=== PATIENT | male | born 1955 | race Caucasian/White ===

== ENCOUNTER → 2018-06-01 | Outpatient (CLI) | payer OTHER ==
[2018-06-01 10:33] LABS: HGB 15.9 gm/dL (13.0-17.5); MCH 32.3 pg (25.0-35.0); MCV 97.9 fL (80.0-100.0); Mean Platelet Volume 13.6; RBC 4.91 m/uL (4.30-5.90); RDW 13.6 % (11.5-15.5)
[2018-06-01 10:57] LABS: Anion Gap 9 mmol/L; Blood Urea Nitrogen 22 mg/dL (9-20); Carbon Dioxide 24 mmol/L (22-30); Chloride 105 mmol/L (98-107); Glucose 135 mg/dL (74-99); Potassium 4.7 mmol/L (3.5-5.1); Sodium 138 mmol/L (137-145)
[2018-06-01 12:25] LABS: Platelet Count 27 k/uL (150-450)
== END | disposition home or self-care (01) ==
LOC: LABPAT 09:56
PROVIDERS: ATTEND Internal Medicine Clinical Cardiac Electrophysiology
DX: Z01.812 Encounter for preprocedural laboratory examination (principal); I25.5 Ischemic cardiomyopathy; I25.10 Atherosclerotic heart disease of native coronary artery without angina pectoris; I10 Essential (primary) hypertension
CPT/HCPCS: 80051; 82565; 82947; 84520; 85027

== ENCOUNTER 2018-06-04 09:53 | Day surgery (SDC) | payer OTHER ==
[2018-06-01 12:11] VITALS: BMI 35.5
[~2018-06-04 09:53] MED LIST: SODIUM CHLORIDE 0.9% 1,000 ML IV SCH
[2018-06-04] MEDS ORDERED: ceFAZolin 1,000 MG in SODIUM CHLORIDE 0.9% IRRIGATIO 250 ML IRRIGATION ONE (10:00)
[2018-06-04] MEDS ORDERED: ceFAZolin IN SWFI 2 GM/20 ML SYRINGE IVP ONE (10:00)
[2018-06-04 10:48] LABS: Basophils % (A) 0 %; Eosinophils # (A) 0.1 k/uL (0-0.7); Eosinophils % (A) 1 %; HCT 42.7 % (39.0-53.0); HGB 14.8 gm/dL (13.0-17.5); Lymphocytes # (A) 1.9 k/uL (1.0-4.8); Lymphocytes % (A) 19 %; MCHC 34.8 g/dL (31.0-37.0); MCV 95.1 fL (80.0-100.0); Mean Platelet Volume 14.6; Monocytes # (A) 0.8 k/uL (0-1.0); Monocytes % (A) 8 %; Neutrophils # (A) 7.3 k/uL (1.3-7.7); Neutrophils % (A) 70 %; RBC 4.49 m/uL (4.30-5.90); RDW 13.5 % (11.5-15.5); WBC 10.4 k/uL (3.8-10.6)
[2018-06-04 10:49] LABS: Anion Gap 7 mmol/L; Blood Urea Nitrogen 16 mg/dL (9-20); Calcium 9.2 mg/dL (8.4-10.2); Carbon Dioxide 23 mmol/L (22-30); Chloride 107 mmol/L (98-107); Glucose 130 mg/dL (74-99); Potassium 4.5 mmol/L (3.5-5.1); Sodium 137 mmol/L (137-145)
[2018-06-04 11:08] LABS: Large Platelets Present; Platelet Count 28 k/uL (150-450)
[2018-06-04 11:09] LABS: Polychromasia Present
[2018-06-04] MEDS ORDERED: MIDAZOLAM 2 MG/2 ML VIAL ONE (13:56)
[2018-06-04] MEDS ORDERED: PROPOFOL 10 MG/ML 20 ML VIAL IV ONE (13:56)
[2018-06-04] MEDS ORDERED: fentaNYL (PF) 50 MCG/ML 2 ML AMP ONE (13:56)
[2018-06-04] MEDS ORDERED: IOPAMIDOL-250 50ML BTL IV ONE (14:10)
[2018-06-04] MEDS ORDERED: LIDOCAINE 1% INJ 10MG/ML (20 ML MDV) ONE (14:30)
[2018-06-04] MEDS ORDERED: LIDOCAINE 1% INJ 10MG/ML (20 ML MDV) SQ ONE ×2 (14:42→14:51)
[2018-06-04] MEDS ORDERED: ACETAMINOPHEN TAB 325 MG TAB PO PRN ×2 (16:01→16:02)
[2018-06-04] MEDS ORDERED: ACETAMINOPHEN IV (For NPO) 1,000 MG in EMPTY BAG 1 BAG IVPB ONE (16:02)
[2018-06-04] MEDS ORDERED: ACETAMINOPHEN IV (For NPO) 1,000 MG/100 ML VIAL IVPB ONE (16:30)
--- NOTE | 2018-06-04 17:07 | LTR ---
DATE OF SERVICE: 06/04/[address] Ibrahim: I had the pleasure of seeing Martínez Esposito in electrophysiology followup. Mr. Esposito underwent a single-chamber ICD implantation successfully. He does have severe thrombocytopenia, but he had a minimal blood loss through the procedure. He tolerated the procedure well without any acute complications. He will be in the hospital overnight for IV antibiotics. He will be discharged home tomorrow. Unfortunately, since he is on steroids, he obviously is a slightly higher risk of long- term infection, but this is obviously unavoidable because of his thrombocytopenia and need for his immunosuppressive therapy. Thank you for entrusting me in the care of your patient. Warm regards, Sincerely, CRISTEL / HERBIE: [id number] /
--- NOTE | 2018-06-04 17:07 | PCN ---
PROCEDURE NOTE Martínez Esposito is a 62-year-old male patient who has severe ischemic cardiomyopathy, ejection fraction 30-35%. Class 2 heart failure on chronic medical therapy. No ischemia on recent stress testing, frequent PVCs who was recommended a single-chamber ICD for primary prevention of sudden cardiac . He has severe thrombocytopenia and is on steroid therapy and now is on a low dose of 5 mg p.o. daily. His platelet count is 28,000. DESCRIPTION OF PROCEDURE: Brought to the EP lab in a fasting state. Written informed consent was obtained prior to the procedure. The left shoulder area was prepped and draped as per protocol. 1% lidocaine was used for local anesthesia. AQUA-Mantis and the Aqua blade was used to provide hemostasis. A pocket was made in the left pectoral area. Complete hemostasis was assured throughout the procedure. There was minimal blood loss. The left axillary vein was accessed at a single point and via an appropriately-sized introducer sheath, a [employer] ICD lead was positioned in the low RV septum and screwed in. This was model number [id number] [id number], 58 cm length and serial number [id number]. The R-waves were 11.7 mV. Pacing impedance 700 ohms, pacing threshold 0.5 V at 0.5 milliseconds. High-voltage impedance 82 ohms, current of injury protocol was followed. Leads secured to the underlying pectoralis fascia with 2 nonabsorbable sutures. Pocket was irrigated with antibiotic solution. Leads were then connected to the generator. Ellipse VR CD 1411-36 Q serial [id number]. The leads and the generator were then placed in subfascial pocket and the wound was closed in 3 layers and dressed per protocol. The device was then programmed to VVI at 40 beats per minute, parameters were programmed. Appropriate antitachycardia pacing cardioversion defibrillation programmed. RESULTS: Successful single-chamber ICD implantation for primary prevention of sudden cardiac in a gentleman with severe ischemic cardiomyopathy, congestive heart failure class 2, old myocardial infarction, coronary artery disease, thrombocytopenia, and frequent PVCs. MMODL / IJN: [id number] /
[2018-06-04] MEDS: ceFAZolin IN SWFI 2 GM/20 ML SYRINGE IVP SCH ×2 (17:36→22:31)
[2018-06-04] MEDS: PANTOPRAZOLE 40 MG TABLET PO SCH (17:37)
[2018-06-04] MEDS: HYDROcodone/APAP 5-325MG 1 EACH TAB PO PRN ×2 (17:39→22:31)
[2018-06-04] MEDS: CARVEDILOL 6.25 MG TAB PO SCH (20:28)
[2018-06-04] MEDS ORDERED: ATORVASTATIN 40 MG TAB PO SCH (21:00)
[2018-06-05] MEDS: ceFAZolin IN SWFI 2 GM/20 ML SYRINGE IVP SCH ×2 (05:47→11:35)
--- NOTE | 2018-06-05 07:04 | XR ---
EXAMINATION TYPE: XR chest 2V DATE OF EXAM: 06/05/2018 COMPARISON: 05/05/2011 HISTORY: 62-year-old male placement check TECHNIQUE: Frontal and lateral views FINDINGS: Heart normal size. Aorta and pulmonary vasculature within normal limits. Left anterior chest wall AIC D generator with right ventricular lead. No consolidation, pneumothorax, or pleural effusion. IMPRESSION: No acute cardiopulmonary process. Left-sided AICD generator with single right ventricular lead.
[2018-06-05] MEDS: CARVEDILOL 6.25 MG TAB PO SCH (07:43)
[2018-06-05] MEDS: PANTOPRAZOLE 40 MG TABLET PO SCH (07:43)
--- NOTE | 2018-06-05 08:30 | P.DS ---
Providers Attending physician: Vito Kim Primary care physician: Jac [facility] Course: Patient is doing well. No chest discomfort dizziness lightheadedness shortness of breath no stroke or swelling over the ICD site Vitals stable afebrile 97.8F pulse rate in the 60s blood pressure 108/65 mmHg normal respirations Breath sounds are clear no rhonchi no crackles Heart sounds S1 and S2 are soft and normal no murmurs or gallops or rub Exchanges are warm No edema Abdomen is soft Impression Ischemic cardiomyopathy Permanent atrial fibrillation Congestive heart failure class II Frequent PVCs CAD him a old [place] Suggest ICD was interrogated today and is within normal limits. Chest x-ray is within normal limits. Patient be discharged home on his cardiac medications after completion of IV antibiotics and will follow-up in the device clinic and 5 days and with me in about 3-4 months DFT testing in 3 months Patient Condition at Discharge: Stable Plan - Discharge Summary Discharge Rx Participant: No New Discharge Prescriptions: Continue RX: predniSONE 5 mg PO QAM RX: Spironolactone [Aldactone] 25 mg PO QAM RX: Cholecalciferol [Vitamin D3] 1,000 unit PO QAM RX: Lisinopril [Zestril] 10 mg PO QAM RX: Omeprazole [PriLOSEC] 20 mg PO BID RX: Carvedilol [Coreg] 6.25 mg PO BID RX: Atorvastatin [Lipitor] 40 mg PO HS RX: Acetaminophen [Tylenol Arthritis] 650 mg PO Q8H PRN PRN Reason: Pain Discharge Medication List RX: Acetaminophen [Tylenol Arthritis] 650 mg PO Q8H PRN 06/01/18 [History] RX: Atorvastatin [Lipitor] 40 mg PO HS 06/01/18 [History] RX: Carvedilol [Coreg] 6.25 mg PO BID 06/01/18 [History] RX: Cholecalciferol [Vitamin D3] 1,000 unit PO QAM 06/01/18 [History] RX: Lisinopril [Zestril] 10 mg PO QAM 06/01/18 [History] RX: Omeprazole [PriLOSEC] 20 mg PO BID 06/01/18 [History] RX: Spironolactone [Aldactone] 25 mg PO QAM 06/01/18 [History] RX: predniSONE 5 mg PO QAM 06/01/18 [History] Follow up Appointment(s)/Referral(s): Vito Kim MD [STAFF PHYSICIAN] - 1 Week (Device clinic follow-up in 5 days Follow-up with Dr. Florence in 3 months) Discharge Disposition: HOME SELF-CARE
[2018-06-05] MEDS ORDERED: SPIRONOLACTONE 25 MG TAB PO SCH (09:00)
[2018-06-05] MEDS ORDERED: predniSONE 5 MG TAB PO SCH (09:00)
[2018-06-05] MEDS ORDERED: LISINOPRIL 10 MG TAB PO SCH (09:00)
[2018-06-05 09:34] VITALS: BP 120/66; PULSE 98; RESP 16; TEMP 97
== END 2018-06-05 12:02 | disposition home or self-care (01) ==
LOC: CATHEP 09:53 → 3OBS 15:51 → CATHEP 06-05 12:02
PROVIDERS: ATTEND Internal Medicine Clinical Cardiac Electrophysiology
DX: I25.5 Ischemic cardiomyopathy (principal); Z00.6 Encounter for examination for normal comparison and control in clinical research program; I48.2 Chronic atrial fibrillation; I11.0 Hypertensive heart disease with heart failure; I50.9 Heart failure, unspecified; I49.3 Ventricular premature depolarization; I25.10 Atherosclerotic heart disease of native coronary artery without angina pectoris; D69.3 Immune thrombocytopenic purpura; I25.2 Old myocardial infarction; J44.9 Chronic obstructive pulmonary disease, unspecified; K21.9 Gastro-esophageal reflux disease without esophagitis; Z95.5 Presence of coronary angioplasty implant and graft; Z79.52 Long term (current) use of systemic steroids; Z79.899 Other long term (current) drug therapy; Z88.6 Allergy status to analgesic agent; Z87.891 Personal history of nicotine dependence
CPT/HCPCS: 33249; 86900; 86901; 80048; 85025; 86850; 71046; C1769 ×2; C1892; C1722; C1777; J0690 ×3; J2001; J0131; J7512; Q9966

== ENCOUNTER 2018-10-11 06:22 | Day surgery (SDC) | payer MEDICARE, OTHER ==
[2018-10-09 14:31] VITALS: BMI 34.7
[~2018-10-11 06:22] MED LIST changes: +LACTATED RINGERS 1,000 ML IV SCH
[2018-10-11 07:10] VITALS: RESP 16; TEMP 8.4
[2018-10-11] MEDS ORDERED: MIDAZOLAM 2 MG/2 ML VIAL ONE (07:18)
[2018-10-11] MEDS ORDERED: PROPOFOL 10 MG/ML 20 ML VIAL IV ONE (07:18)
[2018-10-11] MEDS ORDERED: LIDOCAINE 1% INJ 10MG/ML (20 ML MDV) ONE (07:18)
--- NOTE | 2018-10-11 08:32 | PCN ---
PROCEDURE NOTE Mr. Esposito who was brought in for ICD testing under anesthesia. He had an single- chamber ICD implanted for primary prevention of sudden cardiac about 3 months back. This is the initial testing. The lead was placed on the COI protocol. He has an ellipse VR 1411-36 Q ICD, serial #[id number], [employer]. Pacing threshold is less than 0.25 V at 0.5 milliseconds. R-waves 11.7 mV, pacing impedance 630 ohms, shock impedance 71 ohms. ICD testing was performed under anesthesia, DC fibber shock was used to induce ventricular fibrillation. This was adequately and appropriately detected at least sensitivity and successfully internally defibrillated with a 10-joule shock capped total polarity. Charge time 1.6 seconds, shock impedance 71 ohms. No post shock noise. No dropouts. The device was then reprogrammed, sensitivity was reprogrammed to 0.5 mV and mid-LAD programming was programmed. Appropriate antitachycardia pacing cardioversion defibrillation programmed. RESULT: Successful ICD testing with DFT at or below 10 joules. ICD interrogation with reprogramming performed appropriately. PLAN: Continue heart failure medications. Follow up in the Device Clinic in 4 months and follow with Dr. Kim in 6 months. MMODL / IJN: [id number] /
[2018-10-11 08:33] VITALS: BP 98/57; PULSE 65
== END 2018-10-11 08:45 | disposition home or self-care (01) ==
LOC: CATHEP 06:22
PROVIDERS: ATTEND Internal Medicine Clinical Cardiac Electrophysiology
DX: Z45.02 Encounter for adjustment and management of automatic implantable cardiac defibrillator (principal); I25.10 Atherosclerotic heart disease of native coronary artery without angina pectoris; Z95.5 Presence of coronary angioplasty implant and graft; I25.5 Ischemic cardiomyopathy; E78.5 Hyperlipidemia, unspecified; I49.3 Ventricular premature depolarization; I11.0 Hypertensive heart disease with heart failure; I50.22 Chronic systolic (congestive) heart failure; I25.2 Old myocardial infarction; F17.210 Nicotine dependence, cigarettes, uncomplicated; Z79.52 Long term (current) use of systemic steroids; Z79.899 Other long term (current) drug therapy; Z82.49 Family history of ischemic heart disease and other diseases of the circulatory system; Z88.6 Allergy status to analgesic agent
CPT/HCPCS: 93642; J2250; J2001; J2704

== ENCOUNTER 2020-06-30 12:13 | Inpatient (IN) | payer MEDICARE ==
[2020-06-30] MEDS ORDERED: MORPHINE SULFATE 4 MG/ML SYRINGE IVP STA (13:15)
--- NOTE | 2020-06-30 13:26 | ED ---
General Adult HPI - General Source: family, EMS, RN notes reviewed, old records reviewed Mode of arrival: EMS Limitations: altered mental status, physical limitation <Shanice Severino - Last Filed: 06/30/20 14:31> <Birgit Giles - Last Filed: 07/02/20 23:11> - General Chief complaint: Urogenital Stated complaint: Blood in Urine Time Seen by Provider: 06/30/20 12:41 - History of Present Illness Initial comments: Patient is a 64-year-old male who presents emergency room today for concerns for hematuria from Barrientos catheter output as well as a cough. Patient is here with his daughter who is his main caregiver. Patient was in well health up until 2 weeks ago when he became dizzy and fell down the stairs. Family does not know if a stroke causing him to fall down the stairs but Patient subsequently suffered from a intracranial hemorrhage. Was seen and treated at [facility] and did result in a partial left-sided craniotomy. Patient since that time has been minimal verbal communication. He was also on a ventilator for one week, And reportedly had a feeding tube and indwelling Barrientos catheter. During his hospital stay he had agitation episodes and pulled out his feeding tube and Barrientos catheter. That subsequently resulted in the Patient getting intermittent urinary straight cath's. And upon discharge from the hospital they did put an indwelling Barrientos catheter for the daughter to manage this care. After Patient was extubated Patient continued to improve and was discharged from our Hospital yesterday. They made an [address] from [facility] to their home and were attempting to have visiting nurses establish with his care. Patient did not have a visiting nurse as of today and the daughter's concern with the hematuria and productive cough sound that he needed to be brought to the hospital again for reevaluation. They recorded no sweating or fevers. Patient is mostly nonverbal but will respond occasionally with the daughter with one word answers. Past medical history includes ITP, and hypertension. (Shanice Severino) - Related Data Home Medications Medication Instructions Recorded Confirmed Atorvastatin [Lipitor] 40 mg PO HS 06/01/18 06/30/20 carvediloL [Coreg] 6.25 mg PO BID-W/MEALS 06/01/18 06/30/20 lisinopriL [Zestril] 10 mg PO BID 06/01/18 06/30/20 Tamsulosin HCl [Flomax] 0.4 mg PO DAILY 06/30/20 06/30/20 levETIRAcetam [Keppra] 500 mg PO BID 06/30/20 06/30/20 Allergies Allergy/AdvReac Type Severity Reaction Status Date / Time naproxen sodium [From Aleve] Allergy Rash/Hives Verified 06/30/20 15:14 latex AdvReac Rash/Hives Verified 06/30/20 15:37 Review of Systems ROS Other: All systems not noted in ROS Statement are negative. <Shanice Severino - Last Filed: 06/30/20 14:31> ROS Other: All systems not noted in ROS Statement are negative. <Birgit Giles - Last Filed: 07/02/20 23:11> ROS Statement: Those systems with pertinent positive or pertinent negative responses have been documented in the HPI. Past Medical History Past Medical History: Blood Disorder, Coronary Artery Disease (CAD), CVA/TIA, Hyperlipidemia, Hypertension Additional Past Medical History / Comment(s): Recent fall down stairs 2 weeks ago and had two brain bleeds. History of Any Multi-Drug Resistant Organisms: None Reported Past Surgical History: Back Surgery, Heart Catheterization With Stent, Orthopedic Surgery Additional Past Surgical History / Comment(s): right elbow, craniotomy Past Anesthesia/Blood Transfusion Reactions: No Reported Reaction Date of Last Stent Placement:: 2010 Past Psychological History: No Psychological Hx Reported Smoking Status: Former smoker Past Alcohol Use History: Occasional Past Drug Use History: None Reported - Past Family History Sister(s) Family Medical History: Cancer Additional Family Medical History / Comment(s): lung breast Mother Family Medical History: Cancer Brother(s) Family Medical History: Cancer Additional Family Medical History / Comment(s): colon <Shanice Severino - Last Filed: 06/30/20 14:31> General Exam Limitations: altered mental status, physical limitation General appearance: alert, obtunded, other (Patient is nonverbal for the senior writer. Does not answer questions. Will open his eyes In follow some commands.) Head exam: Present: atraumatic, normocephalic, normal inspection Eye exam: Present: normal appearance, PERRL, EOMI. Absent: scleral icterus, conjunctival injection, periorbital swelling ENT exam: Present: normal exam, mucous membranes dry, mucous membranes moist Neck exam: Present: normal inspection. Absent: tenderness, meningismus, lymphadenopathy Respiratory exam: Present: normal lung sounds bilaterally, other (Patient has lung sounds in left lower base and crackles are noted.). Absent: respiratory distress, wheezes, rales, rhonchi, stridor Cardiovascular Exam: Present: regular rate, normal rhythm, normal heart sounds. Absent: systolic murmur, diastolic murmur, rubs, gallop, clicks GI/Abdominal exam: Present: soft, normal bowel sounds. Absent: distended, tenderness, guarding, rebound, rigid exam: Absent: normal inspection (Patient and likely catheter with purulent drainage around the entrance of catheter. There is blood and clots within the Barrientos.) Extremities exam: Present: normal inspection, full ROM, normal capillary refill. Absent: tenderness, pedal edema, joint swelling, calf tenderness Back exam: Present: normal inspection Neurological exam: Present: alert, oriented X3, CN II-XII intact Psychiatric exam: Present: normal affect Skin exam: Present: warm, dry, intact, normal color. Absent: rash <Shanice Severino - Last Filed: 06/30/20 14:31> - General Exam Comments Initial Comments: 64 year old male, non verbal. No acute distress. (Shaniec Severino) Course Vital Signs 06/30/20 06/30/20 12:15 14:04 Temperature 97.8 F Pulse Rate 80 79 Respiratory 18 18 Rate Blood Pressure 149/75 154/75 O2 Sat by Pulse 95 97 Oximetry Medical Decision Making - Lab Data Result diagrams: 06/30/20 13:06 06/30/20 13:06 - Radiology Data Radiology results: report reviewed <Shanice Severino - Last Filed: 06/30/20 14:31> - Lab Data Result diagrams: 07/02/20 06:54 07/02/20 06:54 <Birgit Giles - Last Filed: 07/02/20 23:11> - Medical Decision Making 64-year-old male with recent intracranial hemorrhage suffering from craniotomy and nonverbal presents emergency department today for evaluation for hematuria and cloudiness in his Barrientos catheter. He returned to his home locally from [facility] after his initial hospital stay from the fall and intracranial hemorrhage. He was also placed on a ventilator. His concern for cough. Patient's chest x-rays reviewed negative for acute process. Patient is a former smoker and underlying COPD history. Patient CBC shows leukocytosis of 20,000. Patient's urinalysis is positive for infection. The initial Barrientos catheter is removed and family states that they would prefer to see if he can urinate on his own if not able to then another Barrientos catheter placed to be placed. At this time he is in a brief to see. Able to urinate on his own. At this time Patient was given IV Rocephin. Discussed case with Dr. Webb who discussed the case with Dr. Nicolas. Family also requests assistance with placement for visiting nurses to help with his care. (Shanice Severino) I was available for consultation in the emergency department. The history and physical exam were done by the midlevel provider. I was consulted for this patients care. I reviewed the case with the midlevel provider and based on their presentation of the patient, I agree with the assessment, medical decision making and plan of care as documented. Chart was dictated using Gamar dictation software. Attempts were made to correct any dictation errors however some typographical errors may persist. Patient was seen during a national state of emergency due to the Covid-19 pandemic. (Birgit Giles) - Lab Data Lab Results 06/30/20 06/30/20 06/30/20 Range/Units 13:06 13:06 13:06 WBC 20.8 H (3.8-10.6) k/uL RBC 3.81 L (4.30-5.90) m/uL Hgb 11.5 L (13.0-17.5) gm/dL Hct 35.8 L (39.0-53.0) % MCV 94.1 (80.0-100.0) fL MCH 30.3 (25.0-35.0) pg MCHC 32.2 (31.0-37.0) g/dL RDW 13.1 (11.5-15.5) % Plt Count 245 (150-450) k/uL Neutrophils % 84 % Lymphocytes % 8 % Monocytes % 4 % Eosinophils % 1 % Basophils % 1 % Neutrophils # 17.4 H (1.3-7.7) k/uL Lymphocytes # 1.7 (1.0-4.8) k/uL Monocytes # 0.9 (0-1.0) k/uL Eosinophils # 0.2 (0-0.7) k/uL Basophils # 0.1 (0-0.2) k/uL Manual Slide Review Large Platelets Hypochromasia PT 10.6 (9.0-12.0) sec INR 1.0 (<1.2) APTT 23.1 (22.0-30.0) sec Sodium (137-145) mmol/L Potassium (3.5-5.1) mmol/L Chloride (98-107) mmol/L Carbon Dioxide (22-30) mmol/L Anion Gap mmol/L BUN (9-20) mg/dL Creatinine (0.66-1.25) mg/dL Est GFR (CKD-EPI)AfAm (>60 ml/min/1.73 sqM) Est GFR (CKD-EPI)NonAf (>60 ml/min/1.73 sqM) Glucose (74-99) mg/dL Plasma Lactic Acid Werner (0.7-2.0) mmol/L Calcium (8.4-10.2) mg/dL Total Bilirubin (0.2-1.3) mg/dL AST (17-59) U/L ALT (4-49) U/L Alkaline Phosphatase (38-126) U/L Total Protein (6.3-8.2) g/dL Albumin (3.5-5.0) g/dL Urine Color Red Urine Appearance Cloudy (Clear) Urine pH 6.0 (5.0-8.0) Ur Specific Valier 1.022 (1.001-1.035) Urine Protein 2+ H (Negative) Urine Glucose (UA) Negative (Negative) Urine Ketones Negative (Negative) Urine Blood Large H (Negative) Urine Nitrite Negative (Negative) Urine Bilirubin Negative (Negative) Urine Urobilinogen <2.0 (<2.0) mg/dL Ur Leukocyte Esterase Large H (Negative) Urine RBC >182 H (0-5) /hpf Urine WBC >182 H (0-5) /hpf Urine Bacteria Occasional H (None) /hpf Urine Mucus Many H (None) /hpf 08/25/20 08/25/20 08/26/20 Range/Units 13:06 13:06 08:54 WBC 19.9 H (3.8-10.6) k/uL RBC 3.35 L (4.30-5.90) m/uL Hgb 10.3 L (13.0-17.5) gm/dL Hct 31.7 L (39.0-53.0) % MCV 94.6 (80.0-100.0) fL MCH 30.8 (25.0-35.0) pg MCHC 32.6 (31.0-37.0) g/dL RDW 13.3 (11.5-15.5) % Plt Count 185 (150-450) k/uL Neutrophils % % Lymphocytes % % Monocytes % % Eosinophils % % Basophils % % Neutrophils # (1.3-7.7) k/uL Lymphocytes # (1.0-4.8) k/uL Monocytes # (0-1.0) k/uL Eosinophils # (0-0.7) k/uL Basophils # (0-0.2) k/uL Manual Slide Review Large Platelets Hypochromasia Slight PT (9.0-12.0) sec INR (<1.2) APTT (22.0-30.0) sec Sodium 135 L (137-145) mmol/L Potassium 4.5 (3.5-5.1) mmol/L Chloride 105 (98-107) mmol/L Carbon Dioxide 21 L (22-30) mmol/L Anion Gap 9 mmol/L BUN 17 (9-20) mg/dL Creatinine 0.48 L (0.66-1.25) mg/dL Est GFR (CKD-EPI)AfAm >90 (>60 ml/min/1.73 sqM) Est GFR (CKD-EPI)NonAf >90 (>60 ml/min/1.73 sqM) Glucose 108 H (74-99) mg/dL Plasma Lactic Acid Werner 0.9 (0.7-2.0) mmol/L Calcium 9.2 (8.4-10.2) mg/dL Total Bilirubin 0.8 (0.2-1.3) mg/dL AST 74 H (17-59) U/L ALT 93 H (4-49) U/L Alkaline Phosphatase 99 (38-126) U/L Total Protein 6.8 (6.3-8.2) g/dL Albumin 3.6 (3.5-5.0) g/dL Urine Color Urine Appearance (Clear) Urine pH (5.0-8.0) Ur Specific Valier (1.001-1.035) Urine Protein (Negative) Urine Glucose (UA) (Negative) Urine Ketones (Negative) Urine Blood (Negative) Urine Nitrite (Negative) Urine Bilirubin (Negative) Urine Urobilinogen (<2.0) mg/dL Ur Leukocyte Esterase (Negative) Urine RBC (0-5) /hpf Urine WBC (0-5) /hpf Urine Bacteria (None) /hpf Urine Mucus (None) /hpf 07/01/20 07/02/20 07/02/20 Range/Units 08:54 06:54 06:54 WBC 14.4 H (3.8-10.6) k/uL RBC 3.53 L (4.30-5.90) m/uL Hgb 10.8 L (13.0-17.5) gm/dL Hct 33.7 L (39.0-53.0) % MCV 95.6 (80.0-100.0) fL MCH 30.5 (25.0-35.0) pg MCHC 31.9 (31.0-37.0) g/dL RDW 13.5 (11.5-15.5) % Plt Count 182 (150-450) k/uL Neutrophils % 82 % Lymphocytes % 10 % Monocytes % 5 % Eosinophils % 1 % Basophils % 1 % Neutrophils # 11.7 H (1.3-7.7) k/uL Lymphocytes # 1.4 (1.0-4.8) k/uL Monocytes # 0.7 (0-1.0) k/uL Eosinophils # 0.2 (0-0.7) k/uL Basophils # 0.1 (0-0.2) k/uL Manual Slide Review Performed Large Platelets Present Hypochromasia Slight PT (9.0-12.0) sec INR (<1.2) APTT (22.0-30.0) sec Sodium 136 L 139 (137-145) mmol/L Potassium 3.5 3.7 (3.5-5.1) mmol/L Chloride 104 108 H (98-107) mmol/L Carbon Dioxide 24 25 (22-30) mmol/L Anion Gap 8 6 mmol/L BUN 11 10 (9-20) mg/dL Creatinine 0.50 L 0.49 L (0.66-1.25) mg/dL Est GFR (CKD-EPI)AfAm >90 >90 (>60 ml/min/1.73 sqM) Est GFR (CKD-EPI)NonAf >90 >90 (>60 ml/min/1.73 sqM) Glucose 133 H 95 (74-99) mg/dL Plasma Lactic Acid Werner (0.7-2.0) mmol/L Calcium 8.7 9.0 (8.4-10.2) mg/dL Total Bilirubin 0.4 (0.2-1.3) mg/dL AST 43 (17-59) U/L ALT 77 H (4-49) U/L Alkaline Phosphatase 90 (38-126) U/L Total Protein 5.7 L (6.3-8.2) g/dL Albumin 3.0 L (3.5-5.0) g/dL Urine Color Urine Appearance (Clear) Urine pH (5.0-8.0) Ur Specific Valier (1.001-1.035) Urine Protein (Negative) Urine Glucose (UA) (Negative) Urine Ketones (Negative) Urine Blood (Negative) Urine Nitrite (Negative) Urine Bilirubin (Negative) Urine Urobilinogen (<2.0) mg/dL Ur Leukocyte Esterase (Negative) Urine RBC (0-5) /hpf Urine WBC (0-5) /hpf Urine Bacteria (None) /hpf Urine Mucus (None) /hpf 06/30/20 13:35 EKG shows normal sinus rhythm left on a branch block. Prolonged QT. Abnormal EKG. Ventricular rate of 78 bpm. NM interval is 140 ms. Respirations 110 ms. QT QTc is 4:30/4 and 90 ms. (Shanice Severino) - Radiology Data Chest x-ray is negative for any acute cardiopulmonary disease. (Shanice Severino) Disposition Is patient prescribed a controlled substance at d/c from ED?: No Time of Disposition: 14:33 <Shanice Severino - Last Filed: 06/30/20 14:31> <Birgit Giles - Last Filed: 07/02/20 23:11> Clinical Impression: SIRS (systemic inflammatory response syndrome), UTI (urinary tract infection), Hx of intracranial hemorrhage, S/P craniotomy Disposition: ADMITTED IP TO THIS HOSP Condition: Stable
[2020-06-30] MEDS: SODIUM CHLORIDE 0.9% 500 ML 500 ML IV SCH ×2 (13:27→14:22)
--- NOTE | 2020-06-30 13:30 | XR ---
EXAMINATION TYPE: XR chest 2V DATE OF EXAM: 06/30/2020 COMPARISON: 06/05/2018 HISTORY: Shortness of breath TECHNIQUE: Frontal and lateral views of the chest are obtained. FINDINGS: Scattered senescent parenchymal changes noted. Hyperinflation compatible with COPD. No evidence for infiltrate. No evidence for atelectasis. Heart size is stable. Mediastinal structures are stable and grossly unremarkable. No evidence for hilar prominence. Degenerative changes dorsal spine. IMPRESSION: 1. No evidence for acute pulmonary disease.
[2020-06-30 13:33] LABS: Basophils # (A) 0.1 k/uL (0-0.2); Basophils % (A) 1 %; Eosinophils # (A) 0.2 k/uL (0-0.7); Eosinophils % (A) 1 %; HCT 35.8 % (39.0-53.0); HGB 11.5 gm/dL (13.0-17.5); Lymphocytes # (A) 1.7 k/uL (1.0-4.8); Lymphocytes % (A) 8 %; MCH 30.3 pg (25.0-35.0); MCHC 32.2 g/dL (31.0-37.0); MCV 94.1 fL (80.0-100.0); Mean Platelet Volume 11.7; Monocytes # (A) 0.9 k/uL (0-1.0); Monocytes % (A) 4 %; Neutrophils # (A) 17.4 k/uL (1.3-7.7); Neutrophils % (A) 84 %; Platelet Count 245 k/uL (150-450); RBC 3.81 m/uL (4.30-5.90); RDW 13.1 % (11.5-15.5); WBC 20.8 k/uL (3.8-10.6)
[2020-06-30 13:39] LABS: Partial Thromboplastin Time 23.1 sec (22.0-30.0); Prothrombin Time 10.6 sec (9.0-12.0)
[2020-06-30 13:40] LABS: ALT 93 U/L (4-49); AST 74 U/L (17-59); African American GFR (CKD) >90 (>60 ml/min/1.73 sqM); Albumin 3.6 g/dL (3.5-5.0); Alkaline Phosphatase 99 U/L (38-126); Anion Gap 9 mmol/L; Blood Urea Nitrogen 17 mg/dL (9-20); Calcium 9.2 mg/dL (8.4-10.2); Carbon Dioxide 21 mmol/L (22-30); Chloride 105 mmol/L (98-107); Glucose 108 mg/dL (74-99); Non-African American GFR(CKD) >90 (>60 ml/min/1.73 sqM); Sodium 135 mmol/L (137-145); Total Bilirubin 0.8 mg/dL (0.2-1.3); Total Protein 6.8 g/dL (6.3-8.2)
[2020-06-30 13:46] LABS: Appearance,Urine Cloudy (Clear); Bacteria,Urine Occasional /hpf; Bilirubin,Urine Negative (Negative); Blood,Urine Large (Negative); Color,Urine Red; Glucose,Urine (UA) Negative (Negative); Ketones,Urine Negative (Negative); Leukocyte Esterase,Urine Large (Negative); Mucus,Urine Many /hpf; Nitrite,Urine Negative (Negative); Protein,Urine 2+ (Negative); RBC,Urine >182 /hpf (0-5); Specific Gravity,Urine 1.022 (1.001-1.035); Urobilinogen,Urine <2.0 mg/dL (<2.0); WBC,Urine >182 /hpf (0-5)
[2020-06-30] MEDS ORDERED: cefTRIAXone IN SWFI 1,000 MG/10 ML SYRINGE IVP STA (13:49)
[2020-06-30 13:51] LABS: Potassium 4.5 mmol/L (3.5-5.1)
[2020-06-30] MEDS ORDERED: ONDANSETRON 4 MG/2 ML VIAL IVP PRN (14:34)
[2020-06-30] MEDS ORDERED: MORPHINE SULFATE 4 MG/ML SYRINGE IV PRN (14:34)
[2020-06-30] MEDS ORDERED: NALOXONE 0.4 MG/ML 1 ML VIAL IV PRN (14:34)
[2020-06-30] MEDS: SODIUM CHLORIDE 0.9% 1,000 ML IV SCH (15:31)
[2020-06-30] MEDS ORDERED: QUEtiapine 25 MG TAB PO PRN (15:57)
--- NOTE | 2020-06-30 16:49 | P.HPIM ---
History of Present Illness Patient is a 64-year-old male who presents emergency room today for concerns for hematuria from Barrientos catheter output as well as a cough. Patient is here with his daughter who is his main caregiver. Patient was in well health up until 2 weeks ago when he became dizzy and fell down the stairs. Family does not know if a stroke causing him to fall down the stairs but Patient subsequently suffered from a intracranial hemorrhage. Was seen and treated at [facility] and did result in a partial left-sided craniotomy. Patient since that time has been minimal verbal communication. He was also on a ventilator for one week, And reportedly had a feeding tube and indwelling Barrientos catheter. During his hospital stay he had agitation episodes and pulled out his feeding tube and Barrientos catheter. That subsequently resulted in the Patient getting intermittent urinary straight cath's. And upon discharge from the hospital they did put an indwelling Barrientos catheter for the daughter to manage this care. After Patient was extubated Patient continued to improve and was discharged from our Hospital yesterday. They made an [address] from [facility] to their home and were attempting to have visiting nurses establish with his care. Patient did not have a visiting nurse as of today and the daughter's concern with the hematuria and productive cough sound that he needed to be brought to the hospital again for reevaluation. They recorded no sweating or fevers. Patient is mostly nonverbal but will respond occasionally with the daughter with one word answers. Patient didn't have any aneurysm and unsure whether patient had a spontaneous intracranial hemorrhage are secondary to trauma. Patient's disposition to subacute rehabitation was discussed with the family and family family decided to take him home and patient was discharged home with home care. Family is unable to take care of him at all and noticed significant amount of clots in the Barrientos catheter and also purulent discharge from the site of insertion. Patient had urinalysis which was significantly abnormal with significantly elevated white b lood cell count of RBC and leukocyte esterase. Patient was started on Rocephin. Barrientos catheter was removed but plan is to do straight catheterization today with frequent bladder scans. Patient did have agitation episodes of the other hospital. Patient was discharged yesterday. She was started on Flomax about 3 days ago, patient doesn't have any fever does have significant leukocytosis with white blood cell count going up to 20,000 Review of Systems Unable to obtain due to his clinical condition Past Medical History Past Medical History: Blood Disorder, Coronary Artery Disease (CAD), CVA/TIA, Hyperlipidemia, Hypertension Additional Past Medical History / Comment(s): Recent fall down stairs 2 weeks ago and had two brain bleeds. History of Any Multi-Drug Resistant Organisms: None Reported Past Surgical History: Back Surgery, Heart Catheterization With Stent, Orthopedic Surgery Additional Past Surgical History / Comment(s): right elbow, craniotomy Past Anesthesia/Blood Transfusion Reactions: No Reported Reaction Date of Last Stent Placement:: 2010 Past Psychological History: No Psychological Hx Reported Smoking Status: Former smoker Past Alcohol Use History: Occasional Additional Past Alcohol Use History / Comment(s): has smoked for about 50 yrs; cut down to 5 cigs a day Past Drug Use History: None Reported - Past Family History Sister(s) Family Medical History: Cancer Additional Family Medical History / Comment(s): lung breast Mother Family Medical History: Cancer Brother(s) Family Medical History: Cancer Additional Family Medical History / Comment(s): colon Medications and Allergies Home Medications Medication Instructions Recorded Confirmed Type Atorvastatin [Lipitor] 40 mg PO HS 06/01/18 06/30/20 History carvediloL [Coreg] 6.25 mg PO BID-W/MEALS 06/01/18 06/30/20 History lisinopriL [Zestril] 10 mg PO BID 06/01/18 06/30/20 History Tamsulosin HCl [Flomax] 0.4 mg PO DAILY 06/30/20 06/30/20 History levETIRAcetam [Keppra] 500 mg PO BID 06/30/20 06/30/20 History Allergies Allergy/AdvReac Type Severity Reaction Status Date / Time naproxen sodium [From Aleve] Allergy Rash/Hives Verified 06/30/20 15:14 latex AdvReac Rash/Hives Verified 06/30/20 15:37 Physical Exam Vitals: Vital Signs Temp Pulse Pulse Resp BP BP Pulse Ox 06/30/20 16:12 98.1 F 71 18 154/70 95 06/30/20 16:00 71 18 06/30/20 15:36 98.3 F 81 18 160/72 98 06/30/20 14:04 79 18 154/75 97 06/30/20 12:15 97.8 F 80 18 149/75 95 Intake and Output 06/30/20 06/30/20 06/30/20 06:59 14:59 22:59 Other: Voiding Method Indwelling Catheter Indwelling Catheter Weight 113.398 kg 113.398 kg PHYSICAL EXAMINATION: GENERAL: Patient is nonverbal but appears to understand some. HEENT: Pupils are round and equally reacting to light. EOMI. No scleral icterus. No conjunctival pallor. Normocephalic, patient has left scalp craniotomy scar. No pharyngeal erythema. No thyromegaly. CARDIOVASCULAR: S1 and S2 present. No murmurs, rubs, or gallops. PULMONARY: Chest is clear to auscultation, no wheezing or crackles. ABDOMEN: Soft, nontender, nondistended, normoactive bowel sounds. No palpable organomegaly. MUSCULOSKELETAL: No joint swelling or deformity. EXTREMITIES: No cyanosis, clubbing, or pedal edema. NEUROLOGICAL: Does have decreased strength in both lower extremities unable to clearly assess as patient doesn't follow commands very well SKIN: No rashes. Results CBC & Chem 7: 06/30/20 13:06 06/30/20 13:06 Labs: Abnormal Lab Results - Last 24 Hours (Table) 06/30/20 06/30/20 06/30/20 Range/Units 13:06 13:06 13:06 WBC 20.8 H (3.8-10.6) k/uL RBC 3.81 L (4.30-5.90) m/uL Hgb 11.5 L (13.0-17.5) gm/dL Hct 35.8 L (39.0-53.0) % Neutrophils # 17.4 H (1.3-7.7) k/uL Sodium 135 L (137-145) mmol/L Carbon Dioxide 21 L (22-30) mmol/L Creatinine 0.48 L (0.66-1.25) mg/dL Glucose 108 H (74-99) mg/dL AST 74 H (17-59) U/L ALT 93 H (4-49) U/L Urine Protein 2+ H (Negative) Urine Blood Large H (Negative) Ur Leukocyte Esterase Large H (Negative) Urine RBC >182 H (0-5) /hpf Urine WBC >182 H (0-5) /hpf Urine Bacteria Occasional H (None) /hpf Urine Mucus Many H (None) /hpf Thrombosis Risk Factor Assmnt - Choose All That Apply Each Risk Factor Represents 2 Points: Age 61-74 years, Major surgery Thrombosis Risk Factor Assessment Total Risk Factor Score: 4 Thrombosis Risk Factor Assessment Level: Moderate Risk Assessment and Plan Plan: - Barrientos catheter related urinary tract infection and hematuria: Patient with any other antibiotics we will await urine cultures. Barrientos catheter was removed. Patient will bladder scan every 6 hours with straight catheterizations. -Recent intracranial hemorrhage, stroke secondary to that, patient was status post craniotomy was on ventilator support for long time and subsequently extubated. Patient is nonverbal will obtain PT and OT consultation will also obtain a renal consultation for possible inpatient rehabilitation placement patient was pretty functional before this event. -Hypertension -Mildly elevated liver enzymes nonspecific elevation we'll repeat liver enzymes tomorrow -Urinary retention secondary to stroke and intracranial hemorrhage will monitor as mentioned above -Coronary artery disease -Hyperlipidemia
[2020-06-30] MEDS: ATORVASTATIN 40 MG TAB PO SCH (21:50)
[2020-06-30] MEDS: lisinopriL 10 MG TAB PO SCH (21:51)
[2020-06-30] MEDS: levETIRAcetam 500 MG TAB PO SCH (21:51)
[2020-07-01] MEDS: SODIUM CHLORIDE 0.9% 1,000 ML IV SCH ×3 (00:26→22:05)
--- NOTE | 2020-07-01 06:01 | P.CONS ---
History of Present Illness - Chief Complaint Medical debility - History of Present Illness I had the opportunity to see patient for inpatient rehab consultation with regard to medical debility. He was admitted to [facility] June 30 with hematuria and cough of 2 days' duration. History of recent fall with intracranial hemorrhage status post left craniotomy. Patient discharged home in the care of support services. Apparently support services is yet to start. Patient brought in with symptoms. chest x-ray negative. is been caregiver. PT and OT prescribed and I have added speech therapy at this time. Previous functional history unobtainable from patient. Review of Systems Review of systems: ENT: Denies sneezes or discharge. Eyes: Denies discharge or photophobia. Cardiac: Denies chest pain or palpitation. Pulmonary: Denies cough or shortness of breath. Gastrointestinal: Denies nausea, emesis, constipation, diarrhea. Genitourinary: Denies discharge or frequency. Musculoskeletal: Denies muscle or bone aches. Neurologic: does not respond to verbal or physical cues or gestures. Local response to noxious stimulus. Endocrine: Denies shakes or sweats. Oncology: Denies cancers. Dermatologic: Denies rash, itching, pruritus. ALLERGY/immunology: Denies sneezes, rashes. Past Medical History Past Medical History: Blood Disorder, Coronary Artery Disease (CAD), CVA/TIA, Hyperlipidemia, Hypertension Additional Past Medical History / Comment(s): Recent fall down stairs 2 weeks ago and had two brain bleeds. History of Any Multi-Drug Resistant Organisms: None Reported Past Surgical History: Back Surgery, Heart Catheterization With Stent, Orth opedic Surgery Additional Past Surgical History / Comment(s): right elbow, craniotomy Past Anesthesia/Blood Transfusion Reactions: No Reported Reaction Date of Last Stent Placement:: 2010 Past Psychological History: No Psychological Hx Reported Smoking Status: Former smoker Past Alcohol Use History: Occasional Additional Past Alcohol Use History / Comment(s): has smoked for about 50 yrs; cut down to 5 cigs a day Past Drug Use History: None Reported - Past Family History Sister(s) Family Medical History: Cancer Additional Family Medical History / Comment(s): lung breast Mother Family Medical History: Cancer Brother(s) Family Medical History: Cancer Additional Family Medical History / Comment(s): colon Medications and Allergies Home Medications Medication Instructions Recorded Confirmed Type Atorvastatin [Lipitor] 40 mg PO HS 07/27/18 08/25/20 History carvediloL [Coreg] 6.25 mg PO BID-W/MEALS 06/01/18 06/30/20 History lisinopriL [Zestril] 10 mg PO BID 06/01/18 06/30/20 History Tamsulosin HCl [Flomax] 0.4 mg PO DAILY 06/30/20 06/30/20 History levETIRAcetam [Keppra] 500 mg PO BID 06/30/20 06/30/20 History Allergies Allergy/AdvReac Type Severity Reaction Status Date / Time naproxen sodium [From Aleve] Allergy Rash/Hives Verified 06/30/20 15:14 latex AdvReac Rash/Hives Verified 06/30/20 15:37 Physical Exam Vitals: Vital Signs Temp Pulse Pulse Resp BP BP Pulse Ox 07/01/20 01:50 98.6 F 77 133/72 97 06/30/20 19:25 99.3 F 56 L 12 155/67 96 06/30/20 16:12 98.1 F 71 18 154/70 95 06/30/20 16:00 71 18 06/30/20 15:36 98.3 F 81 18 160/72 98 06/30/20 14:04 79 18 154/75 97 06/30/20 12:15 97.8 F 80 18 149/75 95 Intake and Output 06/30/20 06/30/20 07/01/20 14:59 22:59 06:59 Intake Total 118 Output Total 1400 Balance 118 -1400 Intake: Oral 118 Output: Urine 1400 Straight 700 Other: Voiding Method Indwelling Catheter Diaper Incontinent # Voids 1 1 # Bowel Movements 1 Weight 113.398 kg 113.398 kg Results CBC & Chem 7: 06/30/20 13:06 06/30/20 13:06 Labs: Abnormal Lab Results - Last 24 Hours (Table) 06/30/20 06/30/20 06/30/20 Range/Units 13:06 13:06 13:06 WBC 20.8 H (3.8-10.6) k/uL RBC 3.81 L (4.30-5.90) m/uL Hgb 11.5 L (13.0-17.5) gm/dL Hct 35.8 L (39.0-53.0) % Neutrophils # 17.4 H (1.3-7.7) k/uL Sodium 135 L (137-145) mmol/L Carbon Dioxide 21 L (22-30) mmol/L Creatinine 0.48 L (0.66-1.25) mg/dL Glucose 108 H (74-99) mg/dL AST 74 H (17-59) U/L ALT 93 H (4-49) U/L Urine Protein 2+ H (Negative) Urine Blood Large H (Negative) Ur Leukocyte Esterase Large H (Negative) Urine RBC >182 H (0-5) /hpf Urine WBC >182 H (0-5) /hpf Urine Bacteria Occasional H (None) /hpf Urine Mucus Many H (None) /hpf Microbiology - Last 24 Hours (Table) 06/30/20 13:06 Urine Culture - Preliminary Urine,Voided Assessment and Plan (1) Hx of intracranial hemorrhage Current Visit: Yes Status: Acute Code(s): Z86.79 - PERSONAL HISTORY OF OTHER DISEASES OF THE CIRCULATORY SYSTEM SNOMED Code(s): 98592306767401091 (2) SIRS (systemic inflammatory response syndrome) Current Visit: Yes Status: Acute Code(s): R65.10 - SIRS OF NON-INFECTIOUS O RIGIN W/O ACUTE ORGAN DYSFUNCTION SNOMED Code(s): 169181075 (3) UTI (urinary tract infection) Current Visit: Yes Status: Acute Code(s): N39.0 - URINARY TRACT INFECTION, SITE NOT SPECIFIED SNOMED Code(s): 70934576 Plan: impression: 1. Medical debility. 2. Status post intercranial hemorrhage and left craniotomy resultant aphasia and right hemiparesthesias. 3. SIRS and UTI. 5. Dyslipidemia. 6. Coronary artery disease. 7. History of stroke. 8. Blood disorder. Comments and plan: PT, OT, [employer] prescribed. We'll follow therapies with yourself for possible need and benefit of inpatient rehab.
[2020-07-01] MEDS: carvediloL 6.25 MG TAB PO SCH ×2 (07:31→16:46)
[2020-07-01] MEDS: TAMSULOSIN 0.4 MG CAP.ER.24H PO SCH (07:31)
[2020-07-01] MEDS: lisinopriL 10 MG TAB PO SCH ×2 (07:31→21:58)
[2020-07-01] MEDS: levETIRAcetam 500 MG TAB PO SCH ×2 (07:32→21:58)
[2020-07-01] MEDS: PANTOPRAZOLE 40 MG/10 ML VIAL IV SCH (07:43)
[2020-07-01 09:39] LABS: HCT 31.7 % (39.0-53.0); HGB 10.3 gm/dL (13.0-17.5); Hypochromasia Slight; MCH 30.8 pg (25.0-35.0); MCHC 32.6 g/dL (31.0-37.0); MCV 94.6 fL (80.0-100.0); Mean Platelet Volume 11.9; Platelet Count 185 k/uL (150-450); RBC 3.35 m/uL (4.30-5.90); RDW 13.3 % (11.5-15.5); WBC 19.9 k/uL (3.8-10.6)
[2020-07-01 09:52] LABS: ALT 77 U/L (4-49); AST 43 U/L (17-59); African American GFR (CKD) >90 (>60 ml/min/1.73 sqM); Alkaline Phosphatase 90 U/L (38-126); Anion Gap 8 mmol/L; Blood Urea Nitrogen 11 mg/dL (9-20); Calcium 8.7 mg/dL (8.4-10.2); Carbon Dioxide 24 mmol/L (22-30); Chloride 104 mmol/L (98-107); Glucose 133 mg/dL (74-99); Non-African American GFR(CKD) >90 (>60 ml/min/1.73 sqM); Potassium 3.5 mmol/L (3.5-5.1); Sodium 136 mmol/L (137-145); Total Bilirubin 0.4 mg/dL (0.2-1.3); Total Protein 5.7 g/dL (6.3-8.2)
--- NOTE | 2020-07-01 13:07 | P.PN ---
Subjective Progress Note Date: 07/01/20 Principal diagnosis: Patient is a 64-year-old male who presents emergency room today for concerns for hematuria from Barrientos catheter output as well as a cough. Patient is here with his daughter who is his main caregiver. Patient was in well health up until 2 weeks ago when he became dizzy and fell down the stairs. Family does not know if a stroke causing him to fall down the stairs but Patient subsequently suffered from a intracranial hemorrhage. Was seen and treated at [facility] and did result in a partial left-sided craniotomy. Patient since that time has been minimal verbal communication. He was also on a ventilator for one week, And reportedly had a feeding tube and indwelling Barrientos catheter. During his hospital stay he had agitation episodes and pulled out his feeding tube and Barrientos catheter. That subsequently resulted in the Patient getting intermittent urinary straight cath's. And upon discharge from the hospital they did put an indwelling Barrientos catheter for the daughter to manage this care. After Patient was extubated Patient continued to improve and was discharged from our Hospital yesterday. They made an [address] from [facility] to their home and were attempting to have visiting nurses establish with his care. Patient did not have a visiting nurse as of today and the daughter's concern with the hematuria and productive cough sound that he needed to be brought to the hospital again for reevaluation. They recorded no sweating or fevers. Patient is mostly nonverbal but will respond occasionally with the daughter with one word answers. Patient didn't have any aneurysm and unsure whether patient had a spontaneous intracranial hemorrhage are secondary to trauma. Patient's disposition to subacute rehabitation was discussed with the family and family decided to take him home and patient was discharged home with home care. Family is unable to take care of him at all and noticed significant amount of clots in the Barrientos catheter and also purulent discharge from the site of insertion. Patient had urinalysis which was significantly abnormal with significantly elevated white blood cell count of RBC and leukocyte esterase. Patient was started on Rocephin. Barrientos catheter was removed but plan is to do straight catheterization today with frequent bladder scans. Patient did have agitation episodes of the other hospital. Patient was discharged yesterday. She was started on Flomax about 3 days ago, patient doesn't have any fever does have significant leukocytosis with white blood cell count going up to 20,000 07/01/2020 Patient is seen and evaluated and follow-up continues to have retention and an indwelling Barrientos catheter is being replaced. Patient continues to pull at IVs and is not alert and oriented at this time. Patient continues to have confusion and restlessness. Patient is currently being treated for urinary tract infection and awaiting for cultures to finalized. She is maintained on IV antibiotics in the form of ceftriaxone and will continue at this time while waiting for cultures. These management and social working on possible placement as family is unable to care for him in the home. PT/OT to evaluate the patient. Review of systems: Unable to obtain due to current clinical status. All medications have been reviewed. Objective - Vital Signs Vital signs: Vital Signs Temp 98.5 F 07/01/20 07:00 Pulse 70 07/01/20 07:00 Resp 16 07/01/20 07:00 BP 178/70 07/01/20 07:00 Pulse Ox 95 07/01/20 07:00 Intake & Output 06/30/20 07/01/20 07/01/20 18:59 06:59 18:59 Intake Total 118 Output Total 1400 Balance 118 -1400 Weight 113.398 kg Intake: Oral 118 Output: Urine 1400 Straight 700 Other: Voiding Method Indwelling Catheter Diaper Incontinent # Voids 1 # Bowel Movements 1 - Exam GENERAL: Patient is nonverbal but appears to understand some. Anxious, restless, alert and oriented 01 HEENT: Pupils are round and equally reacting to light. EOMI. No scleral icterus. No conjunctival pallor. Normocephalic, patient has left scalp craniotomy scar. No pharyngeal erythema. No thyromegaly. CARDIOVASCULAR: S1 and S2 present. No murmurs, rubs, or gallops. PULMONARY: Chest is clear to auscultation, no wheezing or crackles. ABDOMEN: Soft, nontender, nondistended, normoactive bowel sounds. No palpable organomegaly. MUSCULOSKELETAL: No joint swelling or deformity. EXTREMITIES: No cyanosis, clubbing, or pedal edema. NEUROLOGICAL: Does have decreased strength in both lower extremities unable to clearly assess as patient doesn't follow commands very well SKIN: No rashes. - Labs CBC & Chem 7: 07/01/20 08:54 07/01/20 08:54 Labs: Abnormal Lab Results - Last 24 Hours (Table) 06/30/20 06/30/20 06/30/20 Range/Units 13:06 13:06 13:06 WBC 20.8 H (3.8-10.6) k/uL RBC 3.81 L (4.30-5.90) m/uL Hgb 11.5 L (13.0-17.5) gm/dL Hct 35.8 L (39.0-53.0) % Neutrophils # 17.4 H (1.3-7.7) k/uL Sodium 135 L (137-145) mmol/L Carbon Dioxide 21 L (22-30) mmol/L Creatinine 0.48 L (0.66-1.25) mg/dL Glucose 108 H (74-99) mg/dL AST 74 H (17-59) U/L ALT 93 H (4-49) U/L Total Protein (6.3-8.2) g/dL Albumin (3.5-5.0) g/dL Urine Protein 2+ H (Negative) Urine Blood Large H (Negative) Ur Leukocyte Esterase Large H (Negative) Urine RBC >182 H (0-5) /hpf Urine WBC >182 H (0-5) /hpf Urine Bacteria Occasional H (None) /hpf Urine Mucus Many H (None) /hpf 07/01/20 07/01/20 Range/Units 08:54 08:54 WBC 19.9 H (3.8-10.6) k/uL RBC 3.35 L (4.30-5.90) m/uL Hgb 10.3 L (13.0-17.5) gm/dL Hct 31.7 L (39.0-53.0) % Neutrophils # (1.3-7.7) k/uL Sodium 136 L (137-145) mmol/L Carbon Dioxide (22-30) mmol/L Creatinine 0.50 L (0.66-1.25) mg/dL Glucose 133 H (74-99) mg/dL AST (17-59) U/L ALT 77 H (4-49) U/L Total Protein 5.7 L (6.3-8.2) g/dL Albumin 3.0 L (3.5-5.0) g/dL Urine Protein (Negative) Urine Blood (Negative) Ur Leukocyte Esterase (Negative) Urine RBC (0-5) /hpf Urine WBC (0-5) /hpf Urine Bacteria (None) /hpf Urine Mucus (None) /hpf Microbiology - Last 24 Hours (Table) 06/30/20 13:06 Urine Culture - Preliminary Urine,Voided Assessment and Plan Assessment: -Barrientos catheter related urinary tract infection and hematuria: Patient is maintained on IV ceftriaxone and will continue at this time while awaiting for cultures to finalized. Patient continues to have retention and indwelling Barrientos catheter is being replaced. -Recent intracranial hemorrhage, stroke secondary to that, patient was status post craniotomy was on ventilator support for long time and subsequently extubated. Patient is nonverbal will obtain PT and OT consultation will also obtain a Mary consultation for possible inpatient rehabilitation placement patient was pretty functional before this event. -Hypertension -Mildly elevated liver enzymes nonspecific elevation, improving trending down. AST is 43, ALT is 77 -Urinary retention secondary to stroke and intracranial hemorrhage will monitor as mentioned above, patient continues to retain and requiring indwelling Barrientos catheter replacement. -Coronary artery disease -Hyperlipidemia Plan: Continue current medications, management, and symptomatic treatment. PT/OT to evaluate the patient as patient will be needing ECF or long-term placement. Patient is maintained on IV ceftriaxone and will continue at this time while awaiting for urine cultures. Will continue to monitor closely and repeat a.m. labs. Case management and social work following as well working on possible placement. Further recommendations to follow.
[2020-07-01] MEDS: ACETAMINOPHEN TAB 325 MG TAB PO PRN ×2 (15:49→21:58)
[2020-07-01] MEDS: ATORVASTATIN 40 MG TAB PO SCH (21:58)
[2020-07-02] MEDS: SODIUM CHLORIDE 0.9% 1,000 ML IV SCH ×2 (05:44→17:46)
[2020-07-02 07:49] LABS: Basophils # (A) 0.1 k/uL (0-0.2); Basophils % (A) 1 %; Eosinophils # (A) 0.2 k/uL (0-0.7); Eosinophils % (A) 1 %; HCT 33.7 % (39.0-53.0); HGB 10.8 gm/dL (13.0-17.5); Hypochromasia Slight; Lymphocytes # (A) 1.4 k/uL (1.0-4.8); Lymphocytes % (A) 10 %; MCH 30.5 pg (25.0-35.0); MCHC 31.9 g/dL (31.0-37.0); MCV 95.6 fL (80.0-100.0); Mean Platelet Volume 11.9; Monocytes # (A) 0.7 k/uL (0-1.0); Monocytes % (A) 5 %; Neutrophils # (A) 11.7 k/uL (1.3-7.7); Neutrophils % (A) 82 %; Platelet Count 182 k/uL (150-450); RBC 3.53 m/uL (4.30-5.90); RDW 13.5 % (11.5-15.5); WBC 14.4 k/uL (3.8-10.6)
[2020-07-02] MEDS: ACETAMINOPHEN TAB 325 MG TAB PO PRN ×3 (07:50→20:40)
[2020-07-02] MEDS: levETIRAcetam 500 MG TAB PO SCH ×2 (07:51→20:40)
[2020-07-02] MEDS: lisinopriL 10 MG TAB PO SCH ×2 (07:51→20:41)
[2020-07-02] MEDS: TAMSULOSIN 0.4 MG CAP.ER.24H PO SCH (07:51)
[2020-07-02] MEDS: carvediloL 6.25 MG TAB PO SCH ×2 (07:51→17:46)
[2020-07-02] MEDS: PANTOPRAZOLE 40 MG/10 ML VIAL IV SCH (07:51)
[2020-07-02 08:07] LABS: African American GFR (CKD) >90 (>60 ml/min/1.73 sqM); Anion Gap 6 mmol/L; Blood Urea Nitrogen 10 mg/dL (9-20); Carbon Dioxide 25 mmol/L (22-30); Chloride 108 mmol/L (98-107); Glucose 95 mg/dL (74-99); Non-African American GFR(CKD) >90 (>60 ml/min/1.73 sqM); Potassium 3.7 mmol/L (3.5-5.1); Sodium 139 mmol/L (137-145)
[2020-07-02 09:17] LABS: Large Platelets Present
--- NOTE | 2020-07-02 15:42 | P.PN ---
Subjective Progress Note Date: 07/02/20 Principal diagnosis: Patient is a 64-year-old male who presents emergency room today for concerns for hematuria from Barrientos catheter output as well as a cough. Patient is here with his daughter who is his main caregiver. Patient was in well health up until 2 weeks ago when he became dizzy and fell down the stairs. Family does not know if a stroke causing him to fall down the stairs but Patient subsequently suffered from a intracranial hemorrhage. Was seen and treated at [facility] and did result in a partial left-sided craniotomy. Patient since that time has been minimal verbal communication. He was also on a ventilator for one week, And reportedly had a feeding tube and indwelling Barrientos catheter. During his hospital stay he had agitation episodes and pulled out his feeding tube and Barrientos catheter. That subsequently resulted in the Patient getting intermittent urinary straight cath's. And upon discharge from the hospital they did put an indwelling Barrientos catheter for the daughter to manage this care. After Patient was extubated Patient continued to improve and was discharged from our Hospital yesterday. They made an [address] from [facility] to their home and were attempting to have visiting nurses establish with his care. Patient did not have a visiting nurse as of today and the daughter's concern with the hematuria and productive cough sound that he needed to be brought to the hospital again for reevaluation. They recorded no sweating or fevers. Patient is mostly nonverbal but will respond occasionally with the daughter with one word answers. Patient didn't have any aneurysm and unsure whether patient had a spontaneous intracranial hemorrhage are secondary to trauma. Patient's disposition to subacute rehabitation was discussed with the family and family decided to take him home and patient was discharged home with home care. Family is unable to take care of him at all and noticed significant amount of clots in the Barrientos catheter and also purulent discharge from the site of insertion. Patient had urinalysis which was significantly abnormal with significantly elevated white blood cell count of RBC and leukocyte esterase. Patient was started on Rocephin. Barrientos catheter was removed but plan is to do straight catheterization today with frequent bladder scans. Patient did have agitation episodes of the other hospital. Patient was discharged yesterday. She was started on Flomax about 3 days ago, patient doesn't have any fever does have significant leukocytosis with white blood cell count going up to 20,000 07/01/2020 Patient is seen and evaluated and follow-up continues to have retention and an indwelling Barrientos catheter is being replaced. Patient continues to pull at IVs and is not alert and oriented at this time. Patient continues to have confusion and restlessness. Patient is currently being treated for urinary tract infection and awaiting for cultures to finalized. She is maintained on IV antibiotics in the form of ceftriaxone and will continue at this time while waiting for cultures. These management and social working on possible placement as family is unable to care for him in the home. PT/OT to evaluate the patient. Review of systems: Unable to obtain due to current clinical status. All medications have been reviewed. 07/02/2020 Patient is seen and evaluated and follow-up with family at the bedside. Social work working on placement at possible [facility] or the [facility] for continued neuro and PT/OT therapy. Family is now agreeable and willing to allow the patient to go to [facility] if authorization is required and accepted. White blood count trending down and is currently 14.4. Sodium is 139, potassium is 3.7, current creatinine is 0.49. Urine culture preliminary showing gram-negative bacilli and will await culture finalization. Patient continues with an indwelling Barrientos catheter and per nursing staff and family patient has not been pulling on the catheter today and much more awake and worked with physical therapy today. Patient continues on IV antibiotics in the form of ceftriaxone and will continue while waiting for cultures to finalized. Patient is afebrile. No reports noted of chest pain or shortness of breath. Objective - Vital Signs Vital signs: Vital Signs Temp 97.4 F L 07/02/20 07:00 Pulse 74 07/02/20 07:00 Resp 18 07/02/20 07:00 BP 167/77 07/02/20 07:00 Pulse Ox 97 07/02/20 07:00 Intake & Output 07/01/20 07/02/20 07/02/20 18:59 06:59 18:59 Output Total 900 1300 Balance -900 -1300 Output: Urine 900 1300 Other: Voiding Method Indwelling Catheter Indwelling Catheter Indwelling Catheter # Bowel Movements 1 - Exam GENERAL: Patient is nonverbal but appears to understand some. Resting comfortably, alert and oriented 01 HEENT: Pupils are round and equally reacting to light. EOMI. No scleral icterus. No conjunctival pallor. Normocephalic, patient has left scalp craniotomy scar. No pharyngeal erythema. No thyromegaly. CARDIOVASCULAR: S1 and S2 present. No murmurs, rubs, or gallops. PULMONARY: Chest is clear to auscultation, no wheezing or crackles. ABDOMEN: Soft, nontender, nondistended, normoactive bowel sounds. No palpable organomegaly. MUSCULOSKELETAL: No joint swelling or deformity. EXTREMITIES: No cyanosis, clubbing, or pedal edema. NEUROLOGICAL: Does have decreased strength in both lower extremities unable to clearly assess as patient doesn't follow commands very well SKIN: No rashes. - Labs CBC & Chem 7: 07/02/20 06:54 07/02/20 06:54 Labs: Abnormal Lab Results - Last 24 Hours (Table) 07/02/20 07/02/20 Range/Units 06:54 06:54 WBC 14.4 H (3.8-10.6) k/uL RBC 3.53 L (4.30-5.90) m/uL Hgb 10.8 L (13.0-17.5) gm/dL Hct 33.7 L (39.0-53.0) % Neutrophils # 11.7 H (1.3-7.7) k/uL Chloride 108 H (98-107) mmol/L Creatinine 0.49 L (0.66-1.25) mg/dL Microbiology - Last 24 Hours (Table) 06/30/20 13:06 Urine Culture - Preliminary Urine,Voided Gram Neg Bacilli 06/30/20 13:50 Blood Culture - Preliminary Blood No Growth after 24 hours Assessment and Plan Assessment: -Barrientos catheter related urinary tract infection and hematuria: Patient is maintained on IV ceftriaxone and will continue at this time while awaiting for cultures to finalized. Preliminary showing gram-negative bacilli. Patient continues to have retention and indwelling Barrientos catheter has been replaced -Recent intracranial hemorrhage, stroke secondary to that, patient was status post craniotomy was on ventilator support for long time and subsequently extubated. Patient is nonverbal will obtain PT and OT consultation will also obtain a [facility] consultation for possible inpatient rehabilitation placement patient was pretty functional before this event. PT/OT evaluated the patient and currently awaiting on possible [facility] admission or [facility] and [facility] as facilities are reviewing. -Hypertension -Mildly elevated liver enzymes nonspecific elevation, improving trending down. -Urinary retention secondary to stroke and intracranial hemorrhage will monitor as mentioned above, patient continues to retain and requiring indwelling Barrientos catheter replacement. -Coronary artery disease -Hyperlipidemia Plan: Continue current medications, management, and symptomatic treatment. PT/OT following. Social work also following and [facility]. Family is agreeable with this treatment plan. Patient is maintained on IV ceftriaxone and will continue at this time while awaiting for urine cultures. Per luminary showing gram-negative bacilli. Will continue to monitor closely and repeat a.m. labs. Case management and social work following as well working on possible placement. Further recommendations to follow.
[2020-07-02] MEDS: ATORVASTATIN 40 MG TAB PO SCH (20:41)
[2020-07-03] MEDS: SODIUM CHLORIDE 0.9% 1,000 ML IV SCH ×2 (07:02→16:05)
[2020-07-03] MEDS: lisinopriL 10 MG TAB PO SCH ×2 (08:09→21:28)
[2020-07-03] MEDS: TAMSULOSIN 0.4 MG CAP.ER.24H PO SCH (08:10)
[2020-07-03] MEDS: carvediloL 6.25 MG TAB PO SCH ×2 (08:10→16:05)
[2020-07-03] MEDS: PANTOPRAZOLE 40 MG/10 ML VIAL IV SCH (08:11)
[2020-07-03] MEDS: levETIRAcetam 500 MG TAB PO SCH ×2 (08:11→21:28)
[2020-07-03 10:08] LABS: Basophils # (A) 0.1 k/uL (0-0.2); Basophils % (A) 0 %; Eosinophils # (A) 0.1 k/uL (0-0.7); Eosinophils % (A) 1 %; HCT 34.1 % (39.0-53.0); HGB 10.9 gm/dL (13.0-17.5); Hypochromasia Slight; Lymphocytes # (A) 1.6 k/uL (1.0-4.8); Lymphocytes % (A) 13 %; MCH 30.2 pg (25.0-35.0); MCV 94.5 fL (80.0-100.0); Mean Platelet Volume 12.2; Monocytes # (A) 0.6 k/uL (0-1.0); Monocytes % (A) 5 %; Neutrophils # (A) 9.4 k/uL (1.3-7.7); Neutrophils % (A) 78 %; Platelet Count 186 k/uL (150-450); RBC 3.61 m/uL (4.30-5.90); RDW 13.6 % (11.5-15.5)
[2020-07-03 10:32] LABS: African American GFR (CKD) >90 (>60 ml/min/1.73 sqM); Anion Gap 6 mmol/L; Blood Urea Nitrogen 9 mg/dL (9-20); Calcium 9.3 mg/dL (8.4-10.2); Carbon Dioxide 27 mmol/L (22-30); Chloride 105 mmol/L (98-107); Glucose 115 mg/dL (74-99); Non-African American GFR(CKD) >90 (>60 ml/min/1.73 sqM); Potassium 3.6 mmol/L (3.5-5.1); Sodium 138 mmol/L (137-145)
[2020-07-03 10:52] LABS: Large Platelets Present
[2020-07-03] MEDS ORDERED: ONDANSETRON 4 MG TAB PO PRN (13:10)
--- NOTE | 2020-07-03 13:57 | P.PN ---
Subjective Progress Note Date: 07/03/20 Principal diagnosis: Patient is a 64-year-old male who presents emergency room today for concerns for hematuria from Barrientos catheter output as well as a cough. Patient is here with his daughter who is his main caregiver. Patient was in well health up until 2 weeks ago when he became dizzy and fell down the stairs. Family does not know if a stroke causing him to fall down the stairs but Patient subsequently suffered from a intracranial hemorrhage. Was seen and treated at [facility] and did result in a partial left-sided craniotomy. Patient since that time has been minimal verbal communication. He was also on a ventilator for one week, And reportedly had a feeding tube and indwelling Barrientos catheter. During his hospital stay he had agitation episodes and pulled out his feeding tube and Barrientos catheter. That subsequently resulted in the Patient getting intermittent urinary straight cath's. And upon discharge from the hospital they did put an indwelling Barrientos catheter for the daughter to manage this care. After Patient was extubated Patient continued to improve and was discharged from our Hospital yesterday. They made an [address] from [facility] to their home and were attempting to have visiting nurses establish with his care. Patient did not have a visiting nurse as of today and the daughter's concern with the hematuria and productive cough sound that he needed to be brought to the hospital again for reevaluation. They recorded no sweating or fevers. Patient is mostly nonverbal but will respond occasionally with the daughter with one word answers. Patient didn't have any aneurysm and unsure whether patient had a spontaneous intracranial hemorrhage are secondary to trauma. Patient's disposition to subacute rehabitation was discussed with the family and family decided to take him home and patient was discharged home with home care. Family is unable to take care of him at all and noticed significant amount of clots in the Barrientos catheter and also purulent discharge from the site of insertion. Patient had urinalysis which was significantly abnormal with significantly elevated white blood cell count of RBC and leukocyte esterase. Patient was started on Rocephin. Barrientos catheter was removed but plan is to do straight catheterization today with frequent bladder scans. Patient did have agitation episodes of the other hospital. Patient was discharged yesterday. She was started on Flomax about 3 days ago, patient doesn't have any fever does have significant leukocytosis with white blood cell count going up to 20,000 07/01/2020 Patient is seen and evaluated and follow-up continues to have retention and an indwelling Barrientos catheter is being replaced. Patient continues to pull at IVs and is not alert and oriented at this time. Patient continues to have confusion and restlessness. Patient is currently being treated for urinary tract infection and awaiting for cultures to finalized. She is maintained on IV antibiotics in the form of ceftriaxone and will continue at this time while waiting for cultures. These management and social working on possible placement as family is unable to care for him in the home. PT/OT to evaluate the patient. Review of systems: Unable to obtain due to current clinical status. All medications have been reviewed. 07/02/2020 Patient is seen and evaluated and follow-up with family at the bedside. Social work working on placement at possible [facility] or the [facility] for continued neuro and PT/OT therapy. Family is now agreeable and willing to allow the patient to go to [facility] if authorization is required and accepted. White blood count trending down and is currently 14.4. Sodium is 139, potassium is 3.7, current creatinine is 0.49. Urine culture preliminary showing gram-negative bacilli and will await culture finalization. Patient continues with an indwelling Barrientos catheter and per nursing staff and family patient has not been pulling on the catheter today and much more awake and worked with physical therapy today. Patient continues on IV antibiotics in the form of ceftriaxone and will continue while waiting for cultures to finalized. Patient is afebrile. No reports noted of chest pain or shortness of breath. 07/03/2020 Patient is seen in follow-up and continues to be monitor closely. Patient does have an indwelling Barrientos catheter which is draining clear yellow urine at this time. Patient's urine cultures finalized showing E. coli and will be started on Keflex 500 mg 3 times a day. Patient was receiving IV antibiotics in the form of ceftriaxone although patient has removed his IV and family requesting oral if possible. Patient recently underwent craniotomy on the left side for intracranial hemorrhage up in [place]. Family had taken him home to care for him although continued to have periods of confusion, anxiety, and restlessness and was brought to the hospital to evaluate for possible hematuria, urinary tra ct infection, and altered mental status. Currently case management and social work are following closely and attempting arrangements for [facility] or inpatient rehab. Patient has been working with physical therapy and tolerating. No reports of chest pain or shortness of breath noted. Patient remains afebrile. Patient is able to swallow pills and tolerate diet with feeding assistance. Review of systems: Unable to obtain due to current clinical status and patient is mostly nonverbal Active Medications Acetaminophen (Tylenol Tab) 650 mg PO Q6HR PRN PRN Reason: Mild Pain or Fever > 100.5 Last Admin: 07/02/20 20:40 Dose: 650 mg Documented by: Atorvastatin Calcium (Lipitor) [address] [facility] Last Admin: 07/02/20 20:41 Dose: 40 mg Documented by: Carvedilol (Coreg) 6.25 mg PO BID-W/MEALS [facility] Last Admin: 07/03/20 08:10 Dose: 6.25 mg Documented by: Cephalexin (Keflex) [address] [facility] Levetiracetam (Keppra) [address] [facility] Last Admin: 07/03/20 08:11 Dose: 500 mg Documented by: Lisinopril (Zestril) [address] [facility] Last Admin: 07/03/20 08:09 Dose: 10 mg Documented by: Naloxone HCl (Narcan) 0.2 mg IV Q2M PRN PRN Reason: Opioid Reversal Ondansetron HCl (Zofran) 4 mg PO Q8HR PRN PRN Reason: Nausea And Vomiting Pantoprazole Sodium (Protonix) 40 mg PO AC-BRKFST [facility] Quetiapine Fumarate (Seroquel) 25 mg PO HS PRN PRN Reason: Agitation Last Admin: 07/01/20 21:58 Dose: 25 mg Documented by: Tamsulosin HCl (Flomax) 0.[address] [facility] Last Admin: 07/03/20 08:10 Dose: 0.4 mg Documented by: Objective - Vital Signs Vital signs: Vital Signs Temp 98.2 F 07/03/20 08:10 Pulse 80 07/03/20 08:10 Resp 16 07/03/20 08:10 BP 181/90 07/03/20 08:10 Pulse Ox 97 07/03/20 08:10 Intake & Output 07/02/20 07/03/20 07/03/20 18:59 06:59 18:59 Intake Total 1600 Output Total 1000 1250 Balance -1000 350 Intake: Intake, IV Titration 1600 Amount Sodium Chloride 0.9% 1, 1600 000 ml @ 100 mls/hr IV . Q10H [facility] Rx#:[id number] Output: Urine 1000 1250 Other: Voiding Method Indwelling Catheter Indwelling Catheter Indwelling Catheter # Bowel Movements 1 1 - Exam GENERAL: Patient is nonverbal but appears to understand some. Resting comforta paige, alert and oriented 01. Temp is 98.2F, pulse is 80, respirations are 16, blood pressure is 181/90, oxygen saturation is 97% on room air. HEENT: Pupils are round and equally reacting to light. EOMI. No scleral icterus. No conjunctival pallor. Normocephalic, patient has left scalp craniotomy scar. No pharyngeal erythema. No thyromegaly. CARDIOVASCULAR: S1 and S2 present. No murmurs, rubs, or gallops. PULMONARY: Diminished breath sounds bilaterally with no wheezing or crackles. ABDOMEN: Soft, nontender, nondistended, normoactive bowel sounds. No palpable organomegaly. MUSCULOSKELETAL: No joint swelling or deformity. EXTREMITIES: No cyanosis, clubbing, or pedal edema. NEUROLOGICAL: Does have decreased strength in both lower extremities unable to clearly assess as patient doesn't follow commands very well SKIN: No rashes. - Labs CBC & Chem 7: 07/03/20 09:48 07/03/20 09:48 Labs: Abnormal Lab Results - Last 24 Hours (Table) 07/03/20 07/03/20 Range/Units 09:48 09:48 WBC 12.0 H (3.8-10.6) k/uL RBC 3.61 L (4.30-5.90) m/uL Hgb 10.9 L (13.0-17.5) gm/dL Hct 34.1 L (39.0-53.0) % Neutrophils # 9.4 H (1.3-7.7) k/uL Creatinine 0.47 L (0.66-1.25) mg/dL Glucose 115 H (74-99) mg/dL Microbiology - Last 24 Hours (Table) 06/30/20 13:06 Urine Culture - Final Urine,Voided Escherichia coli 06/30/20 13:50 Blood Culture - Preliminary Blood No Growth after 48 hours Assessment and Plan Assessment: -Barrientos catheter related urinary tract infection and hematuria -Recent intracranial hemorrhage, stroke secondary to that, patient was status post craniotomy was on ventilator support for long time and subsequently extubated. Patient is nonverbal -Hypertension -Acute metabolic encephalopathy most likely related to acute urinary tract infection -Mildly elevated liver enzymes nonspecific elevation, improving -Urinary retention secondary to stroke and intracranial hemorrhage -Coronary artery disease -Hyperlipidemia -GI prophylaxis Plan: Continue current medications, management, and symptomatic treatment. PT/OT following. Social work also following and working on possible [facility] inpatient rehab or [facility] for continued neuro rehab. Family is agreeable with this treatment plan. Urine cultures finalized showing E. coli and we'll transition to oral antibiotics in the form of Keflex 3 times daily as patient has no IV access at this time. Will continue to monitor closely and repeat a.m. labs. Case management and social work following as well working on possible placement. Further recommendations to follow.
[2020-07-03] MEDS: CEPHALEXIN 500 MG CAP PO SCH ×2 (16:04→21:28)
[2020-07-03] MEDS: ACETAMINOPHEN TAB 325 MG TAB PO PRN (16:04)
[2020-07-03 20:33] LABS: Glucose,Whole Blood 100 mg/dL (75-99)
[2020-07-03] MEDS: ATORVASTATIN 40 MG TAB PO SCH (21:28)
[2020-07-04 08:03] LABS: Basophils # (A) 0.1 k/uL (0-0.2); Basophils % (A) 1 %; Eosinophils # (A) 0.1 k/uL (0-0.7); Eosinophils % (A) 1 %; HCT 35.3 % (39.0-53.0); HGB 11.6 gm/dL (13.0-17.5); Lymphocytes % (A) 18 %; MCH 30.5 pg (25.0-35.0); MCHC 32.9 g/dL (31.0-37.0); MCV 92.7 fL (80.0-100.0); Mean Platelet Volume 12.1; Monocytes # (A) 0.7 k/uL (0-1.0); Monocytes % (A) 6 %; Neutrophils # (A) 7.8 k/uL (1.3-7.7); Neutrophils % (A) 72 %; Platelet Count 170 k/uL (150-450); RBC 3.81 m/uL (4.30-5.90); RDW 13.5 % (11.5-15.5); WBC 10.9 k/uL (3.8-10.6)
[2020-07-04 08:12] LABS: Large Platelets Present
[2020-07-04 08:30] LABS: African American GFR (CKD) >90 (>60 ml/min/1.73 sqM); Anion Gap 5 mmol/L; Blood Urea Nitrogen 10 mg/dL (9-20); Calcium 9.2 mg/dL (8.4-10.2); Carbon Dioxide 26 mmol/L (22-30); Chloride 105 mmol/L (98-107); Glucose 98 mg/dL (74-99); Non-African American GFR(CKD) >90 (>60 ml/min/1.73 sqM); Sodium 136 mmol/L (137-145)
[2020-07-04 08:47] LABS: Potassium 3.6 mmol/L (3.5-5.1)
[2020-07-04] MEDS: carvediloL 6.25 MG TAB PO SCH ×2 (09:09→17:21)
[2020-07-04] MEDS: lisinopriL 10 MG TAB PO SCH ×2 (09:10→20:17)
[2020-07-04] MEDS: CEPHALEXIN 500 MG CAP PO SCH ×3 (09:10→23:30)
[2020-07-04] MEDS: levETIRAcetam 500 MG TAB PO SCH ×2 (09:10→20:17)
[2020-07-04] MEDS: PANTOPRAZOLE 40 MG TABLET PO SCH (09:10)
[2020-07-04] MEDS: TAMSULOSIN 0.4 MG CAP.ER.24H PO SCH (09:10)
[2020-07-04] MEDS: ACETAMINOPHEN TAB 325 MG TAB PO PRN ×2 (15:32→23:35)
--- NOTE | 2020-07-04 18:47 | PN ---
PROGRESS NOTE DATE OF SERVICE: 07/04/2020 HISTORY OF PRESENT ILLNESS: This 64-year-old gentleman is being followed by Dr. Jac Ibrahim in outpatient setting. The patient apparently fell about 10 steps after fainting and subsequently patient with intracranial hemorrhage in [facility] where evacuation was done. The patient had craniotomy on the left side. The patient was sent home but apparently the home care changed the Barrientos catheter which resulted in hematuria and subsequently UTI related to Barrientos catheter. The patient admitted for further evaluation and treatment. Patient apparently was set to return to the neurosurgeon in [place] for drainage of abscess soon. The patient also had history of ITP as well. Currently the patient is nonverbal. During the recovery history the patient also had a right cerebellar stroke according to the daughter. The patient is closely monitored. Patient is confused and restless slightly. PAST MEDICAL HISTORY: Reviewed. REVIEW OF SYSTEMS: Could not be taken. CURRENT MEDICATIONS: Noted, include Tylenol, Lipitor, Coreg, Keflex, Keppra, Zestril, Narcan, Zofran, Protonix, Seroquel and Flomax. PHYSICAL EXAMINATION: Patient is conscious, nonverbal. Pulse is 89, blood pressure 119/80, respirations 18, temperature 98 degrees, pulse ox 98% on room air. HEENT: Conjunctivae normal. Oral mucosa moist. NECK: No jugular venous distention. No lymph node enlargement. CARDIOVASCULAR: Breath sounds diminished in the bases. Few rhonchi. No crackles. ABDOMEN: Soft. LEGS: No swelling. NERVOUS SYSTEM: Diffusely weak. Examination of the left skull significant skull defect present. LABS: WBC 10, hemoglobin 11, sodium 136. The urine culture showed E coli which is poly sensitive. ASSESSMENT: 1. Acute urinary tract infection with possible sepsis present on admission with UTI poly sensitive. 2. History of recent left craniotomy for evacuation of the left intracranial hematoma spontaneous. 3. History of recent right cerebellar stroke. 4. Change in mental status, metabolic encephalopathy. 5. History of ITP. 6. History of CAD. 7. History of CVA and TIA. 8. Hypertension. 9. Hyperlipidemia. 10.History of CAD stent. 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 12.Nicotine dependence. RECOMMENDATIONS AND DISCUSSION: In this 64-year-old gentleman who presented with multiple complex medical issues, we will monitor the patient closely, continue the current management and treatment. Otherwise at this time I recommend continue the antibiotics. Hold antiplatelet agents at this time. Otherwise, I would also recommend repeat CT scan of the brain to ensure stability. Otherwise we will continue to monitor. Cultures are as mentioned as mentioned earlier. We will we will repeat CBC, CMP. PT, OT evaluation, possible inpatient rehabilitation. Also recommend a neurology consultation. Flomax will be started on empiric basis. Further recommendations to follow. MMODL / IJN: [id number] /
--- NOTE | 2020-07-04 19:38 | CT ---
EXAMINATION TYPE: CT brain wo con DATE OF EXAM: 07/04/2020 COMPARISON: 07/27/2010 INDICATION: Recent craniotomy after cerebellar stroke x2 weeks ago. DLP: 1088.4 mGycm, Automated exposure control for dose reduction was used. CONTRAST: None CT of the brain is performed utilizing 3 mm thick sections through the posterior fossa and 3 mm thick sections through the remaining calvarium. Study is performed within 24 hours of arrival to the hosp ital. No abnormal hyperdensity is present to suggest an acute intracranial hemorrhage. There is a small lisa unt prominence of the left temporal left frontal extra-axial space with some low to intermediate sign al could be some residual subdural hematoma. Increased densities suggest acute subdural is not identi fied. There is some mild extra-axial low-density collection along the right frontal parietal region c ould be a small old subdural hematoma. Subdural hygroma should be considered. There appears to be a subacute right inferior cerebellar infarct. There is been a large craniotomy along the left frontal parietal region extending into the temporal r egion. No mass lesion is evident. No acute infarcts are evident. Hinojosa-white matter differentiation is preserved Ventricles and sulci are not enlarged for the patient age. Mild diffuse effacement may be present wh compared to 2009 Paranasal sinuses and mastoid air cells within the [id number] are clear. IMPRESSIONS: 1. Extra-axial collections along the left and right frontal parietal regions. Old subdural hematoma and subdural hygroma could be considered. The left frontal extra-axial region does have some slight increased density which could indicate underlying subacute to old subdural hematoma. 2. Overall there is mild diffuse mass effect on the brain with effacement of sulci and ventricles com pared to the old examination. No midline shift quadrigeminal plate and ambient cistern effacement is evident. 3. Craniotomy defect left temporal parietal region extending to the left frontal region. 4. Subacute right inferior lateral cerebellar infarct
[2020-07-04] MEDS: ATORVASTATIN 40 MG TAB PO SCH (20:17)
[2020-07-05] MEDS: levETIRAcetam 500 MG TAB PO SCH ×2 (08:02→20:30)
[2020-07-05] MEDS: PANTOPRAZOLE 40 MG TABLET PO SCH (08:02)
[2020-07-05] MEDS: carvediloL 6.25 MG TAB PO SCH ×2 (08:02→17:20)
[2020-07-05] MEDS: lisinopriL 10 MG TAB PO SCH ×2 (08:02→20:30)
[2020-07-05] MEDS: MULTIVITAMINS, THERA 1 EACH TAB PO SCH (08:03)
[2020-07-05] MEDS: CEPHALEXIN 500 MG CAP PO SCH ×3 (08:03→20:36)
[2020-07-05] MEDS: TAMSULOSIN 0.4 MG CAP.ER.24H PO SCH (08:08)
[2020-07-05] MEDS: ACETAMINOPHEN TAB 325 MG TAB PO PRN ×2 (09:01→17:19)
[2020-07-05 09:07] LABS: African American GFR (CKD) >90 (>60 ml/min/1.73 sqM); Anion Gap 7 mmol/L; Blood Urea Nitrogen 11 mg/dL (9-20); Calcium 9.6 mg/dL (8.4-10.2); Carbon Dioxide 28 mmol/L (22-30); Chloride 103 mmol/L (98-107); Glucose 92 mg/dL (74-99); Non-African American GFR(CKD) >90 (>60 ml/min/1.73 sqM); Potassium 3.8 mmol/L (3.5-5.1); Sodium 138 mmol/L (137-145)
[2020-07-05 09:18] LABS: Basophils # (A) 0.1 k/uL (0-0.2); Basophils % (A) 1 %; Eosinophils # (A) 0.1 k/uL (0-0.7); Eosinophils % (A) 1 %; HCT 37.2 % (39.0-53.0); HGB 11.9 gm/dL (13.0-17.5); Hypochromasia Slight; Lymphocytes % (A) 20 %; MCH 30.4 pg (25.0-35.0); MCHC 31.9 g/dL (31.0-37.0); MCV 95.3 fL (80.0-100.0); Mean Platelet Volume 12.1; Monocytes # (A) 0.5 k/uL (0-1.0); Monocytes % (A) 5 %; Neutrophils # (A) 6.9 k/uL (1.3-7.7); Neutrophils % (A) 70 %; Platelet Count 160 k/uL (150-450); RDW 13.6 % (11.5-15.5); WBC 9.8 k/uL (3.8-10.6)
[2020-07-05 10:30] LABS: Anisocytosis (M) Present; Large Platelets Present
[2020-07-05] MEDS: FOLIC ACID 1 MG TAB PO SCH (11:39)
[2020-07-05] MEDS: THIAMINE 100 MG TAB PO SCH (11:39)
[2020-07-05] MEDS: ATORVASTATIN 40 MG TAB PO SCH (20:30)
--- NOTE | 2020-07-06 00:04 | PN ---
PROGRESS NOTE DATE OF SERVICE: 07/05/2020 This 64-year-old gentleman being followed by Dr. Jac Ibrahim in the outpatient setting admitted with UTI. The patient also had recent left craniotomy. Patient was scheduled to have flap replaced with a neurosurgeon in July. According to the family in the [place], [place]. The patient remains to be confused at this time. Oriented only x1. A CT scan of the brain showed extra axial collections along the left and right frontal parietal regions and old subdural hematoma and subdural hygroma may be considered. The left frontal extra-axial region slight increased density and overall mild diffuse mass effect of the brain was also noted and no midline shift was appreciated. Craniotomy defect was noted. Subacute right inferior lateral cerebral infarct was also noted. PAST MEDICAL HISTORY: Reviewed. REVIEW OF SYSTEMS: Review of systems could not be taken because of change in mental status. MEDICATIONS: Current medications are reviewed and include Tylenol, Lipitor, Coreg, Keflex, folic acid, Keppra, Zestril, multivitamins, Narcan, Zofran, Protonix, Seroquel, vitamin B1. PHYSICAL EXAMINATION: Patient is confused. Oriented x1 only. Pulse 90, blood pressure 114/67, respirations 16, temperature 98.2, pulse ox 96% on room air. HEENT: Conjunctivae normal. NECK: No JVD. CARDIOVASCULAR: S1, S2 muffled. RESPIRATORY: Breath sounds diminished at the bases. A few scattered rhonchi. ABDOMEN: Soft. NERVOUS SYSTEM: Diffusely weak.skull defect present. LABS: WBC 9.8, hemoglobin 11.9. The cultures are showing E coli which is poly sensitive. ASSESSMENT: 1. Acute urinary tract infection with Escherichia coli with possible sepsis present on admission, which is poly sensitive. 2. History of recent left craniotomy for evacuation of left intracranial hematoma spontaneous. 3. History of recent right inferior cerebellar stroke. 4. Change in mental status, metabolic encephalopathy. 5. History of idiopathic thrombocytopenia purpura. 6. History of coronary artery disease. 7. History of cerebrovascular accident, transient ischemic attack. 8. Hypertension. 9. Hyperlipidemia. 10.History of coronary artery disease, stent. 11.History of methicillin-resistant Staphylococcus aureus. 12.History of nicotine dependence. RECOMMENDATIONS AND DISCUSSION: I recommend to continue current medications, continue with monitoring and symptomatic treatment. Otherwise continue the antibiotics. Otherwise also recommend a CAT scan to be re-evaluated by the patient's neurosurgeon. Neurology evaluation. Prognosis extremely guarded because of multiple complex medical issues and ECF rehab is a possibility but however the inpatient rehab is also being evaluated because the patient being also addressed at this time. Prognosis guarded because of multiple complex medical issues. Further recommendations to follow. consultation in progress. MMARTHURL / IJN: [id number] / MTDBrian
[2020-07-06] MEDS: ACETAMINOPHEN TAB 325 MG TAB PO PRN ×3 (08:18→21:53)
[2020-07-06] MEDS: lisinopriL 10 MG TAB PO SCH ×2 (08:20→21:53)
[2020-07-06] MEDS: carvediloL 6.25 MG TAB PO SCH ×2 (08:20→17:48)
[2020-07-06] MEDS: PANTOPRAZOLE 40 MG TABLET PO SCH (08:21)
[2020-07-06] MEDS: CEPHALEXIN 500 MG CAP PO SCH ×3 (08:23→21:53)
[2020-07-06] MEDS: TAMSULOSIN 0.4 MG CAP.ER.24H PO SCH (08:25)
[2020-07-06] MEDS: MULTIVITAMINS, THERA 1 EACH TAB PO SCH (08:27)
[2020-07-06] MEDS: levETIRAcetam 500 MG TAB PO SCH ×2 (08:32→21:52)
[2020-07-06] MEDS: FOLIC ACID 1 MG TAB PO SCH (12:46)
[2020-07-06] MEDS: THIAMINE 100 MG TAB PO SCH (12:46)
--- NOTE | 2020-07-06 12:57 | P.CNNES ---
History of Present Illness Consult date: 07/06/20 Requesting physician: Zohreh Frank Reason for Consult: history of left side craniotomy History of Present Illness: This is a 64-year-old gentleman with medical history of heavy alcohol use, Tobacco use, HTN, chronic CO and pacemaker that presented to the emergency department on 06/30/2020 for concern of hematuria from Barrientos catheter output as well as cough. Patient was in well health up until 2 weeks prior to present ation to [facility] where he going up the stair and fell down. He at Hotel with friend at [facility]. His daughters are not sure what happened but were told by EMS that he might have been light-headed per friend. He feel 10 steps down. Patient subsequently suffered from intracranial hemorrhage. It was not sure if he had a stroke that caused the fall. Patient doesn't have any aneurysm and unsure whether the patient had spontaneous intracranial hemorrhage are simply due to trauma. He was treated [facility] and the head left craniotomy. Patient's blood all call level was checked and was that 3 times more than normal limits. Since then the patient had been having minimal verbal communication. He was also during his hospitalization at outside hospital he was on ventilator for 1 week. As well as that he is the head the feeding tube and and well-formed catheter. During his hospital stay he had agitation episodes and pulled his feeding tube and Barrientos catheter. As a result the patient was getting intermittent urinary straight cath. Upon discharge from outside hospital, an indwelling Barrientos catheter was placed and the patient was extubated. The daughters said that patient did not have seizure at outside facility and was started on Keppra as prophylaxis 500mg bid. He does have a hard time communing but has been getting better on daily basis and daughter feel he has been stuborn and has been communicating more with his daughters than team members. The patient was discharged the day prior to [facility] ED presentation. Per the family members they're attempting to have visiting nurse established with his care. Family was unable to take him home since they noticed a significant amount of clot in the Barrientos catheter. Patient had urinary last analysis which was significant for abnormal significant elevated white blood cell count. Urine analysis the urine was read, appeared cloudy, nitrate was negative, leukocyte esterase was large, urine bacteria was occasional, urine wbc was more than 182. Patient was started on Rocephin. His Barrientos catheter was removed. Urine culture was positive for E. coli. She has been afebrile during his hospital stay here. Currently the patient is on Keflex for underlying UTI. Patient had CT of the head on 07/04/2020 which was reported as extra-axial collection along the left and right frontal parietal region. Old subdural hematoma and subdural hygroma can be considered. The left frontal extra-axial region doesn't does have some slight increased density which could indicate underlying subacute to old subdural hematoma. Overall there is mild diffuse mass effect on the brain with effacement of sulci and ventricles compared to the old examination. No midline shift quadrigeminal plate and ambient cistern effacement is evident. Craniotomy defect left temporal parietal region extending to the left frontal region. Subacute right inferior lateral cerebellar infarct. I personally reviewed it felt like there is bilateral subdural hematoma left more than the right and the patient does have a skull defect over the left and he did have hypodensity over the right cerebellar territory. Patient is on Keppra 500 mg twice a day as prophylaxis. The patient does not have any history of seizures. There is no family history of seizure. history the patient was a boring couple weeks premature but was vaginal delivery, no complication. Normal development. Per the patient's daughter the neurosurgery wanted the patient to be on Keppra for at least 6 months. They have his skull flap and and that they want to place it back to July so the daughters have to arrange an appointment with a with his neurosurgeon over at [place]. Per the patient's daughter the patient is not on any antiplatelets or anticoagulation. Review of Systems Review of system is unable to obtain from patient due to the current clinical status and the patient is mostly nonverbal blood pressure but was obtained from daughters and positives and negatives as per HPI. Past Medical History Past Medical History: Blood Disorder, Coronary Artery Disease (CAD), CVA/TIA, Hyperlipidemia, Hypertension Additional Past Medical History / Comment(s): Recent fall down stairs 2 weeks ago and had two brain bleeds. History of Any Multi-Drug Resistant Organisms: None Reported Past Surgical History: Back Surgery, Heart Catheterization With Stent, Orthopedic Surgery Additional Past Surgical History / Comment(s): right elbow, craniotomy Past Anesthesia/Blood Transfusion Reactions: No Reported Reaction Date of Last Stent Placement:: 2010 Past Psychological History: No Psychological Hx Reported Smoking Status: Former smoker Past Alcohol Use History: Occasional Additional Past Alcohol Use History / Comment(s): has smoked for about 50 yrs; cut down to 5 cigs a day Past Drug Use History: None Reported - Past Family History Sister(s) Family Medical History: Cancer Additional Family Medical History / Comment(s): lung breast Mother Family Medical History: Cancer Brother(s) Family Medical History: Cancer Additional Family Medical History / Comment(s): colon Medications and Allergies Home Medications Medication Instructions Recorded Confirmed Type Atorvastatin [Lipitor] 40 mg PO HS 06/01/18 06/30/20 History carvediloL [Coreg] 6.25 mg PO BID-W/MEALS 06/01/18 06/30/20 History lisinopriL [Zestril] 10 mg PO BID 06/01/18 06/30/20 History Tamsulosin HCl [Flomax] 0.4 mg PO DAILY 06/30/20 06/30/20 History levETIRAcetam [Keppra] 500 mg PO BID 06/30/20 06/30/20 History Allergies Allergy/AdvReac Type Severity Reaction Status Date / Time naproxen sodium [From Aleve] Allergy Rash/Hives Verified 06/30/20 15:14 latex AdvReac Rash/Hives Verified 06/30/20 15:37 Physical Examination - Vital Signs Vital Signs: Vital Signs Temp Pulse Resp BP BP Pulse Ox 07/06/20 02:28 98.1 F 77 17 139/84 96 07/05/20 19:02 97.8 F 84 16 143/82 95 07/05/20 15:58 16 07/05/20 15:00 98.2 F 90 16 114/67 96 07/05/20 08:25 16 Intake and Output 07/05/20 07/06/20 07/06/20 22:59 06:59 14:59 Intake Total 250 Output Total 925 850 Balance -840 -416 Intake: Oral 250 Output: Urine 925 850 Other: Voiding Method Indwelling Catheter GENERAL: The patient is lying in sitting on chair and is not in acute distress. HENT: No skull on the left side and has left side (frontal) is deviated in CHEST: The heart rate is regular rate rhythm. No murmurs to auscultation. LUNG: Clear to auscultation bilaterally no wheezing noted throughout. Not labored breathing. ABDOMEN/GI: Bowel sounds present in all 4 quadrants. No tenderness to palpation throughout. NEUROLOGICAL: Higher mental function: The patient is awake, alert, oriented to self and time. Patient followed on simple command (showing thumb up). Upon asking what I'm wearing a my wrist which was a watch he stated and he stated that time is 12:30 and kept on repeating it. Positive Broca aphasia. . Cranial nerves: The pupils are round, equal and reactive to light and accommodation. Visual gtz are full to threat throughout. Extraocular movement is intact no nystagmus is noted. Facial sensation is normal to touch throughout. The facial strength is normal throughout. Hearing is hard of hearing Tongue is midline and moved [id number] without any difficulty. No dysarthria is noted. Shoulder shrug is normal bilaterally. Motor: Gait is defered. The strength is moving all extremities above gravity and no focality noted. Normal tone and bulk. Cerebellum: Could not assess because of patient cooperation. Sensation: Sensation is normal to pinprick throughout. Reflexes (right/left): 2+ Plantars are downgoing bilaterally. Results PT of 10.6, INR 1.0, PTT is 23.1. AST of 43 ALTs of 77 - Laboratory Findings CBC and BMP: 07/05/20 07:44 07/05/20 07:44 Abnormal Lab Findings: Abnormal Labs 06/30/20 06/30/20 06/30/20 13:06 13:06 13:06 WBC 20.8 H RBC 3.81 L Hgb 11.5 L Hct 35.8 L Neutrophils # 17.4 H Sodium 135 L Chloride Carbon Dioxide 21 L Creatinine 0.48 L Glucose 108 H POC Glucose (mg/dL) AST 74 H ALT 93 H Total Protein Albumin Urine Protein 2+ H Urine Blood Large H Ur Leukocyte Esterase Large H Urine RBC >182 H Urine WBC >182 H Urine Bacteria Occasional H Urine Mucus Many H 07/01/20 07/01/20 07/02/20 08:54 08:54 06:54 WBC 19.9 H 14.4 H RBC 3.35 L 3.53 L Hgb 10.3 L 10.8 L Hct 31.7 L 33.7 L Neutrophils # 11.7 H Sodium 136 L Chloride Carbon Dioxide Creatinine 0.50 L Glucose 133 H POC Glucose (mg/dL) AST ALT 77 H Total Protein 5.7 L Albumin 3.0 L Urine Protein Urine Blood Ur Leukocyte Esterase Urine RBC Urine WBC Urine Bacteria Urine Mucus 07/02/20 07/03/20 07/03/20 06:54 09:48 09:48 WBC 12.0 H RBC 3.61 L Hgb 10.9 L Hct 34.1 L Neutrophils # 9.4 H Sodium Chloride 108 H Carbon Dioxide Creatinine 0.49 L 0.47 L Glucose 115 H POC Glucose (mg/dL) AST ALT Total Protein Albumin Urine Protein Urine Blood Ur Leukocyte Esterase Urine RBC Urine WBC Urine Bacteria Urine Mucus 07/03/20 07/04/20 07/04/20 20:09 07:19 07:19 WBC 10.9 H RBC 3.81 L Hgb 11.6 L Hct 35.3 L Neutrophils # 7.8 H Sodium 136 L Chloride Carbon Dioxide Creatinine 0.49 L Glucose POC Glucose (mg/dL) 100 H AST ALT Total Protein Albumin Urine Protein Urine Blood Ur Leukocyte Esterase Urine RBC Urine WBC Urine Bacteria Urine Mucus 07/05/20 07/05/20 07:44 07:44 WBC RBC 3.90 L Hgb 11.9 L Hct 37.2 L Neutrophils # Sodium Chloride Carbon Dioxide Creatinine 0.58 L Glucose POC Glucose (mg/dL) AST ALT Total Protein Albumin Urine Protein Urine Blood Ur Leukocyte Esterase Urine RBC Urine WBC Urine Bacteria Urine Mucus Assessment and Plan Assessment: This is a 64-year-old gentleman with medical history of heavy alcohol use, Tobacco use, HTN, chronic CO and pacemaker that presented to the emergency department on 06/30/2020 for concern of hematuria from Barrientos catheter output as well as cough. Patient was in well health up until 2 weeks prior to presentation to [facility] where he going up the stair and fell down 10 steps. He had bilateral subdural (left > right) with left craniotomy and right cerebellar stroke. Chronic Left subdural hematoma status post craniotomy. Chronic Right subdural hematoma Subacute right inferior lateral cerebellar infarct Broca aphasia from due #1 UTI Heavy alcohol use Tobacco use Plan: Patient was started on Keppra 500 mg twice a day at outside facility as a prophylaxis for seizure because of his significant bleed. Per the patient's daughters they stated that the PA and the neurosurgeon wanted the patient that to be on the medication for at least 6 months. From a neurology perspective there is no additional testing needed that. The patient needs to follow up with a neurologist in outpatient as well as neurosurgeon. The patient was counseled on all call cessation and tobacco use. Thank you for the consult. Geovani Greene M.D. Neuro-hospitalist Time with Patient: Greater than 30
[2020-07-06 13:12] LABS: Basophils # (A) 0.1 k/uL (0-0.2); Basophils % (A) 1 %; Eosinophils # (A) 0.1 k/uL (0-0.7); Eosinophils % (A) 1 %; Hypochromasia Slight; Lymphocytes % (A) 17 %; MCH 29.9 pg (25.0-35.0); MCHC 31.5 g/dL (31.0-37.0); MCV 94.9 fL (80.0-100.0); Mean Platelet Volume 12.7; Monocytes # (A) 0.6 k/uL (0-1.0); Monocytes % (A) 6 %; Neutrophils # (A) 8.6 k/uL (1.3-7.7); Neutrophils % (A) 74 %; Platelet Count 145 k/uL (150-450); RDW 13.9 % (11.5-15.5); WBC 11.7 k/uL (3.8-10.6)
[2020-07-06 13:15] LABS: African American GFR (CKD) >90 (>60 ml/min/1.73 sqM); Anion Gap 7 mmol/L; Blood Urea Nitrogen 11 mg/dL (9-20); Calcium 9.6 mg/dL (8.4-10.2); Carbon Dioxide 28 mmol/L (22-30); Chloride 103 mmol/L (98-107); Glucose 108 mg/dL (74-99); Non-African American GFR(CKD) >90 (>60 ml/min/1.73 sqM); Potassium 4.2 mmol/L (3.5-5.1); Sodium 138 mmol/L (137-145)
[2020-07-06 13:57] LABS: Large Platelets Present
--- NOTE | 2020-07-06 20:31 | P.PN ---
Subjective Progress Note Date: 07/06/20 Principal diagnosis: This is a 64 year old male who was recently admitted with acute urinary tract infection and altered mental status and is being closely monitored. Patient recently underwent craniotomy up in [place] after a fall down some stairs. Neurology evaluated the patient today recommending continuing the Keppra and follow up with neurosurgeon outpatient as previously discussed. Patient being followed by PT/OT and has been working with them with family at the bedside. Case management and social work following and awaiting [facility] in [place] to review the chart and updated notes from PT for possible placement. Patient is continued on oral Keflex for uti with cultures finalized showing ecoli. Patient continues to be confused although was able to name what city he was in and his name. Will continue to monitor closely. No reports of chest pain. Patient is afebrile. Swallow eval done and being advanced to dysphagia 3 chopped diet. Objective - Vital Signs Vital signs: Vital Signs Temp 97.9 F 07/06/20 15:00 Pulse 80 07/06/20 15:00 Resp 16 07/06/20 15:00 BP 127/67 07/06/20 15:00 Pulse Ox 95 07/06/20 15:00 Intake & Output 07/05/20 07/06/20 07/06/20 18:59 06:59 18:59 Intake Total 350 600 Output Total 550 1225 Balance -200 -1225 600 Intake: Oral 350 600 Output: Urine 550 1225 Other: Voiding Method Indwelling Catheter Indwelling Catheter # Voids 1 # Bowel Movements 1 - Exam GENERAL: Patient is awake, continues to be confused, alert and oriented 01. Temp is 98.1F, pulse is 82, respirations are 16, blood pressure is 132/77, oxygen saturation is 95% on room air. HEENT: Pupils are round and equally reacting to light. EOMI. No scleral icterus. No conjunctival pallor. Normocephalic, patient has left scalp craniotomy scar. No pharyngeal erythema. No thyromegaly. CARDIOVASCULAR: S1 and S2 present. No murmurs, rubs, or gallops. PULMONARY: Diminished breath sounds bilaterally with no wheezing or crackles. ABDOMEN: Soft, nontender, nondistended, normoactive bowel sounds. No palpable organomegaly. MUSCULOSKELETAL: No joint swelling or deformity. EXTREMITIES: No cyanosis, clubbing, or pedal edema. NEUROLOGICAL: alert and oriented x1. diffusely weak SKIN: No rashes. - Labs CBC & Chem 7: 07/06/20 12:45 07/06/20 12:45 Labs: Abnormal Lab Results - Last 24 Hours (Table) 07/06/20 07/06/20 Range/Units 12:45 12:45 WBC 11.7 H (3.8-10.6) k/uL RBC 4.00 L (4.30-5.90) m/uL Hgb 12.0 L (13.0-17.5) gm/dL Hct 38.0 L (39.0-53.0) % Plt Count 145 L (150-450) k/uL Neutrophils # 8.6 H (1.3-7.7) k/uL Creatinine 0.59 L (0.66-1.25) mg/dL Glucose 108 H (74-99) mg/dL Microbiology - Last 24 Hours (Table) 06/30/20 13:50 Blood Culture - Preliminary Blood No Growth after 120 hours Assessment and Plan Assessment: -Acute urinary tract infection and hematuria with E coli with possible sepsis, present on admission, which is poly-sensitive -History of recent intracranial hemorrhage, stroke secondary to that, patient was status post craniotomy evacuation of left intracranial hematoma spontaneous -History of recent right inferior cerebellar stroke -change is mental status, metabolic encephalopathy -Hypertension -Acute metabolic encephalopathy most likely related to acute urinary tract infection -Mildly elevated liver enzymes nonspecific elevation, improving -Urinary retention secondary to stroke and intracranial hemorrhage -History of Coronary artery disease, stent -History of MRSA -History of nicotine dependence -Hyperlipidemia -GI prophylaxis -Full code Plan: Continue current medications, management, and symptomatic treatment. PT/OT following. Neurology evaluated the patient recommending outpatient follow up with neurosurgeon. Social work also following and working on possible inpatient rehab at [facility] in [place] for continued neuro rehab. Family is agreeable with this treatment plan. Will continue to monitor closely and repeat a.m. labs. Case management and social work following as well working on possible placement. Further recommendations to follow. Possible discharge in 24-48 hours.
[2020-07-06] MEDS: ATORVASTATIN 40 MG TAB PO SCH (21:53)
[2020-07-07 08:21] LABS: African American GFR (CKD) >90 (>60 ml/min/1.73 sqM); Anion Gap 6 mmol/L; Blood Urea Nitrogen 11 mg/dL (9-20); Calcium 9.6 mg/dL (8.4-10.2); Carbon Dioxide 27 mmol/L (22-30); Chloride 104 mmol/L (98-107); Glucose 96 mg/dL (74-99); Non-African American GFR(CKD) >90 (>60 ml/min/1.73 sqM); Potassium 4.1 mmol/L (3.5-5.1); Sodium 137 mmol/L (137-145)
[2020-07-07 08:22] LABS: HCT 38.6 % (39.0-53.0); HGB 12.3 gm/dL (13.0-17.5); Hypochromasia Slight; MCH 30.1 pg (25.0-35.0); MCHC 31.8 g/dL (31.0-37.0); MCV 94.5 fL (80.0-100.0); Mean Platelet Volume 12.3; Platelet Count 116 k/uL (150-450); RBC 4.08 m/uL (4.30-5.90); RDW 13.9 % (11.5-15.5); WBC 11.2 k/uL (3.8-10.6)
[2020-07-07] MEDS: THIAMINE 100 MG TAB PO SCH (08:46)
[2020-07-07] MEDS: FOLIC ACID 1 MG TAB PO SCH (08:46)
[2020-07-07] MEDS: PANTOPRAZOLE 40 MG TABLET PO SCH (08:46)
[2020-07-07] MEDS: lisinopriL 10 MG TAB PO SCH ×2 (08:46→22:43)
[2020-07-07] MEDS: levETIRAcetam 500 MG TAB PO SCH ×2 (08:46→22:43)
[2020-07-07] MEDS: carvediloL 6.25 MG TAB PO SCH ×2 (08:46→17:16)
[2020-07-07] MEDS: TAMSULOSIN 0.4 MG CAP.ER.24H PO SCH (08:46)
[2020-07-07] MEDS: MULTIVITAMINS, THERA 1 EACH TAB PO SCH (08:46)
[2020-07-07] MEDS: CEPHALEXIN 500 MG CAP PO SCH ×3 (08:47→22:43)
[2020-07-07 10:00] LABS: Eosinophils # (M) 0.22 k/uL (0-0.7); Lymphocytes # (M) 2.24 k/uL (1.0-4.8); Metamyelocytes # (M) 0.11 k/uL (0); Metamyelocytes % 1 %; Myelocytes # (M) 0.11 k/uL (0); Myelocytes % 1 %; Neutrophils # (M) 7.84 k/uL (1.3-7.7); Neutrophils % (M) 70 %; Nucleated Red Blood Cells 0 /100 WBC (0-0); Total Cells Counted 200
[2020-07-07 10:01] LABS: Poikilocytosis (M) Present
--- NOTE | 2020-07-07 14:48 | P.PN ---
Subjective Progress Note Date: 07/07/20 Principal diagnosis: This is a 64 year old male who was recently admitted with acute urinary tract infection and altered mental status and is being closely monitored. Patient recently underwent craniotomy up in [place] after a fall down some stairs. Neurology evaluated the patient today recommending continuing the Keppra and follow up with neurosurgeon outpatient as previously discussed. Patient being followed by PT/OT and has been working with them with family at the bedside. Case management and social work following and awaiting [facility] facility in [place] to review the chart and updated notes from PT for possible placement. Patient is continued on oral Keflex for uti with cultures finalized showing ecoli. Patient continues to be confused although was able to name what city he was in and his name. Will continue to monitor closely. No reports of chest pain. Patient is afebrile. Swallow eval done and being advanced to dysphagia 3 chopped diet. 07/07/2020 Patient is seen and evaluated and follow-up and currently remains on oral Keflex and will continue. Patient's urinary tract infection cultures finalized showing E. coli which is pansensitive. Family members at the bedside awaiting for possible placement at [facility] in [place] for continued PT/OT therapy. Case ma cora and social work following and awaiting review at critical access hospital for possible admission. Patient will have Covid testing which is currently pending at this time. White blood count trending down at 11.2, hemoglobin is stable at 12.3, current sodium is 137, and potassium is 4.1. Will continue to monitor closely. PT/OT following and working with the patient daily. Discussed with case management and social work about the possibility of alternative placement if [facility] does not accept. Objective - Vital Signs Vital signs: Vital Signs Temp 97.7 F 07/07/20 07:30 Pulse 72 07/07/20 08:00 Resp 14 07/07/20 08:00 BP 128/75 07/07/20 07:30 Pulse Ox 94 L 07/07/20 02:31 Intake & Output 07/06/20 07/07/20 07/07/20 18:59 06:59 18:59 Intake Total 600 Output Total 400 850 Balance 200 -850 Intake: Oral 600 Output: Urine 400 850 Other: Voiding Method Indwelling Catheter Indwelling Catheter Indwelling Catheter - Exam GENERAL: Patient is awake, continues to be confused, alert and oriented 01. Temp is 97.7F, pulse is 72, respirations are 14, blood pressure is 128/75, oxygen saturation is 94% on room air. HEENT: Pupils are round and equally reacting to light. EOMI. No scleral icterus. No conjunctival pallor. Normocephalic, patient has left scalp craniotomy scar. No pharyngeal erythema. No thyromegaly. CARDIOVASCULAR: S1 and S2 present. No murmurs, rubs, or gallops. PULMONARY: Diminished breath sounds bilaterally with no wheezing or crackles. ABDOMEN: Soft, nontender, nondistended, normoactive bowel sounds. No palpable organomegaly. MUSCULOSKELETAL: No joint swelling or deformity. EXTREMITIES: No cyanosis, clubbing, or pedal edema. NEUROLOGICAL: alert and oriented x1. diffusely weak SKIN: No rashes. - Labs CBC & Chem 7: 07/07/20 07:44 07/07/20 07:44 Labs: Abnormal Lab Results - Last 24 Hours (Table) 07/07/20 07/07/20 Range/Units 07:44 07:44 WBC 11.2 H (3.8-10.6) k/uL RBC 4.08 L (4.30-5.90) m/uL Hgb 12.3 L (13.0-17.5) gm/dL Hct 38.6 L (39.0-53.0) % Plt Count 116 L (150-450) k/uL Neutrophils # (Manual) 7.84 H (1.3-7.7) k/uL Metamyelocytes # (Man) 0.11 H (0) k/uL Myelocytes # (Manual) 0.11 H (0) k/uL Creatinine 0.53 L (0.66-1.25) mg/dL Microbiology - Last 24 Hours (Table) 06/30/20 13:50 Blood Culture - Final Blood No Growth after 144 hours Assessment and Plan Assessment: -Acute urinary tract infection and hematuria with E coli with possible sepsis, present on admission, which is poly-sensitive -History of recent intracranial hemorrhage, stroke secondary to that, patient was status post craniotomy evacuation of left intracranial hematoma spontaneous -History of recent right inferior cerebellar stroke -change is mental status, metabolic encephalopathy -Hypertension -Acute metabolic encephalopathy most likely related to acute urinary tract infection -Mildly elevated liver enzymes nonspecific elevation, improving -Urinary retention secondary to stroke and intracranial hemorrhage -History of Coronary artery disease, stent -History of MRSA -History of nicotine dependence -Hyperlipidemia -GI prophylaxis -Full code Plan: Continue current medications, management, and symptomatic treatment. PT/OT following. Social work also following and working on possible inpatient rehab a t [facility] in [place] for continued neuro rehab. Discussed with social work about possible alternative placement if [facility] is not able to accommodate. Family is agreeable with this treatment plan. Will continue to monitor closely. Covid 19 testing is currently pending at this time. Further recommendations to follow. Possible discharge in 24-48 hours.
[2020-07-07] MEDS: ACETAMINOPHEN TAB 325 MG TAB PO PRN (15:40)
[2020-07-07] MEDS: ATORVASTATIN 40 MG TAB PO SCH (22:43)
[2020-07-08 06:51] LABS: Glucose,Whole Blood 114 mg/dL (75-99)
--- NOTE | 2020-07-08 07:18 | P.PN ---
Progress Note - Text This is in respoonse to a query from [facility]: I have reviewed therapy notes and believe that patient can tolerate 3 hours therapy per, a full IPR program.
[2020-07-08] MEDS: carvediloL 6.25 MG TAB PO SCH ×2 (07:55→16:56)
[2020-07-08] MEDS: PANTOPRAZOLE 40 MG TABLET PO SCH (07:55)
[2020-07-08] MEDS: levETIRAcetam 500 MG TAB PO SCH ×2 (08:39→20:43)
[2020-07-08] MEDS: lisinopriL 10 MG TAB PO SCH ×2 (08:39→20:44)
[2020-07-08] MEDS: CEPHALEXIN 500 MG CAP PO SCH ×3 (08:39→20:44)
[2020-07-08] MEDS: TAMSULOSIN 0.4 MG CAP.ER.24H PO SCH (08:39)
[2020-07-08] MEDS: ACETAMINOPHEN TAB 325 MG TAB PO PRN (10:42)
[2020-07-08] MEDS: THIAMINE 100 MG TAB PO SCH (13:07)
[2020-07-08] MEDS: MULTIVITAMINS, THERA 1 EACH TAB PO SCH (13:07)
[2020-07-08] MEDS: FOLIC ACID 1 MG TAB PO SCH (13:07)
--- NOTE | 2020-07-08 16:28 | P.PN ---
Subjective Progress Note Date: 07/08/20 Principal diagnosis: This is a 64 year old male who was recently admitted with acute urinary tract infection and altered mental status and is being closely monitored. Patient recently underwent craniotomy up in [place] after a fall down some stairs. Neurology evaluated the patient today recommending continuing the Keppra and follow up with neurosurgeon outpatient as previously discussed. Patient being followed by PT/OT and has been working with them with family at the bedside. Case management and social work following and awaiting [facility] facility in [place] to review the chart and updated notes from PT for possible placement. Patient is continued on oral Keflex for uti with cultures finalized showing ecoli. Patient continues to be confused although was able to name what city he was in and his name. Will continue to monitor closely. No reports of chest pain. Patient is afebrile. Swallow eval done and being advanced to dysphagia 3 chopped diet. 07/07/2020 Patient is seen and evaluated and follow-up and currently remains on oral Keflex and will continue. Patient's urinary tract infection cultures finalized showing E. coli which is pansensitive. Family members at the bedside awaiting for possible placement at [facility] in [place] for continued PT/OT therapy. Case ma cora and social work following and awaiting Dr. rodriguez at [facility] for possible admission. Patient will have Covid testing which is currently pending at this time. White blood count trending down at 11.2, hemoglobin is stable at 12.3, current sodium is 137, and potassium is 4.1. Will continue to monitor closely. PT/OT following and working with the patient daily. Discussed with case management and social work about the possibility of alternative placement if [facility] does not accept. 07/08/2020 Patient is seen in follow-up with no acute overnight issues. Patient remains on oral Keflex and will continue for urine cultures finalizing showing E. coli. Patient continues to work with PT/OT. [facility] has reviewed the chart and is willing to accept the patient and are currently working on prior authorization through his insurance. Patient had Covid 19 testing which was negative. Social work following closely and working on discharge planning needs and transfer to the rehab facility once authorization is obtained. Discussed with the family at the bedside and they are agreeable with this treatment plan. Will continue to monitor closely. Objective - Vital Signs Vital signs: Vital Signs Temp 98.2 F 07/08/20 07:02 Pulse 81 07/08/20 07:02 Resp 16 07/08/20 07:02 BP 129/73 07/08/20 07:02 Pulse Ox 93 L 07/07/20 19:28 Intake & Output 07/07/20 07/08/20 07/08/20 18:59 06:59 18:59 Output Total 550 500 Balance -550 -500 Output: Urine 550 500 Other: Voiding Method Indwelling Catheter Indwelling Catheter Indwelling Catheter # Bowel Movements 1 1 - Exam GENERAL: Patient is awake, continues to be confused, alert and oriented 01. HEENT: Pupils are round and equally reacting to light. EOMI. No scleral icterus. No conjunctival pallor. Normocephalic, patient has left scalp craniotomy scar. No pharyngeal erythema. No thyromegaly. CARDIOVASCULAR: S1 and S2 present. No murmurs, rubs, or gallops. PULMONARY: Diminished breath sounds bilaterally with no wheezing or crackles. ABDOMEN: Soft, nontender, nondistended, normoactive bowel sounds. No palpable organomegaly. MUSCULOSKELETAL: No joint swelling or deformity. EXTREMITIES: No cyanosis, clubbing, or pedal edema. NEUROLOGICAL: alert and oriented x1. diffusely weak SKIN: No rashes. - Labs CBC & Chem 7: 07/07/20 07:44 07/07/20 07:44 Labs: Abnormal Lab Results - Last 24 Hours (Table) 07/08/20 Range/Units 06:48 POC Glucose (mg/dL) 114 H (75-99) mg/dL Assessment and Plan Assessment: -Acute urinary tract infection and hematuria with E coli with possible sepsis, present on admission, most likely due to Barrientos catheter -History of recent intracranial hemorrhage, stroke secondary to that, patient was status post craniotomy evacuation of left intracranial hematoma spontaneous -History of recent right inferior cerebellar stroke -change is mental status, metabolic encephalopathy -Hypertension -Acute metabolic encephalopathy most likely related to acute urinary tract infection -Mildly elevated liver enzymes nonspecific elevation, improving -Urinary retention secondary to stroke and intracranial hemorrhage -History of Coronary artery disease, stent -History of MRSA -History of nicotine dependence -Hyperlipidemia -GI prophylaxis -Full code Plan: Continue current medications, management, and symptomatic treatment. PT/OT following. Social work also following and working on possible inpatient rehab at [facility] for continued neuro rehab. [facility] has accepted the patient and now currently waiting for insurance authorization which is pending at this time. Family is agreeable with this treatment plan. Will continue to monitor closely. Covid 19 testing was negative. Further recommendations to follow. Possible discharge in 24-48 hours.
[2020-07-08] MEDS: ATORVASTATIN 40 MG TAB PO SCH (20:43)
[2020-07-08] MEDS: MELATONIN 3 MG TABLET PO SCH (20:44)
--- NOTE | 2020-07-08 20:51 | P.GSCN ---
History of Present Illness Consult date: 07/08/20 Reason for Consult: urinary retention History of present illness: Patient is a 64-year-old male with hx of intracranial hemorrhage he is S/P partial left-sided craniotomy at [facility]. He presented to the ED with concern of hematuria from Franco catheter output as well as a cough. He devloped urinary retention post intracranial hemorrhage and failed TOV in [facility]. He was subsequently switched to CIC, but at time of discharge franco due to him been discharged home and his mental status. Patient is poor historian, but no known hx of urinary retention Review of Systems ROS unobtainable: due to mental status Past Medical History Past Medical History: Blood Disorder, Coronary Artery Disease (CAD), CVA/TIA, Hyperlipidemia, Hypertension Additional Past Medical History / Comment(s): Recent fall down stairs 2 weeks ago and had two brain bleeds. History of Any Multi-Drug Resistant Organisms: None Reported Past Surgical History: Back Surgery, Heart Catheterization With Stent, Orthopedic Surgery Additional Past Surgical History / Comment(s): right elbow, craniotomy Past Anesthesia/Blood Transfusion Reactions: No Reported Reaction Date of Last Stent Placement:: 2010 Past Psychological History: No Psychological Hx Reported Smoking Status: Former smoker Past Alcohol Use History: Occasional Additional Past Alcohol Use History / Comment(s): has smoked for about 50 yrs; cut down to 5 cigs a day Past Drug Use History: None Reported - Past Family History Sister(s) Family Medical History: Cancer Additional Family Medical History / Comment(s): lung breast Mother Family Medical History: Cancer Brother(s) Family Medical History: Cancer Additional Family Medical History / Comment(s): colon Medications and Allergies Home Medications Medication Instructions Recorded Confirmed Type Atorvastatin [Lipitor] 40 mg PO HS 06/01/18 06/30/20 History carvediloL [Coreg] 6.25 mg PO BID-W/MEALS 06/01/18 06/30/20 History lisinopriL [Zestril] 10 mg PO BID 06/01/18 06/30/20 History Tamsulosin HCl [Flomax] 0.4 mg PO DAILY 06/30/20 06/30/20 History levETIRAcetam [Keppra] 500 mg PO BID 06/30/20 06/30/20 History Acetaminophen Tab [Tylenol] 650 mg PO Q6HR PRN tab 07/08/20 Rx Cephalexin [Keflex] 500 mg PO TID 3 Days #9 cap 07/08/20 Rx Folic Acid 1 mg PO DAILY@1200 tab 07/08/20 Rx Multivitamins, Thera [Multivitamin 1 each PO DAILY@1200 tab 07/08/20 Rx (formulary)] Ondansetron [Zofran] 4 mg PO Q8HR PRN tab 07/08/20 Rx Pantoprazole [Protonix] 40 mg PO AC-[id number] tablet. 07/08/20 Rx Thiamine [Vitamin B-1] 100 mg PO DAILY@1200 tab 07/08/20 Rx Allergies Allergy/AdvReac Type Severity Reaction Status Date / Time naproxen sodium [From Aleve] Allergy Rash/Hives Verified 06/30/20 15:14 latex AdvReac Rash/Hives Verified 06/30/20 15:37 Surgical - Exam Vital Signs Temp Pulse Resp BP Pulse Ox 97.8 F 80 18 149/75 95 06/30/20 12:15 06/30/20 12:15 06/30/20 12:15 06/30/20 12:15 06/30/20 12:15 - General no distress - Respiratory normal expansion, normal respiratory effort - Abdomen Abdomen: soft, non tender - Psychiatric other (alert ) Results - Labs 07/07/20 07:44 07/07/20 07:44 Abnormal Lab Results - Last 24 Hours (Table) 07/08/20 Range/Units 06:48 POC Glucose (mg/dL) 114 H (75-99) mg/dL Assessment and Plan Assessment: 64 yo male with hx of urinary retention following intracranical hemorrhage. His mental status is slightly improved since admission but not close to baseline. He has failed TOV at [facility], initially was started on CIC, but switched to franco due patient been discharged home and not been able to do CIC. Plan: -Keep franco in place, can have TOV once mental status improves -continue flomax -Can f/u as an outpatient in 2 weeks
[2020-07-09] MEDS: CEPHALEXIN 500 MG CAP PO SCH ×3 (08:29→21:50)
[2020-07-09] MEDS: TAMSULOSIN 0.4 MG CAP.ER.24H PO SCH (08:29)
[2020-07-09] MEDS: lisinopriL 10 MG TAB PO SCH ×2 (08:30→21:51)
[2020-07-09] MEDS: PANTOPRAZOLE 40 MG TABLET PO SCH (08:30)
[2020-07-09] MEDS: levETIRAcetam 500 MG TAB PO SCH ×2 (08:30→21:51)
[2020-07-09] MEDS: carvediloL 6.25 MG TAB PO SCH ×2 (08:30→16:45)
[2020-07-09] MEDS: ACETAMINOPHEN TAB 325 MG TAB PO PRN (10:42)
[2020-07-09] MEDS: THIAMINE 100 MG TAB PO SCH (11:45)
[2020-07-09] MEDS: MULTIVITAMINS, THERA 1 EACH TAB PO SCH (11:45)
[2020-07-09] MEDS: FOLIC ACID 1 MG TAB PO SCH (11:45)
--- NOTE | 2020-07-09 12:48 | P.PN ---
Subjective Progress Note Date: 07/09/20 Principal diagnosis: This is a 64 year old male who was recently admitted with acute urinary tract infection and altered mental status and is being closely monitored. Patient recently underwent craniotomy up in [place] after a fall down some stairs. Neurology evaluated the patient today recommending continuing the Keppra and follow up with neurosurgeon outpatient as previously discussed. Patient being followed by PT/OT and has been working with them with family at the bedside. Case management and social work following and awaiting [facility] facility in [place] to review the chart and updated notes from PT for possible placement. Patient is continued on oral Keflex for uti with cultures finalized showing ecoli. Patient continues to be confused although was able to name what city he was in and his name. Will continue to monitor closely. No reports of chest pain. Patient is afebrile. Swallow eval done and being advanced to dysphagia 3 chopped diet. 07/07/2020 Patient is seen and evaluated and follow-up and currently remains on oral Keflex and will continue. Patient's urinary tract infection cultures finalized showing E. coli which is pansensitive. Family members at the bedside awaiting for possible placement at [facility] in [place] for continued PT/OT therapy. Case christiana shepherd and social work following and awaiting Dr. rodriguez at [facility] for possible admission. Patient will have Covid testing which is currently pending at this time. White blood count trending down at 11.2, hemoglobin is stable at 12.3, current sodium is 137, and potassium is 4.1. Will continue to monitor closely. PT/OT following and working with the patient daily. Discussed with case management and social work about the possibility of alternative placement if [facility] does not accept. 07/08/2020 Patient is seen in follow-up with no acute overnight issues. Patient remains on oral Keflex and will continue for urine cultures finalizing showing E. coli. Patient continues to work with PT/OT. [facility] has reviewed the chart and is willing to accept the patient and are currently working on prior authorization through his insurance. Patient had Covid 19 testing which was negative. Social work following closely and working on discharge planning needs and transfer to the rehab facility once authorization is obtained. Discussed with the family at the bedside and they are agreeable with this treatment plan. Will continue to monitor closely. 07/09/2020 Patient is seen and evaluated and follow-up with family at the bedside. Family continues to request if [facility] will be able to accept the patient in the inpatient rehab as it is closer to them for visits and [facility] has refused at this time. Social work still working closely with [facility] as they have accepted the patient and continuing to wait for authorization through insurance at this time. Patient is currently maintained on oral Keflex and will continue to complete the course. Patient was seen and evaluated by urology recommending continuing the indwelling Barrientos catheter due to retention and will follow-up in the outpatient setting once more neurologically stable for possible Barrientos catheter removal with voiding trial. Patient is to continue on Flomax at this time. Patient has remained afebrile with no reports of chest pain or shortness of breath noted. Vital signs stable. Will continue to monitor closely. Objective - Vital Signs Vital signs: Vital Signs Temp 98.7 F 07/09/20 07:00 Pulse 95 07/09/20 08:00 Resp 16 07/09/20 08:00 BP 107/71 07/09/20 09:09 Pulse Ox 94 L 07/09/20 07:00 Intake & Output 07/08/20 07/09/20 07/09/20 18:59 06:59 18:59 Output Total 500 450 Balance -500 -450 Output: Urine 500 450 Other: Voiding Method Indwelling Catheter Indwelling Catheter Indwelling Catheter # Bowel Movements 1 - Exam GENERAL: Patient is awake, continues to be confused, alert and oriented 01. HEENT: Pupils are round and equally reacting to light. EOMI. No scleral icterus. No conjunctival pallor. Normocephalic, patient has left scalp craniotomy scar. No pharyngeal erythema. No thyromegaly. CARDIOVASCULAR: S1 and S2 present. No murmurs, rubs, or gallops. PULMONARY: Diminished breath sounds bilaterally with no wheezing or crackles. ABDOMEN: Soft, nontender, nondistended, normoactive bowel sounds. No palpable organomegaly. MUSCULOSKELETAL: No joint swelling or deformity. EXTREMITIES: No cyanosis, clubbing, or pedal edema. NEUROLOGICAL: alert and oriented x1. diffusely weak SKIN: No rashes. - Labs CBC & Chem 7: 07/07/20 07:44 07/07/20 07:44 Assessment and Plan Assessment: -Acute urinary tract infection and hematuria with E coli with possible sepsis, present on admission, most likely due to Barrientos catheter -History of recent intracranial hemorrhage, stroke secondary to that, patient was status post craniotomy evacuation of left intracranial hematoma spontaneous -History of recent right inferior cerebellar stroke -Covid 19 ruled out, testing was negative -change is mental status, metabolic encephalopathy -Hypertension -Acute metabolic encephalopathy most likely related to acute urinary tract infection -Mildly elevated liver enzymes nonspecific elevation, improving -Urinary retention secondary to stroke and intracranial hemorrhage -History of Coronary artery disease, stent -History of MRSA -History of nicotine dependence -Hyperlipidemia -GI prophylaxis -Full code Plan: Continue current medications, management, and symptomatic treatment. PT/OT following. Social work also following and working on possible inpatient rehab at [facility] in [place] for continued neuro rehab. [facility] has accepted the patient and now currently waiting for insurance authorization which is pending at this time. Family is agreeable with this treatment plan. Will continue to monitor closely. Covid 19 testing was negative. Further recommendations to follow. Possible discharge in 24 hours.
[2020-07-09 13:39] VITALS: BMI 35.9
[2020-07-09] MEDS: MELATONIN 3 MG TABLET PO SCH (21:50)
[2020-07-09] MEDS: ATORVASTATIN 40 MG TAB PO SCH (21:51)
[2020-07-10] MEDS: carvediloL 6.25 MG TAB PO SCH ×2 (07:34→16:56)
[2020-07-10] MEDS: PANTOPRAZOLE 40 MG TABLET PO SCH (07:34)
[2020-07-10] MEDS: TAMSULOSIN 0.4 MG CAP.ER.24H PO SCH (07:34)
[2020-07-10] MEDS: lisinopriL 10 MG TAB PO SCH ×2 (07:34→20:22)
[2020-07-10] MEDS: CEPHALEXIN 500 MG CAP PO SCH ×3 (07:34→20:22)
[2020-07-10] MEDS: levETIRAcetam 500 MG TAB PO SCH ×2 (07:35→20:22)
[2020-07-10] MEDS: MULTIVITAMINS, THERA 1 EACH TAB PO SCH (10:33)
[2020-07-10] MEDS: THIAMINE 100 MG TAB PO SCH (10:33)
[2020-07-10] MEDS: FOLIC ACID 1 MG TAB PO SCH (10:33)
[2020-07-10] MEDS: cycloSPORINE 0.05% OPHTH 0.4 ML DROPERETTE BOTH EYES SCH ×2 (10:35→20:22)
[2020-07-10] MEDS: POLYMYXIN B-TRIMETHOPRIM SULF (10,000-1) OPHTH DROPS 10 ML BTL BOTH EYES SCH ×3 (12:00→20:21)
[2020-07-10] MEDS: ACETAMINOPHEN TAB 325 MG TAB PO PRN (14:28)
--- NOTE | 2020-07-10 16:06 | P.PN ---
Subjective Progress Note Date: 07/10/20 Principal diagnosis: This is a 64 year old male who was recently admitted with acute urinary tract infection and altered mental status and is being closely monitored. Patient recently underwent craniotomy up in [place] after a fall down some stairs. Neurology evaluated the patient today recommending continuing the Keppra and follow up with neurosurgeon outpatient as previously discussed. Patient being followed by PT/OT and has been working with them with family at the bedside. Case management and social work following and awaiting [facility] facility in [place] to review the chart and updated notes from PT for possible placement. Patient is continued on oral Keflex for uti with cultures finalized showing ecoli. Patient continues to be confused although was able to name what city he was in and his name. Will continue to monitor closely. No reports of chest pain. Patient is afebrile. Swallow eval done and being advanced to dysphagia 3 chopped diet. 07/07/2020 Patient is seen and evaluated and follow-up and currently remains on oral Keflex and will continue. Patient's urinary tract infection cultures finalized showing E. coli which is pansensitive. Family members at the bedside awaiting for possible placement at [facility] in [place] for continued PT/OT therapy. Case christiana shepherd and social work following and awaiting Dr. rodriguez at [facility] for possible admission. Patient will have Covid testing which is currently pending at this time. White blood count trending down at 11.2, hemoglobin is stable at 12.3, current sodium is 137, and potassium is 4.1. Will continue to monitor closely. PT/OT following and working with the patient daily. Discussed with case management and social work about the possibility of alternative placement if [facility] does not accept. 07/08/2020 Patient is seen in follow-up with no acute overnight issues. Patient remains on oral Keflex and will continue for urine cultures finalizing showing E. coli. Patient continues to work with PT/OT. [facility] has reviewed the chart and is willing to accept the patient and are currently working on prior authorization through his insurance. Patient had Covid 19 testing which was negative. Social work following closely and working on discharge planning needs and transfer to the rehab facility once authorization is obtained. Discussed with the family at the bedside and they are agreeable with this treatment plan. Will continue to monitor closely. 07/09/2020 Patient is seen and evaluated and follow-up with family at the bedside. Family continues to request if [facility] will be able to accept the patient in the inpatient rehab as it is closer to them for visits and [facility] has refused at this time. Social work still working closely with [facility] as they have accepted the patient and continuing to wait for authorization through insurance at this time. Patient is currently maintained on oral Keflex and will continue to complete the course. Patient was seen and evaluated by urology recommending continuing the indwelling Barrientos catheter due to retention and will follow-up in the outpatient setting once more neurologically stable for possible Barrientos catheter removal with voiding trial. Patient is to continue on Flomax at this time. Patient has remained afebrile with no reports of chest pain or shortness of breath noted. Vital signs stable. Will continue to monitor closely. 07/10/2020 Patient is seen in follow-up with both daughters at the bedside. Awaiting on [facility] prior authorization through his insurance. After discussing the case with social work and also providing [facility] with multiple updates of clinical status, labs, vital signs there is now no bed available at [facility] today. Given the holiday will likely not receive authorization until early next week. This was discussed and relayed to the family. Patient is currently maintained on oral antibiotics in the form of Keflex and will continue at this time. To continue with indwelling Barrientos catheter. Patient is having some left eye redness and irritation and itchiness and eyedrops were ordered. Continue to monitor clos chinedu. Patient continues to work with PT/OT therapy and will continue at this time. Objective - Vital Signs Vital signs: Vital Signs Temp 97.6 F 07/10/20 15:25 Pulse 74 07/10/20 15:25 Resp 15 07/10/20 15:25 BP 128/72 07/10/20 15:25 Pulse Ox 96 07/10/20 15:25 Intake & Output 07/09/20 07/10/20 07/10/20 18:59 06:59 18:59 Intake Total 50 Output Total 500 550 Balance -500 -500 Weight 113.398 kg Intake: Oral 50 Output: Urine 500 550 Other: Voiding Method Indwelling Catheter Indwelling Catheter Indwelling Catheter # Voids 2 - Exam GENERAL: Patient is awake, continues to be confused, alert and oriented -2. HEENT: Pupils are round and equally reacting to light. EOMI. No scleral icterus. No conjunctival pallor. Normocephalic, patient has left scalp craniotomy scar. No pharyngeal erythema. No thyromegaly. Left eye redness and surrounding irritation noted with some mild drainage noted. CARDIOVASCULAR: S1 and S2 present. No murmurs, rubs, or gallops. PULMONARY: Diminished breath sounds bilaterally with no wheezing or crackles. ABDOMEN: Soft, nontender, nondistended, normoactive bowel sounds. No palpable organomegaly. MUSCULOSKELETAL: No joint swelling or deformity. EXTREMITIES: No cyanosis, clubbing, or pedal edema. NEUROLOGICAL: alert and oriented x1. diffusely weak SKIN: No rashes. - Labs CBC & Chem 7: 07/07/20 07:44 07/07/20 07:44 Assessment and Plan Assessment: -Acute urinary tract infection and hematuria with E coli with possible sepsis, present on admission, most likely due to Barrientos catheter -Acute left eye conjunctivitis -History of recent intracranial hemorrhage, stroke secondary to that, patient was status post craniotomy evacuation of left intracranial hematoma spontaneous -History of recent right inferior cerebellar stroke -Covid 19 ruled out, testing was negative -change is mental status, metabolic encephalopathy -Hypertension -Acute metabolic encephalopathy most likely related to acute urinary tract infection -Mildly elevated liver enzymes nonspecific elevation, improving -Urinary retention secondary to stroke and intracranial hemorrhage -History of Coronary artery disease, stent -History of MRSA -History of nicotine dependence -Hyperlipidemia -GI prophylaxis -Full code Plan: Continue current medications, management, and symptomatic treatment. PT/OT following. Social work also following and working on possible inpatient rehab at [facility] in [place] for continued neuro rehab. [facility] has accepted the patient and now currently waiting for insurance authorization which is pending at this time. [facility] has also notified social work there is no current bed available until possibly next week. Will rediscuss with social work about possible alternative placements. Family is agreeable with this treatment plan. Will continue to monitor closely. Covid 19 testing was negative. Further recommendations to follow.
[2020-07-10] MEDS: ATORVASTATIN 40 MG TAB PO SCH (20:22)
[2020-07-10] MEDS: MELATONIN 3 MG TABLET PO SCH (20:22)
[2020-07-11] MEDS: POLYMYXIN B-TRIMETHOPRIM SULF (10,000-1) OPHTH DROPS 10 ML BTL BOTH EYES SCH ×7 (02:32→23:42)
[2020-07-11 07:57] LABS: African American GFR (CKD) >90 (>60 ml/min/1.73 sqM); Anion Gap 7 mmol/L; Blood Urea Nitrogen 13 mg/dL (9-20); Calcium 9.6 mg/dL (8.4-10.2); Carbon Dioxide 27 mmol/L (22-30); Chloride 103 mmol/L (98-107); Glucose 87 mg/dL (74-99); Non-African American GFR(CKD) >90 (>60 ml/min/1.73 sqM); Potassium 4.2 mmol/L (3.5-5.1); Sodium 137 mmol/L (137-145)
[2020-07-11] MEDS: PANTOPRAZOLE 40 MG TABLET PO SCH (08:01)
[2020-07-11] MEDS: TAMSULOSIN 0.4 MG CAP.ER.24H PO SCH (08:01)
[2020-07-11] MEDS: carvediloL 6.25 MG TAB PO SCH ×2 (08:01→17:39)
[2020-07-11] MEDS: cycloSPORINE 0.05% OPHTH 0.4 ML DROPERETTE BOTH EYES SCH ×2 (08:01→21:11)
[2020-07-11] MEDS: CEPHALEXIN 500 MG CAP PO SCH ×3 (08:01→21:10)
[2020-07-11] MEDS: lisinopriL 10 MG TAB PO SCH ×2 (08:01→21:11)
[2020-07-11] MEDS: levETIRAcetam 500 MG TAB PO SCH ×2 (08:02→21:10)
[2020-07-11 08:18] LABS: Basophils % (A) 0 %; Eosinophils # (A) 0.2 k/uL (0-0.7); Eosinophils % (A) 2 %; HCT 36.9 % (39.0-53.0); HGB 11.8 gm/dL (13.0-17.5); Lymphocytes # (A) 2.8 k/uL (1.0-4.8); Lymphocytes % (A) 28 %; MCH 30.2 pg (25.0-35.0); MCHC 31.9 g/dL (31.0-37.0); MCV 94.7 fL (80.0-100.0); Mean Platelet Volume 15.4; Monocytes # (A) 0.6 k/uL (0-1.0); Monocytes % (A) 6 %; Neutrophils % (A) 61 %; RBC 3.89 m/uL (4.30-5.90); RDW 14.1 % (11.5-15.5); WBC 9.8 k/uL (3.8-10.6)
[2020-07-11 09:11] LABS: Large Platelets Present; Platelet Count 45 k/uL (150-450)
[2020-07-11] MEDS: FOLIC ACID 1 MG TAB PO SCH (12:33)
[2020-07-11] MEDS: MULTIVITAMINS, THERA 1 EACH TAB PO SCH (12:33)
[2020-07-11] MEDS: THIAMINE 100 MG TAB PO SCH (12:33)
[2020-07-11] MEDS: ACETAMINOPHEN TAB 325 MG TAB PO PRN (12:38)
[2020-07-11] MEDS: ATORVASTATIN 40 MG TAB PO SCH (21:10)
[2020-07-11] MEDS: MELATONIN 3 MG TABLET PO SCH (21:10)
[2020-07-12] MEDS: POLYMYXIN B-TRIMETHOPRIM SULF (10,000-1) OPHTH DROPS 10 ML BTL BOTH EYES SCH ×2 (05:17→08:02)
[2020-07-12 07:45] LABS: Basophils # (A) 0.1 k/uL (0-0.2); Basophils % (A) 1 %; Eosinophils # (A) 0.2 k/uL (0-0.7); Eosinophils % (A) 2 %; HGB 12.5 gm/dL (13.0-17.5); Lymphocytes # (A) 2.6 k/uL (1.0-4.8); Lymphocytes % (A) 27 %; MCH 30.3 pg (25.0-35.0); MCV 94.5 fL (80.0-100.0); Mean Platelet Volume 15.6; Monocytes # (A) 0.6 k/uL (0-1.0); Monocytes % (A) 6 %; Neutrophils # (A) 6.1 k/uL (1.3-7.7); Neutrophils % (A) 63 %; RBC 4.13 m/uL (4.30-5.90); RDW 14.1 % (11.5-15.5); WBC 9.8 k/uL (3.8-10.6)
[2020-07-12 07:55] LABS: African American GFR (CKD) >90 (>60 ml/min/1.73 sqM); Anion Gap 7 mmol/L; Blood Urea Nitrogen 11 mg/dL (9-20); Calcium 9.7 mg/dL (8.4-10.2); Carbon Dioxide 26 mmol/L (22-30); Chloride 104 mmol/L (98-107); Glucose 99 mg/dL (74-99); Non-African American GFR(CKD) >90 (>60 ml/min/1.73 sqM); Potassium 4.1 mmol/L (3.5-5.1); Sodium 137 mmol/L (137-145)
[2020-07-12] MEDS: levETIRAcetam 500 MG TAB PO SCH ×2 (08:02→22:10)
[2020-07-12] MEDS: cycloSPORINE 0.05% OPHTH 0.4 ML DROPERETTE BOTH EYES SCH ×2 (08:02→22:11)
[2020-07-12] MEDS: TAMSULOSIN 0.4 MG CAP.ER.24H PO SCH (08:05)
[2020-07-12] MEDS: carvediloL 6.25 MG TAB PO SCH ×2 (08:05→15:41)
[2020-07-12] MEDS: CEPHALEXIN 500 MG CAP PO SCH ×3 (08:05→22:10)
[2020-07-12] MEDS: PANTOPRAZOLE 40 MG TABLET PO SCH (08:05)
[2020-07-12] MEDS: lisinopriL 10 MG TAB PO SCH ×2 (08:05→22:10)
[2020-07-12 08:08] LABS: Platelet Count 37 k/uL (150-450)
[2020-07-12] MEDS: ACETAMINOPHEN TAB 325 MG TAB PO PRN ×3 (08:14→22:09)
[2020-07-12 09:06] LABS: Large Platelets Present
[2020-07-12] MEDS: FOLIC ACID 1 MG TAB PO SCH (11:53)
[2020-07-12] MEDS: CIPROFLOXACIN 0.3% OPHTH SOLN 5 ML BTL BOTH EYES SCH ×3 (11:53→22:09)
[2020-07-12] MEDS: THIAMINE 100 MG TAB PO SCH (11:53)
[2020-07-12] MEDS: MULTIVITAMINS, THERA 1 EACH TAB PO SCH (11:53)
--- NOTE | 2020-07-12 12:33 | P.PN ---
Subjective Progress Note Date: 07/11/20 64 year old male who was recently admitted with acute urinary tract infection and altered mental status and is being closely monitored. Patient recently underwent craniotomy up in [place] after a fall down some stairs. Neurology evaluated the patient today recommending continuing the Keppra and follow up with neurosurgeon outpatient as previously discussed. Patient being followed by PT/OT and has been working with them with family at the bedside. Case management and social work following and awaiting [facility] in [place] to review the chart and updated notes from PT for possible placement. Patient is continued on oral Keflex for uti with cultures finalized showing ecoli. Patient continues to be confused although was able to name what city he was in and his name. Will continue to monitor closely. No reports of chest pain. Patient is afebrile. Swallow eval done and being advanced to dysphagia 3 chopped diet. 07/11/2020 Patient is seen and evaluated with family members at bedside; family members claimed that they are disappointed because patient lost his bed in [facility] due to delay in insurance authorization, and plan to take patient home if there is no opening by Monday Vital signs are reviewed and stable; lab review shows a white blood count of 9.8, hemoglobin 11.8 and platelet count of 45 which is significant trend down from 116 on 07/07/2020; we will monitor CBC closely and consult hematology if platelet count continues to drop; patient remains on cyclosporine eyedrops for bilateral conjunctivitis; antibiotics has been switched to oral in form of Kefle x 500 mg 3 times a day for completing treatment for UTI Case management/RESIDENT ADVISOR to follow patient tomorrow for further recommendations on discharge planning Objective - Vital Signs Vital signs: Vital Signs Temp 98 F 07/11/20 07:03 Pulse 74 07/11/20 07:03 Resp 17 07/11/20 07:03 BP 117/76 07/11/20 07:03 Pulse Ox 96 07/11/20 07:03 Intake & Output 07/10/20 07/11/20 07/11/20 18:59 06:59 18:59 Output Total 700 Balance -700 Output: Urine 700 Other: Voiding Method Indwelling Catheter Indwelling Catheter Indwelling Catheter # Voids 2 # Bowel Movements 1 - Exam GENERAL: Patient is awake, continues to be confused, alert and oriented 2. HEENT: Pupils are round and equally reacting to light. EOMI. No scleral icterus. No conjunctival pallor. Normocephalic, patient has left scalp craniotomy scar. No pharyngeal erythema. No thyromegaly. Left eye redness and surrounding irritation noted with some mild drainage noted. CARDIOVASCULAR: S1 and S2 present. No murmurs, rubs, or gallops. PULMONARY: Diminished breath sounds bilaterally with no wheezing or crackles. ABDOMEN: Soft, nontender, nondistended, normoactive bowel sounds. No palpable organomegaly. MUSCULOSKELETAL: No joint swelling or deformity. EXTREMITIES: No cyanosis, clubbing, or pedal edema. NEUROLOGICAL: alert and oriented x1. diffusely weak - Labs CBC & Chem 7: 07/12/20 07:26 07/12/20 07:26 Labs: Abnormal Lab Results - Last 24 Hours (Table) 07/11/20 Range/Units 06:53 RBC 3.89 L (4.30-5.90) m/uL Hgb 11.8 L (13.0-17.5) gm/dL Hct 36.9 L (39.0-53.0) % Plt Count 45 L D (150-450) k/uL Assessment and Plan Assessment: -Acute urinary tract infection and hematuria with E coli with possible sepsis, present on admission, most likely due to Barrientos catheter -Acute left eye conjunctivitis -History of recent intracranial hemorrhage, stroke secondary to that, patient was status post craniotomy evacuation of left intracranial hematoma spontaneous -History of recent right inferior cerebellar stroke -Covid 19 ruled out, testing was negative -change is mental status, metabolic encephalopathy -Hypertension -Acute metabolic encephalopathy most likely related to acute urinary tract infection -Mildly elevated liver enzymes nonspecific elevation, improving -Urinary retention secondary to stroke and intracranial hemorrhage -History of Coronary artery disease, stent -History of MRSA -History of nicotine dependence -Hyperlipidemia -GI prophylaxis -Full code Plan: Continue current medications, management, and symptomatic treatment. PT/OT following. Social work also following and working on possible inpatient rehab at [facility] in [place] for continued neuro rehab. [facility] has accepted the patient and now currently waiting for insurance authorization which is pending at this time. [facility] has also notified social work there is no current bed available until possibly next week. Will rediscuss with social work about possible alternative placements. Family is agreeable with this treatment plan. Will continue to monitor closely. Covid 19 testing was negative. Further recommendations to follow.
--- NOTE | 2020-07-12 17:46 | P.PN ---
Subjective Progress Note Date: 07/12/20 64 year old male who was recently admitted with acute urinary tract infection and altered mental status and is being closely monitored. Patient recently underwent craniotomy up in [place] after a fall down some stairs. Neurology evaluated the patient today recommending continuing the Keppra and follow up with neurosurgeon outpatient as previously discussed. Patient being followed by PT/OT and has been working with them with family at the bedside. Case management and social work following and awaiting [facility] in [place] to review the chart and updated notes from PT for possible placement. Patient is continued on oral Keflex for uti with cultures finalized showing ecoli. Patient continues to be confused although was able to name what city he was in and his name. Will continue to monitor closely. No reports of chest pain. Patient is afebrile. Swallow eval done and being advanced to dysphagia 3 chopped diet. 07/11/2020 Patient is seen and evaluated with family members at bedside; family members claimed that they are disappointed because patient lost his bed in [facility] due to delay in insurance authorization, and plan to take patient home if there is no opening by Monday Vital signs are reviewed and stable; lab review shows a white blood count of 9.8, hemoglobin 11.8 and platelet count of 45 which is significant trend down from 116 on 07/07/2020; we will monitor CBC closely and consult hematology if platelet count continues to drop; patient remains on cyclosporine eyedrops for bilateral conjunctivitis; antibiotics has been switched to oral in form of Kefle x 500 mg 3 times a day for completing treatment for UTI Case management/ANODE MACHINE OPERATOR to follow patient tomorrow for further recommendations on discharge planning 07/12/2020 Patient is seen resting comfortably in the recliner; daughter is at bedside; reports improvement in itching and redness of both eyes; patient remains on cyclosporine eyedrops; labs are discussed with patient's daughter with platelet count continues to drop down to 37; according to daughter which 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 and sees hematology as outpatient; we will consult hematology to see patient while in the hospital Stable for discharge when arrangements are made Objective - Vital Signs Vital signs: Vital Signs Temp 98 F 07/12/20 07:01 Pulse 90 07/12/20 07:01 Resp 17 07/12/20 07:01 BP 108/73 09/06/20 07:01 Pulse Ox 97 07/12/20 07:01 Intake & Output 07/11/20 07/12/20 07/12/20 18:59 06:59 18:59 Output Total 600 1225 Balance -600 -1225 Output: Urine 600 1225 Other: Voiding Method Indwelling Catheter Indwelling Catheter Indwelling Catheter - Exam GENERAL: Patient is awake, continues to be confused, alert and oriented 01-2. HEENT: Pupils are round and equally reacting to light. EOMI. No scleral icterus. No conjunctival pallor. Normocephalic, patient has left scalp craniotomy scar. No pharyngeal erythema. No thyromegaly. Left eye redness and surrounding irritation noted with some mild drainage noted. CARDIOVASCULAR: S1 and S2 present. No murmurs, rubs, or gallops. PULMONARY: Diminished breath sounds bilaterally with no wheezing or crackles. ABDOMEN: Soft, nontender, nondistended, normoactive bowel sounds. No palpable o rganomegaly. MUSCULOSKELETAL: No joint swelling or deformity. EXTREMITIES: No cyanosis, clubbing, or pedal edema. NEUROLOGICAL: alert and oriented x1. diffusely weak - Labs CBC & Chem 7: 07/12/20 07:26 07/12/20 07:26 Labs: Abnormal Lab Results - Last 24 Hours (Table) 07/12/20 07/12/20 Range/Units 07:26 07:26 RBC 4.13 L (4.30-5.90) m/uL Hgb 12.5 L (13.0-17.5) gm/dL Plt Count 37 L (150-450) k/uL Creatinine 0.62 L (0.66-1.25) mg/dL Assessment and Plan Assessment: -Acute urinary tract infection and hematuria with E coli with possible sepsis, present on admission, most likely due to Barrientos catheter -Acute left eye conjunctivitis -History of recent intracranial hemorrhage, stroke secondary to that, patient was status post craniotomy evacuation of left intracranial hematoma spontaneous -History of recent right inferior cerebellar stroke -Covid 19 ruled out, testing was negative -change is mental status, metabolic encephalopathy -Hypertension -Acute metabolic encephalopathy most likely related to acute urinary tract infection -Mildly elevated liver enzymes nonspecific elevation, improving -Urinary retention secondary to stroke and intracranial hemorrhage -History of Coronary artery disease, stent -History of MRSA -History of nicotine dependence -Hyperlipidemia -GI prophylaxis -Full code Plan: Continue current medications, management, and symptomatic treatment. PT/OT following. Social work also following and working on possible inpatient rehab at [facility] in [place] for continued neuro rehab. [facility] has accepted the patient and now currently waiting for insurance authorization which is pending at this time. [facility] has also notified social work there is no current bed available until possibly next week. Will rediscuss with social work about possible alternative placements. Family is agreeable with this treatment plan. Will continue to monitor closely. Covid 19 testing was negative. Further recommendations to follow.
[2020-07-12] MEDS: MELATONIN 3 MG TABLET PO SCH (22:09)
[2020-07-12] MEDS: ATORVASTATIN 40 MG TAB PO SCH (22:12)
[2020-07-13] MEDS: CIPROFLOXACIN 0.3% OPHTH SOLN 5 ML BTL BOTH EYES SCH ×7 (00:40→23:13)
[2020-07-13] MEDS: cycloSPORINE 0.05% OPHTH 0.4 ML DROPERETTE BOTH EYES SCH ×2 (08:02→19:58)
[2020-07-13] MEDS: levETIRAcetam 500 MG TAB PO SCH ×2 (08:02→19:58)
[2020-07-13] MEDS: PANTOPRAZOLE 40 MG TABLET PO SCH (08:02)
[2020-07-13] MEDS: carvediloL 6.25 MG TAB PO SCH ×2 (08:02→17:03)
[2020-07-13] MEDS: TAMSULOSIN 0.4 MG CAP.ER.24H PO SCH (08:02)
[2020-07-13] MEDS: CEPHALEXIN 500 MG CAP PO SCH ×3 (08:03→19:59)
[2020-07-13] MEDS: lisinopriL 10 MG TAB PO SCH ×2 (08:03→19:58)
[2020-07-13 08:37] LABS: Basophils # (A) 0.1 k/uL (0-0.2); Basophils % (A) 1 %; Eosinophils # (A) 0.2 k/uL (0-0.7); Eosinophils % (A) 2 %; HCT 43.8 % (39.0-53.0); HGB 13.9 gm/dL (13.0-17.5); Hypochromasia Slight; Lymphocytes # (A) 3.4 k/uL (1.0-4.8); Lymphocytes % (A) 28 %; MCH 30.8 pg (25.0-35.0); MCHC 31.8 g/dL (31.0-37.0); Mean Platelet Volume 16.2; Monocytes # (A) 0.7 k/uL (0-1.0); Monocytes % (A) 6 %; Neutrophils # (A) 7.3 k/uL (1.3-7.7); Neutrophils % (A) 61 %; RBC 4.51 m/uL (4.30-5.90)
[2020-07-13 08:40] LABS: African American GFR (CKD) >90 (>60 ml/min/1.73 sqM); Anion Gap 10 mmol/L; Blood Urea Nitrogen 11 mg/dL (9-20); Carbon Dioxide 22 mmol/L (22-30); Chloride 105 mmol/L (98-107); Glucose 98 mg/dL (74-99); Non-African American GFR(CKD) >90 (>60 ml/min/1.73 sqM); Potassium 4.4 mmol/L (3.5-5.1); Sodium 137 mmol/L (137-145)
[2020-07-13 08:42] LABS: Platelet Count 35 k/uL (150-450)
[2020-07-13] MEDS ORDERED: predniSONE 20 MG TAB PO STA (11:24)
--- NOTE | 2020-07-13 12:05 | P.CONS ---
History of Present Illness - Reason for Consult Consult date: 07/13/20 Thrombocythemia, history of ITP - History of Present Illness The patient is a 64-year-old white male well known to our service. He was diagnosed with ITP at least 6 years ago and has followed with Dr. Thurman since. He is on cyclosporine for maintenance with fairly infrequent exacerbations The patient's recent medical and surgical history has been quite completed. He suffered a fall while visiting [facility] in [place] on 06/16/20. He developed intracranial hemorrhage, and underwent craniotomy with drainage. He was subsequently intubated for about a week and wasn't able to be extubated. He was discharged from the hospital and came back down on 06/29/20. However he was brought to the ER by his daughter as he was having a productive cough and was also noted to have hematuria in his indwelling Barrientos. Platelet count admission was normal at 245. Since then it has different down gradually, to 37 yesterday. Consult was therefore placed a further evaluation and determinations The patient has had no obvious bleeding. Hematuria has actually cleared up. He had repeat CT scans done that showed no progression of his hematomas, or new bleeding. Urine culture did grow E. coli. Blood cultures were negative. Chest x-ray on admission did not show any abnormal findings Review of Systems Constitutional: Reports fatigue, Reports weakness Eyes: denies blurred vision, denies pain Ears: deny: decreased hearing, ear discharge, earache, tinnitus Ears, nose, mouth and throat: Denies headache, Denies sore throat Cardiovascular: Denies chest pain, Denies shortness of breath Respiratory: Denies cough Gastrointestinal: Denies abdominal pain, Denies diarrhea, Denies nausea, Denies vomiting Genitourinary: Reports as per HPI, Reports hematuria, Reports urinary retention Musculoskeletal: Reports muscle weakness Integumentary: Denies pruritus, Denies rash Neurological: Reports aphasia, Reports head injury, Reports weakness Psychiatric: Reports irritability Endocrine: Reports fatigue Hematologic/Lymphatic: Reports as per HPI Past Medical History Past Medical History: Blood Disorder, Coronary Artery Disease (CAD), CVA/TIA, Hyperlipidemia, Hypertension Additional Past Medical History / Comment(s): Recent fall down stairs 2 weeks ago and had two brain bleeds. History of Any Multi-Drug Resistant Organisms: None Reported Past Surgical History: Back Surgery, Heart Catheterization With Stent, Orthopedic Surgery Additional Past Surgical History / Comment(s): right elbow, craniotomy Past Anesthesia/Blood Transfusion Reactions: No Reported Reaction Date of Last Stent Placement:: 2010 Past Psychological History: No Psychological Hx Reported Smoking Status: Former smoker Past Alcohol Use History: Occasional Additional Past Alcohol Use History / Comment(s): has smoked for about 50 yrs; cut down to 5 cigs a day Past Drug Use History: None Reported - Past Family History Sister(s) Family Medical History: Cancer Additional Family Medical History / Comment(s): lung breast Mother Family Medical History: Cancer Brother(s) Family Medical History: Cancer Additional Family Medical History / Comment(s): colon Medications and Allergies Home Medications Medication Instructions Recorded Confirmed Type Atorvastatin [Lipitor] 40 mg PO HS 06/01/18 06/30/20 History carvediloL [Coreg] 6.25 mg PO BID-W/MEALS 06/01/18 06/30/20 History lisinopriL [Zestril] 10 mg PO BID 06/01/18 06/30/20 History Tamsulosin HCl [Flomax] 0.4 mg PO DAILY 06/30/20 06/30/20 History levETIRAcetam [Keppra] 500 mg PO BID 06/30/20 06/30/20 History Acetaminophen Tab [Tylenol] 650 mg PO Q6HR PRN tab 07/08/20 Rx Cephalexin [Keflex] 500 mg PO TID 3 Days #9 cap 07/08/20 Rx Folic Acid 1 mg PO DAILY@1200 tab 07/08/20 Rx Multivitamins, Thera [Multivitamin 1 each PO DAILY@1200 tab 07/08/20 Rx (formulary)] Ondansetron [Zofran] 4 mg PO Q8HR PRN tab 07/08/20 Rx Pantoprazole [Protonix] 40 mg PO AC-[id number] tablet. 07/08/20 Rx Thiamine [Vitamin B-1] 100 mg PO DAILY@1200 tab 07/08/20 Rx Allergies Allergy/AdvReac Type Severity Reaction Status Date / Time naproxen sodium [From Aleve] Allergy Rash/Hives Verified 06/30/20 15:14 latex AdvReac Rash/Hives Verified 06/30/20 15:37 Physical Exam Vitals: Vital Signs Temp Pulse Resp BP BP Pulse Ox 07/13/20 07:00 98.8 F 77 16 145/77 97 07/13/20 04:46 17 07/13/20 02:15 98.0 F 72 17 118/77 97 07/13/20 00:00 17 07/12/20 19:44 98.0 F 78 17 109/72 97 07/12/20 19:08 16 07/12/20 14:25 98 F 90 16 112/71 98 Intake and Output 07/12/20 07/13/20 07/13/20 22:59 06:59 14:59 Output Total 675 975 Balance -675 -975 Output: Urine 675 975 Other: Voiding Method Indwelling Catheter Indwelling Catheter Indwelling Catheter - Constitutional General appearance: no acute distress - EENT Eyes: EOMI, PERRLA ENT: hearing grossly normal, normal oropharynx - Neck Neck: no lymphadenopathy Thyroid: bilateral: normal size - Respiratory Respiratory: bilateral: CTA - Cardiovascular Rhythm: regular Heart sounds: normal: S1, S2 - Gastrointestinal General gastrointestinal: normal bowel sounds, soft - Integumentary Integumentary: normal - Neurologic Patient awake. Able to respond to commands partially. Essentially nonverbal. Neurologic: CNII-XII intact - Musculoskeletal Musculoskeletal: generalized weakness - Psychiatric Unable to assess orientation due to patient being on normal. 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 He follows with Dr. Thurman regularly as an outpatient - During this admission has been a drop in platelet count noted. This could be due to ITP exacerbation which can certainly occur with recent injury, surgery, inflammation as well as possible acute infection. He does not have any obvious bleeding. Hematuria on presentation is actually cleared up despite the platelet counts dropping. - Check labs to rule out deficiency states given recent hospitalization. I will also check fibrinogen. - Assuming these are negative, generally a platelet count of greater than 10,000 in a patient with ITP would not require intervention. However because of his recent intracranial surgery and bleed it would be more desirable to try to maintain his platelet count above 40-50,000. I will therefore start him on steroids at prednisone 60 mg per day. The daughter requested to use IVs as the patient keeps pulling the marked. He has had good responses to oral steroids previously. - Assuming that there is a response, the patient can have a rapid taper over 5-7 days, as the plan according to his daughter recently came back to [place] for completion of his surgery with placement of a craniotomy flap. Typically for skull surgery updated count greater than 50,000 should be sufficient. They were advised to the patient can receive additional platelet at the time of surgery if needed. - Continue cyclosporine - Continue to monitor Current Visit: Yes Status: Acute Code(s): D69.3 - IMMUNE THROMBOCYTOPENIC PURPURA SNOMED Code(s): 0724016 (2) UTI (urinary tract infection) Narrative/Plan: Defer to the admitting service and other consultants for management. Current Visit: Yes Status: Acute Code(s): N39.0 - URINARY TRACT INFECTION, SITE NOT SPECIFIED SNOMED Code(s): 09867396
[2020-07-13] MEDS: FOLIC ACID 1 MG TAB PO SCH (12:10)
[2020-07-13] MEDS: THIAMINE 100 MG TAB PO SCH (12:10)
[2020-07-13] MEDS: MULTIVITAMINS, THERA 1 EACH TAB PO SCH (12:10)
[2020-07-13 12:59] LABS: Large Platelets Present
--- NOTE | 2020-07-13 15:14 | P.PN ---
Subjective Progress Note Date: 07/13/20 Principal diagnosis: 64 year old male who was recently admitted with acute urinary tract infection and altered mental status and is being closely monitored. Patient recently underwent craniotomy up in wall after a fall down some stairs. Neurology evaluated the patient today recommending continuing the Keppra and follow up with neurosurgeon outpatient as previously discussed. Patient being followed by PT/OT and has been working with them with family at the bedside. Case management and social work following and awaiting [facility] facility in [place] to review the chart and updated notes from PT for possible placement. Patient is continued on oral Keflex for uti with cultures finalized showing ecoli. Patient continues to be confused although was able to name what city he was in and his name. Will continue to monitor closely. No reports of chest pain. Patient is afebrile. Swallow eval done and being advanced to dysphagia 3 chopped diet. 07/11/2020 Patient is seen and evaluated with family members at bedside; family members claimed that they are disappointed because patient lost his bed in [facility] due to delay in insurance authorization, and plan to take patient home if there is no opening by Monday Vital signs are reviewed and stable; lab review shows a white blood count of 9.8, hemoglobin 11.8 and platelet count of 45 which is significant trend down from 116 on 07/07/2020; we will monitor CBC closely and consult hematology if platelet count continues to drop; patient remains on cyclosporine eyedrops for bilateral conjunctivitis; antibiotics has been switched to oral in form of Keflex 500 mg 3 times a day for completing treatment for UTI Case management/SERVICE STATION OPERATOR to follow patient tomorrow for further recommendations on discharge planning 07/12/2020 Patient is seen resting comfortably in the recliner; daughter is at bedside; reports improvement in itching and redness of both eyes; patient remains on cyclosporine eyedrops; labs are discussed with patient's daughter with platelet count continues to drop down to 37; according to daughter which 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 Patient currently awaiting on [facility] rehab placement was authorization from insurance is obtained in the bed becomes available. Daughter at the bedside stated once they follow-up with social work in the morning they may likely take him home with home care and schedule flap surgery at [facility] with the neurosurgeon as he continues to progress. Patient has been working with physical therapy every day and continues to show improvement. Patient continues to pull at Barrientos catheter and per daughter has been urinating around it and is requesting for to be removed. Discussed with the daughter at length about a trial of voiding and also nursing staff made aware that if he continues to retain will have to reinsert an indwelling Barrientos catheter and continue with outpatient urology follow-up. Daughter is agreeable to this plan. will continue with Flomax at this time. Patient is currently maintained on oral antibiotics in the form of Keflex for UTI with cultures finalizing showing E. coli. Hematology was also consulted for past history of ITP and was given a dose of prednisone 60 mg today. Patient does follow with Dr. Shah in the outpatient setting. Will repeat a.m. labs and monitor closely. Social work also following and will discuss with them in the morning about discharge planning and plan of care. Patient continues to have some left eye surrounding tissue redness although was recently transitioned to ciprofloxacin and will continue at this time as irritation has slightly improved. currently no reports of chest pain, shortness of breath, or palpitations. Patient is afebrile. No reports of nausea vomiting and patient is tolerating diet. Objective - Vital Signs Vital signs: Vital Signs Temp 98.8 F 07/13/20 07:00 Pulse 77 07/13/20 07:00 Resp 16 07/13/20 07:00 BP 145/77 07/13/20 07:00 Pulse Ox 97 07/13/20 07:00 Intake & Output 07/12/20 07/13/20 07/13/20 18:59 06:59 18:59 Output Total 600 1650 Balance -600 -1650 Output: Urine 600 1650 Other: Voiding Method Indwelling Catheter Indwelling Catheter Indwelling Catheter - Exam GENERAL: Patient is awake, continues to be confused, alert and oriented 01-2. Temp is 98.8F, pulse is 77, respirations are 16, blood pressure is 145/77, oxygen saturation is 97% on room air. HEENT: Pupils are round and equally reacting to light. EOMI. No scleral icterus. No conjunctival pallor. Normocephalic, patient has left scalp craniotomy scar. No pharyngeal erythema. No thyromegaly. Left eye redness and surrounding irritation noted with some mild drainage noted. slightly improved. CARDIOVASCULAR: S1 and S2 present. No murmurs, rubs, or gallops. PULMONARY: Diminished breath sounds bilaterally with no wheezing or crackles. ABDOMEN: Soft, nontender, nondistended, normoactive bowel sounds. No palpable organomegaly. MUSCULOSKELETAL: No joint swelling or deformity. EXTREMITIES: No cyanosis, clubbing, or pedal edema. NEUROLOGICAL: alert and oriented x1-2. diffusely weak - Labs CBC & Chem 7: 07/13/20 07:36 07/13/20 07:36 Labs: Abnormal Lab Results - Last 24 Hours (Table) 07/13/20 07/13/20 Range/Units 07:36 07:36 WBC 12.0 H (3.8-10.6) k/uL Creatinine 0.64 L (0.66-1.25) mg/dL Assessment and Plan Assessment: -Acute urinary tract infection and hematuria with E coli with possible sepsis, present on admission, most likely due to Barrientos catheter -Acute left eye conjunctivitis -History of recent intracranial hemorrhage, stroke secondary to that, patient was status post craniotomy evacuation of left intracranial hematoma spontaneous -History of recent right inferior cerebellar stroke -Covid 19 ruled out, testing was negative -change is mental status, metabolic encephalopathy -Hypertension -Acute metabolic encephalopathy most likely related to acute urinary tract infection -Mildly elevated liver enzymes nonspecific elevation, improving -Urinary retention secondary to stroke and intracranial hemorrhage -History of Coronary artery disease, stent -History of MRSA -History of nicotine dependence -Hyperlipidemia -GI prophylaxis -Full code Plan: Continue current medications, management, and symptomatic treatment. PT/OT following. Social work also following and working on possible inpatient rehab at [facility] in [place] for continued neuro rehab. [facility] has accepted the patient and now currently waiting for insurance authorization which is pending at this time. [facility] has also notified social work there is no current bed available until possibly next week. Will rediscuss with social work about possible alternative placements and family possibly willing to take the patient home with home care and schedule flap surgery at [facility] and take him there is stable for discharge as they continue to wait for a bed at rehab. Will continue to monitor closely. Covid 19 testing was negative. Further recommendations to follow. Possible discharge in 24-48 hours
[2020-07-13] MEDS: ACETAMINOPHEN TAB 325 MG TAB PO PRN (17:09)
[2020-07-13] MEDS: ATORVASTATIN 40 MG TAB PO SCH (19:58)
[2020-07-13] MEDS: MELATONIN 3 MG TABLET PO SCH (19:59)
[2020-07-14 01:49] VITALS: RESP 18
[2020-07-14] MEDS: CIPROFLOXACIN 0.3% OPHTH SOLN 5 ML BTL BOTH EYES SCH ×3 (06:19→12:08)
[2020-07-14 08:28] VITALS: BP 128/79; PULSE 84; TEMP 98.2
[2020-07-14] MEDS: carvediloL 6.25 MG TAB PO SCH (08:43)
[2020-07-14] MEDS: ACETAMINOPHEN TAB 325 MG TAB PO PRN (08:43)
[2020-07-14] MEDS: TAMSULOSIN 0.4 MG CAP.ER.24H PO SCH (08:43)
[2020-07-14] MEDS: CEPHALEXIN 500 MG CAP PO SCH (08:43)
[2020-07-14] MEDS: PANTOPRAZOLE 40 MG TABLET PO SCH (08:43)
[2020-07-14] MEDS: levETIRAcetam 500 MG TAB PO SCH (08:43)
[2020-07-14] MEDS: lisinopriL 10 MG TAB PO SCH (08:44)
[2020-07-14] MEDS: cycloSPORINE 0.05% OPHTH 0.4 ML DROPERETTE BOTH EYES SCH (08:44)
[2020-07-14] MEDS ORDERED: predniSONE 20 MG TAB PO STA (09:17)
[2020-07-14] MEDS: THIAMINE 100 MG TAB PO SCH (12:07)
[2020-07-14] MEDS: FOLIC ACID 1 MG TAB PO SCH (12:07)
[2020-07-14] MEDS: MULTIVITAMINS, THERA 1 EACH TAB PO SCH (12:08)
[2020-07-14 13:28] LABS: ALT 43 U/L (4-49); AST 33 U/L (17-59); African American GFR (CKD) >90 (>60 ml/min/1.73 sqM); Alkaline Phosphatase 73 U/L (38-126); Anion Gap 9 mmol/L; Blood Urea Nitrogen 18 mg/dL (9-20); Carbon Dioxide 25 mmol/L (22-30); Chloride 104 mmol/L (98-107); Glucose 117 mg/dL (74-99); Non-African American GFR(CKD) >90 (>60 ml/min/1.73 sqM); Potassium 4.2 mmol/L (3.5-5.1); Sodium 138 mmol/L (137-145); Total Bilirubin 0.7 mg/dL (0.2-1.3); Total Protein 6.8 g/dL (6.3-8.2)
[2020-07-14 13:30] LABS: Basophils % (A) 0 %; Eosinophils % (A) 0 %; HCT 40.9 % (39.0-53.0); Hypochromasia Slight; Lymphocytes # (A) 1.5 k/uL (1.0-4.8); Lymphocytes % (A) 13 %; MCH 30.2 pg (25.0-35.0); MCHC 31.8 g/dL (31.0-37.0); MCV 95.2 fL (80.0-100.0); Mean Platelet Volume 15.4; Monocytes # (A) 0.4 k/uL (0-1.0); Monocytes % (A) 4 %; Neutrophils # (A) 9.9 k/uL (1.3-7.7); Neutrophils % (A) 82 %; RBC 4.29 m/uL (4.30-5.90); RDW 14.2 % (11.5-15.5)
[2020-07-14 14:49] LABS: Anisocytosis (M) Present; Platelet Count 45 k/uL (150-450); Poikilocytosis (M) Present
--- NOTE | 2020-07-15 08:53 | P.DS ---
Providers Date of admission: 07/02/20 12:42 Expected date of discharge: 07/14/20 Attending physician: Rodrigue Nicolas Consults: 06/30/20 16:02 Consult Physician Routine Consulting Provider: Deshaun Hernandez Consult Reason/Comments: Eval for inpatient rehab Do you want consulting provider notified?: Yes 07/05/20 12:40 Consult Physician Routine Consulting Provider: Tracie Gottlieb Consult Reason/Comments: previous left side craniotomy Do you want consulting provider notified?: Yes 07/07/20 12:43 Consult Physician Routine Consulting Provider: Zhang Oliveira Consult Reason/Comments: franco in place retention Do you want consulting provider notified?: Yes 07/12/20 08:48 Consult Physician Routine Consulting Provider: Maciej Zamudio Consult Reason/Comments: eyes red/swollen Do you want consulting provider notified?: Yes 07/12/20 12:33 Consult Physician Routine Consulting Provider: Mick Chow Consult Reason/Comments: Thrombocytopenia Do you want consulting provider notified?: Yes Primary care physician: Jac Ibrahim Hospital Course: Final diagnosis -Acute urinary tract infection and hematuria with E coli with possible sepsis, present on admission, most likely due to Franco catheter -Acute left eye conjunctivitis -History of recent intracranial hemorrhage, stroke secondary to that, patient was status post craniotomy evacuation of left intracranial hematoma spontaneous -History of recent right inferior cerebellar stroke -Covid 19 ruled out, testing was negative -change is mental status, metabolic encephalopathy -Hypertension -Acute metabolic encephalopathy most likely related to acute urinary tract infection -Mildly elevated liver enzymes nonspecific elevation, improving -Urinary retention secondary to stroke and intracranial hemorrhage -History of Coronary artery disease, stent -History of MRSA -History of nicotine dependence -Hyperlipidemia -GI prophylaxis -Full code Discharge disposition Patient is being discharged in a stable condition with guarded prognosis to home. Patient will continue with home care in the outpatient setting. Patient will follow-up with primary care provider in the outpatient setting upon discharge. Patient will also be making arrangements for surgery in [place] with neurosurgeon. Patient will continue with oral antibiotics in the form of Keflex 500 mg 3 times daily for the next 3 days to complete the course. Patient will also continue on a prednisone taper per hematology recommendations. Total time taken is greater than 35 minutes. History of present illness This is a 64-year-old male who was recently admitted with acute urinary tract infection and altered mental status and was being closely monitored. Patient recently underwent craniotomy and Gene after falling down some stairs and was sent home with an indwelling Franco catheter due to retention and became increasingly altered and pulling at the Franco with hematuria noted. Indwelling Franco catheter was replaced on this admission and urine cultures were sent finalizing showing E. coli and was treated with ceftriaxone and transitioned oral Keflex and will continue with Keflex 500 mg 3 times daily for the next 3 days to complete the course. Patient worked with PT/OT daily and showed improvement and was evaluated by [facility] inpatient rehab with the possibility of going there for continued PT/OT therapy. Patient did not qualify and was ultimately accepted at [facility] although prior authorization was never obtained through insurance and there were no beds available. Patient continued to improve and daughters felt comfortable with taking him home with home care and arranging for his upcoming surgery to replace the flap from the recent craniotomy up in [place]. Patient was evaluated by urology recommending continuing indwelling Franco catheter if he continues to retain although which showing improvements with urinating and urinating around the catheter. Patient is maintained on Flomax and will continue in the outpatient setting. Indwelling Franco catheter was removed and patient is tolerating well and urinating with no difficulties. Patient's family would like to take him home today. Patient is maintained on dysphagia 3 Diet and will continue at this time. Patient was also provided a prescription for repeat Covid testing next week prior to going back up to [place]. Currently no reports of chest pain, shortness of breath, or palpitations. Patient is afebrile. No reports of nausea or vomiting and patient is tolerating diet. Patient will be discharged home today. On exam vital signs are stable. Temp is 98.2F, pulse is 84, respirations are 18, blood pressure is 128/79, oxygen saturation is 97% on room air. Cardio S1, S2 are muffled. Respiratory system shows diminished breath sounds at the bases with no wheezing or rhonchi noted. Abdomen is soft and nontender. Nervous system shows no focal deficits. Please refer to medication reconciliation sheet for a list of medications. Patient Condition at Discharge: Stable Plan - Discharge Summary Discharge Rx Participant: Yes New Discharge Prescriptions: New Ciprofloxacin Ophth Soln [Ciloxan 0.3% Ophth Soln] 1 drops BOTH EYES Q4HR 7 Days #5 ml Folic Acid 1 mg PO DAILY #30 tablet Multivitamins, Thera [Multivitamin] 1 tab PO DAILY #30 tablet Thiamine [Vitamin B-1] 100 mg PO DAILY #30 tablet predniSONE 10 mg PO DIRECTED #21 tab Cephalexin [Keflex] 500 mg PO Q8HR 3 Days #9 cap Continue lisinopriL [Zestril] 10 mg PO BID carvediloL [Coreg] 6.25 mg PO BID-W/MEALS Atorvastatin [Lipitor] 40 mg PO HS levETIRAcetam [Keppra] 500 mg PO BID Tamsulosin HCl [Flomax] 0.4 mg PO DAILY Discharge Medication List Atorvastatin [Lipitor] 40 mg PO HS 06/01/18 [History] carvediloL [Coreg] 6.25 mg PO BID-W/MEALS 06/01/18 [History] lisinopriL [Zestril] 10 mg PO BID 06/01/18 [History] Tamsulosin HCl [Flomax] 0.4 mg PO DAILY 06/30/20 [History] levETIRAcetam [Keppra] 500 mg PO BID 06/30/20 [History] Cephalexin [Keflex] 500 mg PO Q8HR 3 Days #9 cap 07/14/20 [Rx] Ciprofloxacin Ophth Soln [Ciloxan 0.3% Ophth Soln] 1 drops BOTH EYES Q4HR 7 Days #5 ml 07/14/20 [Rx] Folic Acid 1 mg PO DAILY #30 tablet 07/14/20 [Rx] Multivitamins, Thera [Multivitamin] 1 tab PO DAILY #30 tablet 07/14/20 [Rx] Thiamine [Vitamin B-1] 100 mg PO DAILY #30 tablet 07/14/20 [Rx] predniSONE 10 mg PO DIRECTED #21 tab 07/14/20 [Rx] Follow up Appointment(s)/Referral(s): [facility], [NON-STAFF] - As Needed Nonstaff,Physician [REFERRING] - 1-2 days Ambulatory/Diagnostic Orders: Coronavirus SARS CoV-2 by PCR [LAB.AMB] Time Frame: 07/21/20, Facility: [facility], Location: [place] [address] Patient Instructions/Handouts: Urinary Tract Infection in Men (DC), Level 3 National Dysphagia Diet (DC), Conjunctivitis (ED) Activity/Diet/Wound Care/Special Instructions: Patient is going home with home care and daughters to arrange for surgery at [place] Activity Limited until follow-up Continue current dysphagia level III chopped diet with one-to-one assistance and supervision and head of the bed elevated 30-45 to minimize risk of aspiration Continue current antibiotics for the next 3 days to complete the course Continue with eyedrops antibiotics for the next one week to complete the course Discharge Disposition: HOME WITH HOME HEALTH SERVICES
[2020-07-16 08:29] LABS: Methylmalonic Acid 0.32 umol/L (<0.40)
== END 2020-07-14 15:54 | disposition home health service (06) | DRG 698 ==
LOC: EC 12:13 → 4SSUR 14:25 → OBSVTOIN 07-02 12:42
PROVIDERS: ADMIT Internal Medicine; ATTEND Internal Medicine
DX: T83.511A Infection and inflammatory reaction due to indwelling urethral catheter, initial encounter (principal); G93.41 Metabolic encephalopathy; A41.51 Sepsis due to Escherichia coli [E. coli]; D69.3 Immune thrombocytopenic purpura; R47.01 Aphasia; G81.91 Hemiplegia, unspecified affecting right dominant side; S37.30XA Unspecified injury of urethra, initial encounter; J44.9 Chronic obstructive pulmonary disease, unspecified; N39.0 Urinary tract infection, site not specified; R31.9 Hematuria, unspecified; S06.5X9D Traumatic subdural hemorrhage with loss of consciousness of unspecified duration, subsequent encounter; R40.2132 Coma scale, eyes open, to sound, at arrival to emergency department; R40.2352 Coma scale, best motor response, localizes pain, at arrival to emergency department; R40.2232 Coma scale, best verbal response, inappropriate words, at arrival to emergency department; H10.32 Unspecified acute conjunctivitis, left eye; R33.8 Other retention of urine; I10 Essential (primary) hypertension; I25.10 Atherosclerotic heart disease of native coronary artery without angina pectoris; E78.5 Hyperlipidemia, unspecified; Z20.828 Contact with and (suspected) exposure to other viral communicable diseases; R13.10 Dysphagia, unspecified; H91.90 Unspecified hearing loss, unspecified ear; R74.8 Abnormal levels of other serum enzymes; F10.11 Alcohol abuse, in remission; F17.210 Nicotine dependence, cigarettes, uncomplicated; Z71.6 Tobacco abuse counseling; Z79.899 Other long term (current) drug therapy; Z86.14 Personal history of Methicillin resistant Staphylococcus aureus infection; Z95.5 Presence of coronary angioplasty implant and graft; Z87.39 Personal history of other diseases of the musculoskeletal system and connective tissue; Z98.890 Other specified postprocedural states; Y84.6 Urinary catheterization as the cause of abnormal reaction of the patient, or of later complication, without mention of misadventure at the time of the procedure; W10.8XXD Fall (on) (from) other stairs and steps, subsequent encounter; Z88.6 Allergy status to analgesic agent; Z91.040 Latex allergy status; Z80.1 Family history of malignant neoplasm of trachea, bronchus and lung; Z80.3 Family history of malignant neoplasm of breast; Z80.0 Family history of malignant neoplasm of digestive organs
CPT/HCPCS: 36415; 70450; 71046; 80048; 80053; 81001; 82607; 82747; 83605; 83921; 85025; 85027; 85384; 85610; 85730; 87040; 87077; 87086; 87186; 93005; 96361; 96374; 96375; 99285

== ENCOUNTER → 2020-08-03 | Outpatient (CLI) | payer MEDICARE | END | disposition home or self-care (01) | LOC: LABWHC1 12:44 | PROVIDERS: ATTEND Registered Nurse | DX: Z01.812 Encounter for preprocedural laboratory examination (principal) ==

== ENCOUNTER 2020-08-24 14:17 | Emergency (ER) | payer MEDICARE ==
[2020-08-24 14:50] VITALS: BP 83/38; PULSE 87; RESP 16; TEMP 97.5
[2020-08-24] MEDS ORDERED: SULFAMETH-TMP DS STARTER PACK 2 TAB BTL PO STA (16:02)
[2020-08-24] MEDS ORDERED: CEPHALEXIN 500MG STARTER PACK 4 CAP BTL PO STA (16:02)
[2020-08-24] MEDS ORDERED: SULFAMETHOX-TMP 800-160MG 1 EACH TAB PO STA (16:02)
[2020-08-24] MEDS ORDERED: CEPHALEXIN 500 MG CAP PO STA (16:02)
--- NOTE | 2020-08-24 16:06 | ED ---
Recheck HPI - General Chief Complaint: Wound/Laceration Stated Complaint: post surgical incision issues Time Seen by Provider: 08/24/20 15:30 Source: patient, RN notes reviewed, old records reviewed Mode of arrival: wheelchair Limitations: no limitations - History of Present Illness Initial Comments: This is a 64-year-old male DF for evaluation presented today for evaluation regards to drainage from scalp incision. Patient had craniotomy, flap creation. They noticed some purulent drainage from the middle of the laceration today at home it was itchy, patient without fevers no headache. No surrounding redness, patient's daughter is a nurse she was able to express some purulent drainage from the site and now it is draining clear. Patient presents today for antibiotics. MD Complaint: wound re-check -: days(s) Returns Today for: request for prescription (Patient requiring prescriptions) Symptoms Since Prior Visit: no new symptoms Context: ran out of medication Associated Symptoms: none Treatments Prior to Arrival: other (Patient not currently on any treatment) - Related Data Home Medications Medication Instructions Recorded Confirmed Atorvastatin [Lipitor] 40 mg PO HS 06/01/18 06/30/20 carvediloL [Coreg] 6.25 mg PO BID-W/MEALS 06/01/18 06/30/20 lisinopriL [Zestril] 10 mg PO BID 06/01/18 06/30/20 Tamsulosin HCl [Flomax] 0.4 mg PO DAILY 06/30/20 06/30/20 levETIRAcetam [Keppra] 500 mg PO BID 06/30/20 06/30/20 Previous Rx's Medication Instructions Recorded Cephalexin [Keflex] 500 mg PO Q8HR 3 Days #9 cap 07/14/20 Ciprofloxacin Ophth Soln [Ciloxan 1 drops BOTH EYES Q4HR 7 Days #5 ml 07/14/20 0.3% Ophth Soln] Folic Acid 1 mg PO DAILY #30 tablet 07/14/20 Multivitamins, Thera [Multivitamin] 1 tab PO DAILY #30 tablet 07/14/20 Thiamine [Vitamin B-1] 100 mg PO DAILY #30 tablet 07/14/20 predniSONE 10 mg PO DIRECTED #21 tab 07/14/20 Allergies Allergy/AdvReac Type Severity Reaction Status Date / Time naproxen sodium [From Aleve] Allergy Rash/Hives Verified 08/24/20 14:50 latex AdvReac Rash/Hives Verified 08/24/20 14:50 Review of Systems ROS Statement: Those systems with pertinent positive or pertinent negative responses have been documented in the HPI. ROS Other: All systems not noted in ROS Statement are negative. Past Medical History Past Medical History: Blood Disorder, Coronary Artery Disease (CAD), CVA/TIA, Hyperlipidemia, Hypertension Additional Past Medical History / Comment(s): fall down stairs and had two brain bleeds, ITP History of Any Multi-Drug Resistant Organisms: None Reported Past Surgical History: Back Surgery, Heart Catheterization With Stent, Orthopedic Surgery Additional Past Surgical History / Comment(s): right elbow, craniotomy Past Anesthesia/Blood Transfusion Reactions: No Reported Reaction Date of Last Stent Placement:: 2010 Past Psychological History: No Psychological Hx Reported Smoking Status: Former smoker Past Alcohol Use History: Occasional Past Drug Use History: None Reported - Past Family History Sister(s) Family Medical History: Cancer Additional Family Medical History / Comment(s): lung breast Mother Family Medical History: Cancer Brother(s) Family Medical History: Cancer Additional Family Medical History / Comment(s): colon General Exam Limitations: no limitations General appearance: alert, in no apparent distress Head exam: Present: normocephalic, normal inspection. Absent: atraumatic (Patient has craniotomy flap with mild drainage and erythema, no purulent drainage currently nontender no surrounding erythema) Eye exam: Present: normal appearance, PERRL, EOMI. Absent: scleral icterus, conjunctival injection, periorbital swelling ENT exam: Present: normal exam, mucous membranes moist Neck exam: Present: normal inspection. Absent: tenderness, meningismus, lymph adenopathy Respiratory exam: Present: normal lung sounds bilaterally. Absent: respiratory distress, wheezes, rales, rhonchi, stridor Cardiovascular Exam: Present: regular rate, normal rhythm, normal heart sounds. Absent: systolic murmur, diastolic murmur, rubs, gallop, clicks GI/Abdominal exam: Present: soft, normal bowel sounds. Absent: distended, tenderness, guarding, rebound, rigid Extremities exam: Present: normal inspection, full ROM, normal capillary refill. Absent: tenderness, pedal edema, joint swelling, calf tenderness Back exam: Present: normal inspection Neurological exam: Present: alert, oriented X3, CN II-XII intact Psychiatric exam: Present: normal affect, normal mood Skin exam: Present: warm, dry, intact, normal color. Absent: rash Course Vital Signs 08/24/20 14:44 Temperature 97.5 F L Pulse Rate 87 Respiratory 16 Rate Blood Pressure 83/38 O2 Sat by Pulse 97 Oximetry - Reevaluation(s) Reevaluation #1: 08/24/20 16:05 Medical records reviewed Reevaluation #2: 08/24/20 16:05 Spoke with patient and family regarding treatment plan follow-up with primary care to mildly would like antibiotics currently and will keep an eye on site for a day Medical Decision Making - Medical Decision Making 64 female to the ER for evaluation patient presented for evaluation of the head wound. Some purulent drainage was currently seen earlier in the day that is resolved. Patient placed on antibiotics discharge home continue close follow-up Disposition Clinical Impression: Wound infection, H/O craniotomy Disposition: HOME SELF-CARE Condition: Fair Instructions (If sedation given, give patient instructions): Wound Infection (ED) Is patient prescribed a controlled substance at d/c from ED?: No Referrals: Jac Ibrahim MD [Primary Care Provider] - 1-2 days
== END 2020-08-24 16:23 | disposition home or self-care (01) ==
LOC: EC 14:17
DX: T81.89XA Other complications of procedures, not elsewhere classified, initial encounter (principal); L08.9 Local infection of the skin and subcutaneous tissue, unspecified; Z98.890 Other specified postprocedural states; I25.10 Atherosclerotic heart disease of native coronary artery without angina pectoris; I10 Essential (primary) hypertension; E78.5 Hyperlipidemia, unspecified; Z79.899 Other long term (current) drug therapy; Z79.02 Long term (current) use of antithrombotics/antiplatelets; Z88.6 Allergy status to analgesic agent; Z91.040 Latex allergy status; Z87.891 Personal history of nicotine dependence; Z86.73 Personal history of transient ischemic attack (TIA), and cerebral infarction without residual deficits; Z95.5 Presence of coronary angioplasty implant and graft
CPT/HCPCS: 99283

== ENCOUNTER 2020-08-27 14:36 | Emergency (ER) | payer MEDICARE ==
[2020-08-27 15:17] LABS: Basophils % (A) 1 %; Eosinophils # (A) 0.1 k/uL (0-0.7); Eosinophils % (A) 1 %; HCT 42.2 % (39.0-53.0); HGB 13.8 gm/dL (13.0-17.5); Lymphocytes # (A) 1.2 k/uL (1.0-4.8); Lymphocytes % (A) 16 %; MCH 32.4 pg (25.0-35.0); MCHC 32.6 g/dL (31.0-37.0); MCV 99.4 fL (80.0-100.0); Macrocytosis Slight; Mean Platelet Volume 12.8; Monocytes # (A) 0.6 k/uL (0-1.0); Monocytes % (A) 8 %; Neutrophils # (A) 5.5 k/uL (1.3-7.7); Neutrophils % (A) 72 %; Platelet Count 56 k/uL (150-450); RBC 4.25 m/uL (4.30-5.90); RDW 15.5 % (11.5-15.5); WBC 7.6 k/uL (3.8-10.6)
[2020-08-27 15:24] LABS: INR 0.9 (<1.2); Partial Thromboplastin Time 22.1 sec (22.0-30.0); Prothrombin Time 9.5 sec (9.0-12.0)
--- NOTE | 2020-08-27 15:24 | XR ---
EXAMINATION TYPE: XR chest 2V DATE OF EXAM: 08/27/2020 COMPARISON: Chest x-ray June 30, 2020. HISTORY: Dysphasia and weakness. TECHNIQUE: Frontal and lateral views of the chest are obtained. FINDINGS: There is no new suspicious focal air space opacity, pleural effusion, or pneumothorax seen . The cardiac silhouette size is mildly enlarged with single lead pacemaker redemonstrated. The os seous structures are intact. IMPRESSION: Mild cardiomegaly without acute pulmonary process. No significant change from prior.
[2020-08-27 15:25] LABS: Large Platelets Present
[2020-08-27 15:29] VITALS: RESP 14; TEMP 97.9
--- NOTE | 2020-08-27 15:31 | CT ---
EXAMINATION TYPE: CT brain wo con for TPA DATE OF EXAM: 08/27/2020 COMPARISON: 07/04/2020 HISTORY: Trouble speaking. CT DLP: 1082.4 mGycm Automated exposure control for dose reduction was used. FINDINGS: There is low attenuation in the right cerebellar hemisphere which is similar in appearance to the cristina or exam and therefore compatible with remote ischemia. There is asymmetric appearance of the left cer ebral convexity. Postsurgical changes are seen. No midline shift. CSF collection on the left is compatible with a smal l subdural chronic hematoma. Component of chronic epidural hematoma more superiorly in the differenti al diagnosis. However, on image 25 there is hyperdensity adjacent to the frontal lobes. Cannot exclud e a component of acute subdural hematoma. No significant midline shift. Intracranial atherosclerotic changes are noted. IMPRESSION: 1. THERE IS A EXTRA-AXIAL FLUID COLLECTION WAS THE MAJORITY APPEARING CHRONIC ALONG THE LEFT CEREBRAL CONVEXITIES SUGGESTIVE OF A CHRONIC SUBDURAL HEMATOMA. HOWEVER, ON IMAGE NUMBER 25 ALONG THE LEFT FR ONTAL LOBE THERE IS HYPERDENSITY. THERE WAS A SIMILAR DENSITY SEEN ON THE PRIOR EXAM AND THIS COULD B E POSTSURGICAL RELATED TO THROMBOSED VESSEL. A SMALL COMPONENT OF ACUTE SUBDURAL HEMATOMA COULD NOT B E EXCLUDED.
[2020-08-27 15:40] LABS: ALT 67 U/L (4-49); AST 47 U/L (17-59); African American GFR (CKD) >90 (>60 ml/min/1.73 sqM); Albumin 3.8 g/dL (3.5-5.0); Alkaline Phosphatase 69 U/L (38-126); Anion Gap 6 mmol/L; Blood Urea Nitrogen 23 mg/dL (9-20); Calcium 8.9 mg/dL (8.4-10.2); Carbon Dioxide 22 mmol/L (22-30); Chloride 107 mmol/L (98-107); Glucose 107 mg/dL (74-99); Non-African American GFR(CKD) >90 (>60 ml/min/1.73 sqM); Potassium 4.6 mmol/L (3.5-5.1); Sodium 135 mmol/L (137-145); Total Bilirubin 0.5 mg/dL (0.2-1.3); Total Protein 6.9 g/dL (6.3-8.2)
--- NOTE | 2020-08-27 15:48 | ED ---
General Adult HPI - General Chief complaint: Neuro Symptoms/Deficit Stated complaint: trouble speaking Source: patient, family, RN notes reviewed, old records reviewed Mode of arrival: wheelchair Limitations: no limitations - History of Present Illness Initial comments: 64-year-old male with recent intracranial hemorrhage status post craniotomy. Patient had surgery on August 07 to replace portion of his cranium. He had an initial intracranial hemorrhage in June requiring craniotomy this was at a hospital in the [facility]. Patient was doing well over the past several weeks until approximately 1330 when he developed difficulty speaking and slurred speech. These symptoms lasted approximately 45 minutes and were resolved prior to arrival. Patient has no complaints at the time my evaluation. No focal numbness or weakness. No speech difficulties. No headache. No fever. No vomiting. - Related Data Home Medications Medication Instructions Recorded Confirmed Atorvastatin [Lipitor] 40 mg PO HS 06/01/18 06/30/20 carvediloL [Coreg] 6.25 mg PO BID-W/MEALS 06/01/18 06/30/20 lisinopriL [Zestril] 10 mg PO BID 06/01/18 06/30/20 Tamsulosin HCl [Flomax] 0.4 mg PO DAILY 06/30/20 06/30/20 levETIRAcetam [Keppra] 500 mg PO BID 06/30/20 06/30/20 Previous Rx's Medication Instructions Recorded Cephalexin [Keflex] 500 mg PO Q8HR 3 Days #9 cap 07/14/20 Ciprofloxacin Ophth Soln [Ciloxan 1 drops BOTH EYES Q4HR 7 Days #5 ml 07/14/20 0.3% Ophth Soln] Folic Acid 1 mg PO DAILY #30 tablet 07/14/20 Multivitamins, Thera [Multivitamin] 1 tab PO DAILY #30 tablet 07/14/20 Thiamine [Vitamin B-1] 100 mg PO DAILY #30 tablet 07/14/20 predniSONE 10 mg PO DIRECTED #21 tab 07/14/20 Allergies Allergy/AdvReac Type Severity Reaction Status Date / Time naproxen sodium [From Aleve] Allergy Rash/Hives Verified 08/27/20 14:45 latex AdvReac Rash/Hives Verified 08/27/20 14:45 Review of Systems ROS Statement: Those systems with pertinent positive or pertinent negative responses have been documented in the HPI. ROS Other: All systems not noted in ROS Statement are negative. Past Medical History Past Medical History: Blood Disorder, Coronary Artery Disease (CAD), CVA/TIA, Hyperlipidemia, Hypertension Additional Past Medical History / Comment(s): fall down stairs and had two brain bleeds, ITP History of Any Multi-Drug Resistant Organisms: None Reported Past Surgical History: Back Surgery, Heart Catheterization With Stent, Orthopedic Surgery Additional Past Surgical History / Comment(s): right elbow, craniotomy Past Anesthesia/Blood Transfusion Reactions: No Reported Reaction Date of Last Stent Placement:: 2010 Past Psychological History: No Psychological Hx Reported Smoking Status: Former smoker Past Alcohol Use History: Occasional Past Drug Use History: None Reported - Past Family History Sister(s) Family Medical History: Cancer Additional Family Medical History / Comment(s): lung breast Mother Family Medical History: Cancer Brother(s) Family Medical History: Cancer Additional Family Medical History / Comment(s): colon General Exam Limitations: no limitations General appearance: alert, in no apparent distress Head exam: Present: atraumatic, other (Craniotomy incision clean dry and intact) Eye exam: Present: normal appearance, PERRL ENT exam: Present: normal exam Neck exam: Present: normal inspection. Absent: tenderness, meningismus Respiratory exam: Present: normal lung sounds bilaterally. Absent: respiratory distress, wheezes Cardiovascular Exam: Present: regular rate, normal rhythm GI/Abdominal exam: Present: soft. Absent: distended, tenderness, guarding Extremities exam: Present: normal inspection, normal capillary refill. Absent: pedal edema Neurological exam: Present: alert, oriented X3, CN II-XII intact, other (NIH is 0). Absent: motor sensory deficit Psychiatric exam: Present: normal affect, normal mood Skin exam: Present: warm, dry, intact Course Vital Signs 08/27/20 08/27/20 08/27/20 14:40 14:55 15:27 Temperature 97.9 F 97.6 F 97.9 F Pulse Rate 73 68 71 Respiratory 18 16 14 Rate Blood Pressure 154/94 169/90 153/87 O2 Sat by Pulse 97 96 98 Oximetry 08/27/20 15:52 Temperature 97.9 F Pulse Rate 71 Respiratory 14 Rate Blood Pressure 170/83 O2 Sat by Pulse 96 Oximetry - Reevaluation(s) Reevaluation #1: 08/27/20 15:30 Case discussed with physician assistant mechanic covering for interventional neurology out of [facility]. Patient not a TPA candidate given the results symptoms and recent intracranial hemorrhage. Reevaluation #2: 08/27/20 16:[address] Mcrae, agreeable with transfer to [facility] EKG Findings - EKG Comments: EKG Findings:: EKG: Normal sinus rhythm, incomplete left bundle, rate of 61, MI interval 150, QRS duration 112, QTC 416 Medical Decision Making - Medical Decision Making 64-year-old male with recent intracranial hemorrhage status post craniotomy presenting with an episode of a fever and difficulty speaking. Symptoms lasting approximate 45 minutes and resolved at the time of presentation. After discussion with both the radiologist and interventional neurology team he was recommended that CT angiography be performed these results are pending. CT of brain shows a component of possible acute intracranial hemorrhage. Patient is not on any anticoagulation. CT angiography pending Given this possible acute on chronic subdural patient will be transferred for neurology and neurosurgical evaluation at [facility]. Case has been discussed with the ER physician at [facility] Dr. Ramirez Patient is thrombocytopenic, otherwise laboratory testing is unremarkable. - Lab Data Result diagrams: 08/27/20 15:03 08/27/20 15:03 Lab Results 08/27/20 08/27/20 08/27/20 Range/Units 15:03 15:03 15:03 WBC 7.6 (3.8-10.6) k/uL RBC 4.25 L (4.30-5.90) m/uL Hgb 13.8 (13.0-17.5) gm/dL Hct 42.2 (39.0-53.0) % MCV 99.4 (80.0-100.0) fL MCH 32.4 (25.0-35.0) pg MCHC 32.6 (31.0-37.0) g/dL RDW 15.5 (11.5-15.5) % Plt Count 56 L (150-450) k/uL Neutrophils % 72 % Lymphocytes % 16 % Monocytes % 8 % Eosinophils % 1 % Basophils % 1 % Neutrophils # 5.5 (1.3-7.7) k/uL Lymphocytes # 1.2 (1.0-4.8) k/uL Monocytes # 0.6 (0-1.0) k/uL Eosinophils # 0.1 (0-0.7) k/uL Basophils # 0.0 (0-0.2) k/uL Manual Slide Review Performed Large Platelets Present Macrocytosis Slight PT 9.5 (9.0-12.0) sec INR 0.9 (<1.2) APTT 22.1 (22.0-30.0) sec Sodium 135 L (137-145) mmol/L Potassium 4.6 (3.5-5.1) mmol/L Chloride 107 (98-107) mmol/L Carbon Dioxide 22 (22-30) mmol/L Anion Gap 6 mmol/L BUN 23 H (9-20) mg/dL Creatinine 0.61 L (0.66-1.25) mg/dL Est GFR (CKD-EPI)AfAm >90 (>60 ml/min/1.73 sqM) Est GFR (CKD-EPI)NonAf >90 (>60 ml/min/1.73 sqM) Glucose 107 H (74-99) mg/dL Calcium 8.9 (8.4-10.2) mg/dL Total Bilirubin 0.5 (0.2-1.3) mg/dL AST 47 (17-59) U/L ALT 67 H (4-49) U/L Alkaline Phosphatase 69 (38-126) U/L Troponin I (0.000-0.034) ng/mL Total Protein 6.9 (6.3-8.2) g/dL Albumin 3.8 (3.5-5.0) g/dL 08/27/20 Range/Units 15:03 WBC (3.8-10.6) k/uL RBC (4.30-5.90) m/uL Hgb (13.0-17.5) gm/dL Hct (39.0-53.0) % MCV (80.0-100.0) fL MCH (25.0-35.0) pg MCHC (31.0-37.0) g/dL RDW (11.5-15.5) % Plt Count (150-450) k/uL Neutrophils % % Lymphocytes % % Monocytes % % Eosinophils % % Basophils % % Neutrophils # (1.3-7.7) k/uL Lymphocytes # (1.0-4.8) k/uL Monocytes # (0-1.0) k/uL Eosinophils # (0-0.7) k/uL Basophils # (0-0.2) k/uL Manual Slide Review Large Platelets Macrocytosis PT (9.0-12.0) sec INR (<1.2) APTT (22.0-30.0) sec Sodium (137-145) mmol/L Potassium (3.5-5.1) mmol/L Chloride (98-107) mmol/L Carbon Dioxide (22-30) mmol/L Anion Gap mmol/L BUN (9-20) mg/dL Creatinine (0.66-1.25) mg/dL Est GFR (CKD-EPI)AfAm (>60 ml/min/1.73 sqM) Est GFR (CKD-EPI)NonAf (>60 ml/min/1.73 sqM) Glucose (74-99) mg/dL Calcium (8.4-10.2) mg/dL Total Bilirubin (0.2-1.3) mg/dL AST (17-59) U/L ALT (4-49) U/L Alkaline Phosphatase (38-126) U/L Troponin I <0.012 (0.000-0.034) ng/mL Total Protein (6.3-8.2) g/dL Albumin (3.5-5.0) g/dL Critical Care Time Critical Care Time: Yes Total Critical Care Time: 35 Disposition Clinical Impression: Hx of intracranial hemorrhage, 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 Specs Out of Hospital Transfer - Requested Specifics: Other Emergency Center (T ransferred to [facility])
--- NOTE | 2020-08-27 16:11 | CT ---
EXAMINATION TYPE: CT angio head neck DATE OF EXAM: 08/27/2020 COMPARISON: CT brain 08/27/2020 HISTORY: 64-year-old male CVA. TECHNIQUE: Contiguous axial scanning of the head and neck performed with IV Contrast, patient injecte d with 65 mL of Isovue 370. Coronal and sagittal MIP reconstructions performed. 3-D reconstructions g enerated on a dedicated independent workstation. CT DLP: 686.8 mGycm Automated exposure control for dose reduction was used. FINDINGS: Neck: Left anterior chest wall pacemaker generator. Mild atherosclerotic arch calcifications. Conventional arch vessel branching anatomy. Mild atheroscle rotic narrowing origin of the left common carotid artery. There is mild atherosclerotic change at the left carotid bifurcation and mild to moderate on the righ t with mild, less than 25% narrowing at the proximal right ICA and no significant narrowing proximal left ICA. The common carotid arteries are patent. Possible moderate stenoses at the origin of the bilateral vertebral arteries. The right vertebral art chandrakant is dominant. HEAD: Dominant right vertebral artery. Hypoplastic V4 segment left vertebral artery. Basilar artery and rem ainder of the posterior circulation appears patent. Scattered moderate atherosclerotic change throughout the bilateral carotid siphons. Remainder of the anterior circulation appears patent. No aneurysmal change is identified. Previous left-sided craniotomy flap and extra-axial fluid collection described on separate CT had rep ort. IMPRESSION: 1. NECK: MILD, LESS THAN 25% ATHEROSCLEROTIC NARROWING AT THE PROXIMAL RIGHT ICA. POSSIBLE MODERATE S TENOSES OF THE BILATERAL VERTEBRAL ARTERY ORIGINS WITH A DOMINANT RIGHT VERTEBRAL ARTERY. NO HEMODYNA DIETER SIGNIFICANT ICA STENOSIS ON EITHER SIDE. 2. HEAD: No large vessel intracranial arterial occlusion, significant stenosis, or aneurysmal change is seen. Moderate scattered atherosclerotic changes are present in the bilateral carotid siphons. Con genitally hypoplastic left vertebral artery.
[2020-08-27 16:19] VITALS: BP 152/85; PULSE 74
== END 2020-08-27 16:48 | disposition other institution (70) ==
LOC: EC 14:36
DX: I62.00 Nontraumatic subdural hemorrhage, unspecified (principal); R47.81 Slurred speech; D69.3 Immune thrombocytopenic purpura; E78.5 Hyperlipidemia, unspecified; I10 Essential (primary) hypertension; I25.10 Atherosclerotic heart disease of native coronary artery without angina pectoris; Z79.899 Other long term (current) drug therapy; Z88.6 Allergy status to analgesic agent; Z91.040 Latex allergy status; Z95.5 Presence of coronary angioplasty implant and graft; Z86.73 Personal history of transient ischemic attack (TIA), and cerebral infarction without residual deficits; Z98.890 Other specified postprocedural states; Z87.891 Personal history of nicotine dependence
CPT/HCPCS: 36415; 93005; 80053; 84484; 85025; 85610; 85730; 71046; 70496; 70450; 70498; 99291; Q9967

== ENCOUNTER → 2021-03-01 | Outpatient (CLI) | payer MEDICARE ==
--- NOTE | 2021-03-02 05:38 | EEG ---
ELECTROENCEPHALOGRAM REPORT DATE OF SERVICE: 03/01/2021 PREAMBLE: This is a 65-year-old male who was in usual state of health in June 2020 on vacation in the [place] when he fell and hit his head. He was apparently walking up some stairs in the hotel when he fell backwards with his head hitting the concrete. He was unconscious and lost bladder and bowel control. He had significant alcohol levels above normal range at that time. He was taken to the local hospital and then transferred to [facility] where he underwent a craniotomy over the left frontal temporal region and the flap was not replaced until 08/07/2020. He was on ventilator for 6 days. This study is performed to look for any epileptiform activities. CURRENT MEDICATIONS: Lipitor, omeprazole, carvedilol, lisinopril. EEG FINDINGS: This is a 21 channel routine EEG recording in a patient utilizing 10-20 international system with referential and bipolar montages. The background consists of well developed, well regulated, moderate voltage activity in 7-8 hertz mixed alpha and theta range. Background is posterior dominant and seems to be reactive to eye opening and closing. There is a higher amplitude activity seen in the left central region, suggestive of a breach rhythm due to craniotomy defect. No epileptiform activity was seen. Different stages of sleep were not seen. The photic driving response was not seen. IMPRESSION: This is a mildly abnormal EEG due to: 1. Amplitude asymmetry with relatively higher amplitude activity noted in the left central region, suggestive of a breach rhythm due to craniotomy defect. 2. Minimal background slowing, suggestive of mild encephalopathy. 3. No epileptiform activity was seen. MMODL / IJN: [id number] /
== END ==
LOC: NEUROMAIN 07:36
PROVIDERS: ATTEND Psychiatry & Neurology Neurology
DX: R94.01 Abnormal electroencephalogram [EEG] (principal); F17.200 Nicotine dependence, unspecified, uncomplicated
CPT/HCPCS: 95816

== ENCOUNTER → 2022-10-25 | Outpatient (CLI) | payer MEDICARE ==
[2022-10-25 14:56] LABS: ALT 40 U/L (10-49); AST 28 U/L (14-35); African American GFR (CKD) 90.5 (60.0-200.0); Albumin 4.5 g/dL (3.8-4.9); Albumin/Globulin Ratio 1.96 (1.60-3.17); Alkaline Phosphatase 41 U/L (41-126); Blood Urea Nitrogen 25.8 mg/dL (9.0-27.0); Carbon Dioxide 22.1 mmol/L (20.0-27.5); Chloride 105 mmol/L (96-109); Chol/HDL Ratio 4.41 Ratio; Globulin 2.3 g/dL (1.6-3.3); Glucose 119 mg/dL (70-110); LDL Cholesterol,Calculated 68.8 mg/dL (0.0-131.0); Non-African American GFR(CKD) 78.1 (60.0-200.0); Potassium 4.2 mmol/L (3.5-5.5); Sodium 138 mmol/L (135-145); Total Protein 6.8 g/dL (6.2-8.2)
[2022-10-25 17:01] LABS: Basophils # (A) 0.04 X 10*3/uL (0.00-0.10); Basophils % (A) 0.7 %; Eosinophils # (A) 0.11 X 10*3/uL (0.04-0.35); HCT 40.3 % (39.6-50.0); HGB 13.3 g/dL (13.0-17.0); Immature Grans, Automated 0.4 %; Lymphocytes % (A) 28.7 %; MCH 30.8 pg (27.0-32.0); MCV 93.3 fL (80.0-97.0); Monocytes # (A) 0.63 X 10*3/uL (0.20-1.00); Monocytes % (A) 11.3 %; NRBC Per 100 WBC 0 /100 WBCS (0.0-0.0); Neutrophils # (A) 3.17 X 10*3/uL (1.80-7.70); Neutrophils % (A) 56.9 %; Platelet Count 97 X 10*3/uL (140-440); RBC 4.32 X 10*6/uL (4.40-5.60); RBC Morphology NORMAL; RDW 13.2 % (11.5-14.5); WBC 5.57 X 10*3/uL (4.50-10.00)
== END | disposition home or self-care (01) ==
LOC: LABWHC1 09:48
PROVIDERS: ATTEND Family Medicine
DX: Z12.5 Encounter for screening for malignant neoplasm of prostate (principal); E78.5 Hyperlipidemia, unspecified
CPT/HCPCS: 36415; 80053; 80061; 84153; 84443; 85025

== ENCOUNTER → 2023-03-07 | Outpatient (CLI) | payer MEDICARE | END | disposition home or self-care (01) | LOC: LABWHC1 11:49 | PROVIDERS: ATTEND Family Medicine | DX: Z53.9 Procedure and treatment not carried out, unspecified reason (principal) ==

== ENCOUNTER → 2023-03-08 | Outpatient (CLI) | payer MEDICARE ==
[2023-03-08 18:51] LABS: African American GFR (CKD) 72.6 (60.0-200.0); BUN/Creat Ratio 16.83 Ratio (12.00-20.00); Blood Urea Nitrogen 20.2 mg/dL (9.0-27.0); Calcium 10.1 mg/dL (8.7-10.3); Carbon Dioxide 20.3 mmol/L (20.0-27.5); Chloride 107 mmol/L (96-109); Glucose 126 mg/dL (70-110); LDL Cholesterol,Calculated 64.3 mg/dL (0.0-131.0); Non-African American GFR(CKD) 62.6 (60.0-200.0); Potassium 4.3 mmol/L (3.5-5.5); Sodium 142 mmol/L (135-145)
== END | disposition home or self-care (01) ==
LOC: LABWHC1 08:45
PROVIDERS: ATTEND Family Medicine
DX: E78.5 Hyperlipidemia, unspecified (principal)
CPT/HCPCS: 36415; 80048; 80061; 83036

== ENCOUNTER → 2024-06-04 | Outpatient (CLI) | payer MEDICARE ==
--- NOTE | 2024-06-08 11:29 | CT ---
EXAMINATION TYPE: CT lumbar spine wo con CT DLP: 1336.3 mGycm, Automated exposure control for dose reduction was used. DATE OF EXAM: 06/04/2024 5:28 PM COMPARISON: . CLINICAL INDICATION:Male, 68 years old with history of M54.51 VERTEBROGENIC LOW BACK PAIN; PHH, bilat eral leg pain and weakness TECHNIQUE: Multiple axial images were obtained from the midportion of T11 through the sacroiliac berenice nts. Soft tissue and bone windows in coronal and sagittal planes were obtained and reviewed. 3-D ref ormats of the bones were created on a separate workstation and submitted for review. Contrast used: mL of , (None, if empty). Oral contrast used: (None, if empty). FINDINGS: Alignment: There are 5 lumbar type vertebral bodies within normal alignment. Bone: Vertebral body heights are maintained. No vertebral body fracture. Bony variation of the poste rior element adjacent to the inferior aspect of the L5 spinous process could potentially represent a nondisplaced fracture. Moderately pronounced facet joint osteoarthritis at L4-L5 manifested as scler osis and periarticular osteophytes. L5-S1 bone spurring (disc osteophyte complex) at the right neural foramen stenosis moderate to severe neural foraminal stenosis. Discs: Disc heights are preserved. Minimal diffuse disc bulging L3-L4 below. No spinal canal or neural foraminal stenosis is otherwise identified, except as noted above. Other: Scattered foci of calcific plaque in the abdominal aorta and common iliac arteries IMPRESSION: 1. Bony variation of the posterior element adjacent to the right inferior aspect of the L5 spinous pr ocess could potentially represent a nondisplaced fracture. 2. L5-S1 disc osteophyte produces moderate to severe right neural foraminal stenosis. 3. Moderate facet joint arthritis L4-L5
== END | disposition home or self-care (01) ==
LOC: RADCTMAIN 16:29
PROVIDERS: ATTEND Physical Medicine & Rehabilitation
DX: M48.062 Spinal stenosis, lumbar region with neurogenic claudication (principal); M41.86 Other forms of scoliosis, lumbar region; M43.16 Spondylolisthesis, lumbar region; M51.16 Intervertebral disc disorders with radiculopathy, lumbar region; M54.51 Vertebrogenic low back pain
CPT/HCPCS: 72131

== ENCOUNTER → 2024-09-13 | Outpatient (CLI) | payer MEDICARE ==
--- NOTE | 2024-09-15 00:52 | CTL ---
EXAMINATION TYPE: CT Low Dose Lung DATE OF EXAM ORDERED: 09/13/2024 COMPARISON: Chest radiograph 08/27/2020 CLINICAL INDICATION: Male, 68 years old with history of Z12.2 ENCNTR SCREEN FOR DAWNA Z87.891 PERSONAL HIST; PHH, Nicotine dependence of 1ppd x49 years. not current smoker, Lung cancer screening, History of Smoking/tobacco use. TECHNIQUE: Low dose computed tomography scan was performed through the chest at 1 mm thick sections a nd reconstructed images in multiple planes at 1 mm and [address] DLP: 91.[address] CTDI: 2.6 mGy Automated exposure control for dose reduction was used. CT DIAGNOSTIC QUALITY: Satisfactory FINDINGS: Nodules: Superior segment left lower lobe 2.5 mm calcified granuloma. No clinically significant pulmonary nodules. LUNGS: COPD: Severity: Minimal Fibrosis: Severity: None Lymph nodes: No pathologically enlarged lymph nodes. Couple of calcified right hilar lymph nodes. Other findings: None RIGHT PLEURAL SPACE: Effusion: None Calcification: None Thickening: None Pneumothorax: None LEFT PLEURAL SPACE: Effusion: None Calcification: None Thickening: None Pneumothorax: None HEART: Heart Size: Mildly prominent size, left chest wall cardiac pacemaking device with leads terminating i n the right ventricle., Coronary Calcification: Moderate to severe Pericardial Effusion: Trace OTHER FINDINGS: Upper abdomen: Cholelithiasis. Bony thorax: Mild multilevel degenerative disc disease of the visualized spine. Supraclavicular region: None Other: None IMPRESSION: 1. No clinically significant pulmonary nodules. 2. Sequelae of prior granulomatous disease. 3. Cholelithiasis. CT LUNG RAD AND CT CHEST RECOMMENDATION: Lung-Rad 1 Negative: Continue annual screening with LDCT in 12 months. S Modifier (other clinically significant findings): None [facility], , 09/15/2024 12:50 AM
== END | disposition home or self-care (01) ==
LOC: RADCTMAIN 15:25
PROVIDERS: ATTEND Internal Medicine Hematology & Oncology
DX: Z12.2 Encounter for screening for malignant neoplasm of respiratory organs (principal); Z87.891 Personal history of nicotine dependence; K80.20 Calculus of gallbladder without cholecystitis without obstruction
CPT/HCPCS: 71271